=== PATIENT | male | born 1940 | race Caucasian/White ===

== ENCOUNTER 2017-04-23 02:48 | Inpatient (IN) | payer MEDICARE, OTHER ==
[2017-04-23] MEDS ORDERED: methylPREDNISolone Sod Succ/PF 125 MG/2 ML VIAL ONE (02:59)
[2017-04-23] MEDS ORDERED: Albuterol Sulfate 2.5 mg/3 ml Neb ONE (03:08)
[2017-04-23] MEDS ORDERED: Midazolam HCl 2 mg/2 ml Vial ONE (03:11)
[2017-04-23 03:25] LABS: pH, Arterial 7.37 (7.35-7.45)
[2017-04-23 03:25] LABS: Hemoglobin 9.9 g/dL (14.0-18.0); MDiff Complete? YES; Mean Corpuscular HGB CONC 29.8 g/dL (32.0-36.0); Mean Corpuscular Hemoglobin 27.7 pg (27.0-31.0); Mean Corpuscular Volume 92.8 fl (80.0-94.0); Mean Platelet Volume 6.3 fL (7.4-10.4); Platelet Count 365 thou/uL (130-400); RBC Distribution Width 18.4 % (11.5-14.5); Red Blood Cell (RBC) Count 3.57 mill/uL (4.70-6.10)
[2017-04-23 03:26] LABS: Eosinophils 1 % (0-10); Lymphocytes 10 % (21-51); Monocytes 2 % (0-10); Neutrophil 87 % (42-75); PLT Morphology Comment Appears Adequate
[2017-04-23 03:26] LABS: Base Excess (BEa) 5.8 mEq/L (0 (+/-) 2.5); CO2 Tension 56.8 mmHg (35.0-45.0); Hematocrit-ABG 28.9 % (42.0-52.0); Hemoglobin (Hb) 8.4 g/dL (14.0-18.0); O2 Tension (PaO2) 87.9 mmHg (80.0-100.0)
[2017-04-23 03:27] LABS: Analyzer IN Cardio ER; Calcium, Ionized 1.2 mmol/L (1.12-1.30); Puncture Site LRA
[2017-04-23 03:31] LABS: ALT (SGPT) 45 U/L (8-55); AST (SGOT) 41 U/L (5-34); Albumin 3.1 g/dL (3.4-4.8); Alkaline Phosphatase 51 U/L (40-150); Anion Gap 15 mmol/L (10-20); BUN (Urea Nitrogen) 22 mg/dL (8.4-25.7); Bilirubin, Total 0.5 mg/dL (0.2-1.2); CK (CPK) 21 U/L (30-200); Calc. Creatinine Clearance 0 mL/min (70-130); Carbon Dioxide 31 mmol/L (23-31); Chloride 94 mmol/L (98-107); Estimated GFR-MDRD 80; Globulin 2.3 g/dL (2.4-3.5); Glucose 229 mg/dL (83-110); Potassium 5.3 mmol/L (3.5-5.1); Protein, Total 5.4 g/dL (5.8-8.1); Sodium 135 mmol/L (136-145)
[2017-04-23 03:35] LABS: CKMB 2.1 ng/mL (0-6.6); Troponin I 0.094 ng/mL (< 0.028)
[2017-04-23] MEDS ORDERED: Propofol 1,000 MG/100 ML VIAL IV ONE (03:35)
[2017-04-23] MEDS ORDERED: Azithromycin 500 MG in Sodium Chloride 0.9% 250 ML 250 ML IVPB SCH (03:45)
--- NOTE | 2017-04-23 08:20 | RAD ---
SINGLE VIEW OF THE CHEST: COMPARISON: 03/24/11. HISTORY: Respiratory distress. FINDINGS: A single view of the chest shows an enlarged but stable cardiomediastinal silhouette. An endotrachea l tube is seen with its tip between the clavicles. An NG tube has its tip in the stomach and its stephan eport near the esophagogastric junction. A left-sided pacemaker has been placed in the interval. It s leads are in the right atrium and ventricle. There appears to be elevation of the right hemidiaphr agm, but this could represent a moderate right pleural effusion. There are multifocal increased inte rstitial lung markings. There appear to be superimposed multifocal infiltrates. There are remote he aled right rib fractures. IMPRESSION: 1. Moderate right pleural effusion. 2. Multifocal pneumonia. POS: [facility]
[2017-04-23] MEDS ORDERED: Enoxaparin Sodium 40 MG/0.4 ML SYRINGE SC SCH (09:00)
[2017-04-23] MEDS: Cefepime 2 GM in Syringe 12.5 ML SLOW IVP SCH ×2 (09:19→21:10)
[2017-04-23] MEDS: Pantoprazole 40 MG VIAL IVP SCH (09:20)
[2017-04-23 09:33] LABS: Lactic Acid 2.4 mmol/L (0.5-2.2)
[2017-04-23] MEDS ORDERED: fentaNYL Citrate/PF 2,000 MCG in Sodium Chloride 0.9% 60 ML IV SCH (09:48)
[2017-04-23] MEDS: Vancomycin HCl 1 GM in Premix Bag 1 BAG IVPB SCH ×2 (09:56→21:54)
[2017-04-23] MEDS ORDERED: Dextrose 5 % And 0.9 % NaCl 1,000 ML IV SCH (10:00)
[2017-04-23] MEDS ORDERED: Sodium Chloride 0.9% 1,000 ML IV SCH (12:15)
--- NOTE | 2017-04-23 13:04 | CON ---
DATE OF CONSULTATION: 04/23/2017 HISTORY OF PRESENT ILLNESS: Mr. Kasper is a 77-year-old male. He is not someone who has been in [facility] frequently here. He presented via EMS after being in the field, intubated. EMS was called for shortness of breath. Apparently they started him on CPAP, he became unresponsive, so he was intubated. He received 200 ketamine, 100 mg of rocuronium and 10 mg of Versed prior to arrival reportedly. PAST MEDICAL HISTORY: According to the ER records are remarkable for coronary disease, cardiomyopath y, atrial fibrillation, diabetes, hypertension, COPD, asthma, pneumonia and a pacemaker. SOCIAL HISTORY: It is unknown whether he smokes or drinks. ALLERGIES: There are no reported drug allergies prior to admission. MEDICATIONS: It is unclear what medicines he was on. REVIEW OF SYSTEMS: Cannot be obtained. PHYSICAL EXAMINATION: VITAL SIGNS: Blood pressure 124/37, heart rate 71, he is afebrile, respiratory rate is 20, oximetry is 99. HEENT: Pupils are equal. Sclerae are anicteric. LUNGS: Clear. GENERAL: He appears chronically ill. HEART: Regular rhythm. S1 and S2 are normal. ABDOMEN: Soft and nontender. EXTREMITIES: Without clubbing, cyanosis, or edema. LABORATORY DATA: White count 27, hemoglobin 9.9, platelets 365. Sodium 135, potassium 5.3, chloride 94, bicarbonate 31, BUN 22, creatinine 0.9, glucose 229, AST 41, ALT 45. CPK was 21, troponin 0.094 . BNP 1471, albumin 3.1. Chest radiographs, reviewed by me, shows diffuse infiltrates, worse on the right. IMPRESSION: Respiratory failure. In my opinion, his acute onset and chest radiographs are more cons istent with congestive heart failure than pneumonia. I do agree with treating with pneumonia at [facility] initially. Echocardiogram has been ordered. His professor of english should be consulted. It is unclear to me who he sees at this time. When family becomes available, I will be happy to meet with them. I found a stress test report from 2010, but this was ordered by one of the hospitalists. Getting into the old computer system, he has been seen by Dr. Infante in 2010. He was intubated in [facility] emergency department at that admission; he was extubated on the . I cannot find any evidence that he has been seen by a professor of english here. He did have a severe FEV1 r eduction on PFTs done when he was seen in [address] Infante. We will continue to support him. We will await echocardiogram, and I will review that. We will probably consult Cardiology. We will con tinue with IV antibiotics for now. Steroids will be added and nebulizer treatments will be added as well. Critical care time 35 minutes.
--- NOTE | 2017-04-23 14:30 | CON ---
DATE OF CONSULTATION: 04/23/2017 REASON FOR CONSULTATION: Respiratory failure. HISTORY OF PRESENT ILLNESS: Ms. Kasper is a 77-year-old man. The patient was brought to the hospital with respiratory failure and is intubated on the ventilator, very little history is available at the present time. The patient was found to be in respiratory failure in the field, EMS intubated and brought him to her e. PAST MEDICAL HISTORY: 1. The patient has a history of coronary artery disease, but no other information is available. 2. History of cardiomyopathy. 3. History of atrial fibrillation. 4. Diabetes. 5. COPD. 6. Asthma. 7. Pneumonia. 8. Previous pacemaker. SOCIAL HISTORY: Unknown if he smokes or drinks. ALLERGIES: No reported drug allergies. MEDICATIONS: Unknown at the present time. REVIEW OF SYSTEMS: Not obtainable, intubated on the ventilator. PHYSICAL EXAMINATION: GENERAL: This is a critically ill-appearing elderly gentleman who looks older than his stated age at 77. VITAL SIGNS: His blood pressure is 124/40, pulse is 70. HEENT: Eyes nonicteric. NECK: Neck veins are normal. Carotid normal upstrokes. LUNGS: There is diffuse expiratory wheezing, some rhonchi. CARDIAC: Normal S1, normal S2. Somewhat distant. I do not hear a murmur, rub or gallop. ABDOMEN: Soft, nontender, no hepatosplenomegaly. EXTREMITIES: No clubbing or cyanosis. There is moderate edema. Warm and dry. Peripheral pulses: He has femoral pulses bilaterally. I do not feel pedal pulses on either foot, I do not feel poplitea l pulses. He is intubated and sedated. LABORATORY AND X-RAY FINDINGS: EKG reveals what looks like atrial fibrillation with some ST and T-wa ve changes, consider ischemia. Chest x-ray shows congestive heart failure, pulmonary vascular congestion, large right pleural effusi on, probable pneumonia. The pacemaker is in place as well. Other laboratory data: BNP is elevated at 1471.8. Troponin 0.094 initially and 0.9 followup. ASSESSMENT: 1. Congestive heart failure. Echocardiogram showed normal left ventricular function; therefore, it appears to be acute diastolic heart failure, probably on chronic, most likely acute on chronic diasto lic heart failure. 2. Non-ST elevation infarction, probably demand ischemia secondary likely to respiratory insufficien cy. 3. Underlying coronary artery disease. 4. Atrial fibrillation, unknown chronicity. PLAN: 1. Hopefully, some old records could be obtained. 2. We will give him some intravenous Lasix. 3. Aspirin. Prognosis is guarded in this gentleman. Hopefully, as mentioned other information could be obtained and it appears he also has pneumonia.
[2017-04-23] MEDS: Sodium Chloride 0.9% 1,000 ML IV SCH (14:40)
[2017-04-23] MEDS: Furosemide 20 MG/2 ML VIAL SLOW IVP SCH (15:59)
--- NOTE | 2017-04-23 16:30 | HP ---
CHIEF COMPLAINT: Short of breath, intubated. HISTORY OF PRESENT ILLNESS: This is a 77-year-old man with a history of chronic obstructive pulmonar y disease, on home oxygen. He was noted to have respiratory distress at home. EMS was activated. Desiree yun was given nebulizer and CPAP was placed, and he became more altered and breathing was stopped, so desiree e was intubated by the EMS with a 7.0 tube and given Versed and they brought him to the ER. PAST MEDICAL HISTORY: History of atrial fibrillation, COPD, pacemaker, MD. MEDICATIONS: He is taking levofloxacin 750 daily, [place] 10/325 daily, methylprednisone 4 mg daily, a torvastatin 80 mg daily, Symbicort aerosol twice daily, clopidogrel 75 daily, diltiazem 240 mg daily, Multaq 400 mg daily, ferrous sulfate 325 every day, furosemide 40 mg every day, gabapentin 300 mg da andrew, hydroxyzine 20 mg daily, DuoNeb, Combivent, Lopressor 50 daily, potassium daily, Xarelto 20 mg d aily, Spiriva 2 puffs daily. REVIEW OF SYSTEMS: Not possible, because intubated and sedated. PHYSICAL EXAMINATION: GENERAL: He is a 77-year-old man, lying in the bed, intubated, and sedated on FiO2 50%, tidal volume 350 and PEEP 5. HEENT: Head is normocephalic. Pupils are round and reactive. Ears, nose, throat normal. NECK: Good pple, no JVD. Trachea midline. CHEST EXAMINATION: Intubated and he has bilateral decreased breath sounds with diffuse expiratory wh eezing or rhonchi. CARDIOVASCULAR: S1, S2 audible. No S3 or S4. ABDOMEN: Soft. Bowel sounds audible. No distention, no mass, no organomegaly. EXTREMITIES: He has bilateral pedal edema present that is +2. NEUROLOGIC: He is a GCS 3, intubated and sedated. SKIN: Normal in color. LABORATORY DATA: Shows EKG, atrial fibrillation with controlled rate, no ST changes. A chest x-ray shows right upper lobe infiltrate. Lab shows WBC of 27.0, hematocrit 33.1, hemoglobin 9.0, platelets 365. Sodium 135, potassium 5.3, ch loride 94, carbon dioxide 31, BUN 20, creatinine 0.9, GFR 80. Lactic acid 3.7, calcium 9.0, total bi lirubin 0.5, AST 41, ALT 45. Troponin 0.094. BNP 1471.8. Serum protein 5.4, albumin 3.1, and globu lesia 2.3, albumin ratio 1.3. Blood gas shows a pH of 7.37, pCO2 of 56, pO2 of 87, bicarbonate 32. Ch est x-ray shows the above infiltrate. ASSESSMENT AND PLAN: 1. Acute respiratory failure with hypoxia and hypercapnia. 2. Chronic obstructive pulmonary disease. 3. Intubated and sedated. Continue ventilator protocol, IV propofol for sedation. Litigation Docket Manager, Dr. Peoples, consulted. 4. Sepsis secondary to pneumonia. Blood culture x2 was done. Continue IV Rocephin and Zithromax. Follow CBC. 5. History of chronic obstructive pulmonary disease. Continue nebulizer. 6. Deep venous thrombosis prophylaxis will be Lovenox and stress ulcer prophylaxis PPI. PROGNOSIS: Guarded.
[2017-04-23] MEDS: Lorazepam 2 MG/ML VIAL SLOW IVP PRN ×2 (17:26→21:10)
[2017-04-23 17:41] LABS: Bilirubin Negative (Negative); Blood, Urine Large (Negative); Clarity CLEAR (Clear); Glucose, Urine (Dipstick) Negative (Negative); Leukocyte Small (Negative); Nitrite Negative (Negative); Protein, Urine (Dipstick) Negative (Neg-Trace); Specific Gravity, Urine 1.015 (1.002-1.036); Urobilinogen 0.2 mg/dL (0.2-1.0); pH, Urine 6.5 (5.0-9.0)
[2017-04-23 17:44] LABS: Bacteria/HPF None Seen HPF (None Seen); Hyaline Casts/LPF 4-6 HYALINE CAST LPF (0-3 Hyaline); Pathc Cast-AUWi Flag 1.35 (0-2.49); RBC/HPF 21-50 HPF (0-3)
[2017-04-23 18:13] LABS: Renal Epithelial 0-3 HPF (0-3)
[2017-04-23 19:10] LABS: Troponin I 1.056 ng/mL (< 0.028)
[2017-04-23] MEDS: Enoxaparin Sodium 60 MG/0.6 ML SYRINGE SC SCH (20:11)
[2017-04-23] MEDS: Propofol 1,000 MG/100 ML VIAL IV PRN (20:11)
[2017-04-24] MEDS: Lorazepam 2 MG/ML VIAL SLOW IVP PRN ×3 (03:19→12:32)
[2017-04-24] MEDS: Propofol 1,000 MG/100 ML VIAL IV PRN ×4 (05:08→23:31)
[2017-04-24] MEDS: Furosemide 20 MG/2 ML VIAL SLOW IVP SCH ×2 (05:08→15:02)
[2017-04-24 05:15] LABS: #Lymphocytes 0.7 thou/uL (1.20-3.40); #Monocytes 0.2 thou/uL (0.11-0.59); #Neutrophils 10.8 thou/uL (1.40-6.50); %Basophils 0.1 % (0.0-1.0); %Eosinophils 0.2 % (0.0-10.0); %Lymphocytes 6.3 % (21.0-51.0); %Monocytes 1.7 % (0.0-10.0); %Neutrophils 91.8 % (42.0-75.0); Hemoglobin 8.3 g/dL (14.0-18.0); Mean Corpuscular Hemoglobin 28.7 pg (27.0-31.0); Mean Corpuscular Volume 89.7 fl (80.0-94.0); Mean Platelet Volume 6.8 fL (7.4-10.4); Platelet Count 206 thou/uL (130-400); RBC Distribution Width 18.5 % (11.5-14.5); Red Blood Cell (RBC) Count 2.89 mill/uL (4.70-6.10); White Blood Cell (WBC) Count 11.8 thou/uL (4.8-10.8)
[2017-04-24 05:19] LABS: ALT (SGPT) 30 U/L (8-55); AST (SGOT) 22 U/L (5-34); Albumin 2.9 g/dL (3.4-4.8); Alkaline Phosphatase 43 U/L (40-150); Anion Gap 12 mmol/L (10-20); BUN (Urea Nitrogen) 22 mg/dL (8.4-25.7); Bilirubin, Total 0.5 mg/dL (0.2-1.2); Calc. Creatinine Clearance 81 mL/min (70-130); Calcium 8.8 mg/dL (7.8-10.44); Carbon Dioxide 32 mmol/L (23-31); Chloride 99 mmol/L (98-107); Estimated GFR-MDRD Greater than 90; Globulin 2.1 g/dL (2.4-3.5); Glucose 112 mg/dL (83-110); Potassium 4.5 mmol/L (3.5-5.1); Sodium 138 mmol/L (136-145)
[2017-04-24 05:39] LABS: Anisocytosis SLIGHT = 6-15 cells (100X) (0-5/hpf); Band 3 % (5-11); Bite Cells SLIGHT = 2-5 cells (100X) (0-1/hpf); Hemoglobin 8.3 g/dL (14.0-18.0); Lymphocytes 8 % (21-51); MDiff Complete? YES; Mean Corpuscular HGB CONC 32.3 g/dL (32.0-36.0); Mean Corpuscular Volume 89.7 fl (80.0-94.0); Mean Platelet Volume 6.9 fL (7.4-10.4); Neutrophil 89 % (42-75); PLT Morphology Comment Appears Adequate; Platelet Count 206 thou/uL (130-400); RBC Distribution Width 18.5 % (11.5-14.5); Red Blood Cell (RBC) Count 2.88 mill/uL (4.70-6.10); Schistocytes SLIGHT = 2-5 cells (100X) (0-1/hpf); White Blood Cell (WBC) Count 11.8 thou/uL (4.8-10.8)
--- NOTE | 2017-04-24 09:03 | RAD ---
CHEST ONE VIEW: History: Dyspnea, follow up. Comparison: 04-23-17 FINDINGS: Cardiac silhouette is magnified by projection and partially obscured by pleural fluid and patchy biba silar infiltrates, right greater than left. Pulmonary vasculature remains engorged with wide-spread r eticular nodular interstitial prominence. Patient rotated leftward. Lines and tubes appear unchanged in position. IMPRESSION: 1. Pulmonary edema with pleural fluid and other findings is stable compared to the previous exam. POS: [facility]
[2017-04-24] MEDS: Cefepime 2 GM in Syringe 12.5 ML SLOW IVP SCH ×2 (09:18→20:12)
[2017-04-24] MEDS: Enoxaparin Sodium 60 MG/0.6 ML SYRINGE SC SCH (09:19)
[2017-04-24] MEDS: Pantoprazole 40 MG VIAL IVP SCH (09:19)
[2017-04-24] MEDS: Vancomycin HCl 1 GM in Premix Bag 1 BAG IVPB SCH ×2 (09:19→22:19)
[2017-04-24] MEDS: Sodium Chloride 0.9% 1,000 ML IV SCH (09:40)
[2017-04-24 10:19] LABS: pH, Arterial 7.58 (7.35-7.45)
[2017-04-24 10:20] LABS: Base Excess (BEa) 8.6 mEq/L (0 (+/-) 2.5); CO2 Tension 33.6 mmHg (35.0-45.0); Calcium, Ionized 1.1 mmol/L (1.12-1.30); Hemoglobin (Hb) 8.2 g/dL (14.0-18.0); O2 Tension (PaO2) 117.8 mmHg (80.0-100.0); Puncture Site LRA
--- NOTE | 2017-04-24 13:16 | PRG ---
DATE OF SERVICE: 04/24/2017 SUBJECTIVE: Mr. Kasper is intubated and on the ventilator, sedated. OBJECTIVE: VITAL SIGNS: Blood pressure 119/43, pulse 80. LUNGS: Clear. CARDIAC: Heart sounds are easier to hear today. There is a 2-3/6 crescendo-decrescendo murmur along the left sternal border and systolic. ABDOMEN: Soft, nontender. EXTREMITIES: Only mild edema. IMAGING: Echocardiogram, normal ejection fraction, mild to moderate aortic stenosis. ASSESSMENT: 1. Respiratory failure. 2. Coronary artery disease, no details available. 3. Mild to moderate aortic stenosis. 4. History of atrial fibrillation. 5. Previous pacemaker insertion. 6. Pacemaker is a [employer] device, normal device check, A-pacing 93%, currently in sinus rhythm, 25 episodes of atrial fibrillation since January, battery is okay. PLAN: 1. Continue current medical regimen. 2. Continue intravenous furosemide. 3. Reduce Lovenox back to 40 q.12 hours as he is maintaining sinus rhythm.
--- NOTE | 2017-04-24 13:18 | PRG ---
DATE OF SERVICE: 04/24/2017 SUBJECTIVE: Mr. Kasper is hemodynamically stable overnight. PHYSICAL EXAMINATION: VITAL SIGNS: His temperature maximum was 99.4. Respiratory rate is in 20s when he is sedated. Heart rate is 94, blood pressure 124/59. Intake and output is -438. GENERAL: He will awaken. He is pretty much all over the bed if he awakens. LUNGS: Remarkable for crackles bilaterally. HEART: Regular rhythm. ABDOMEN: Soft. LABORATORY DATA AND IMAGING DATA: White count 13.8, hemoglobin 8.3, platelets 206,000. Sodium 138, potassium 4.5, chloride 99, bicarbonate 32, BUN 22, creatinine 0.78. Chest radiograph reviewed by me shows what appears to be a large right effusion. Echocardiogram showed noncritical aortic stenosis and a normal ejection fraction. IMPRESSION: 1. Pneumonia. 2. Respiratory failure. 3. ? underlying pulmonary fibrosis. I do not have any old imaging for comparison. PLAN: Continue ventilatory support. CT scanning of his chest today without contrast. Continue gentle diuresis. CRITICAL CARE TIME : Reviewing radiographs records and coordinating care 30 minutes. [facility]
--- NOTE | 2017-04-24 14:06 | CT ---
EXAM: CT chest without contrast DATE: 04/24/17 COMPARISON: 04/24/17 FINDINGS: The patient is intubated, endotracheal tube tip below the clavicles. An enteric tube tip is in the g astric body. There are large bilateral layering pleural effusions. Heart size is enlarged. No pericardial effusi on. Numerous mediastinal lymph nodes are present, the majority of these contain normal fatty hilum. Healing right lateral 3rd, right lateral 4th, right anterior 4th, right lateral 5th, right lateral 6t h, 8th, 9th, 10th rib fractures. There are also healing left anterior 4th, 5th, and 6th rib fracture s, and lateral 7th, 8th, 9th, and 10th rib fractures. There are spine compression fractures at T4 and T5 and T11. The gallbladder is mildly distended. Th e spleen measures 14.5 cm. IMPRESSION: 1. Large bilateral layering pleural effusions. 2. Airspace consolidation in the right middle lobe and right upper lobe concerning for pneumonia. 3. Cardiomegaly. 4. Numerous bilateral rib fractures. POS: [facility]
--- NOTE | 2017-04-24 16:39 | PDOC.PN ---
- Subjective Encounter Start Date: 04/24/17 Encounter Start Time: 16:38 Patient seen and examined. No new complaints. No overnight events - Objective MAR Reviewed: Yes Vital Signs & Weight: Vital Signs (12 hours) Temp Pulse Resp BP Pulse Ox 04/24/17 16:00 99.3 F 22 H 04/24/17 14:36 82 109/44 L 04/24/17 14:34 85 20 97 04/24/17 14:00 21 H 04/24/17 12:00 99.4 F 20 04/24/17 11:19 77 119/43 L 04/24/17 11:18 81 23 H 97 04/24/17 10:00 20 04/24/17 08:00 20 04/24/17 07:44 99.3 F 74 20 98 04/24/17 07:10 74 130/43 L 04/24/17 07:08 71 20 99 04/24/17 07:00 99.3 F 04/24/17 06:00 20 Weight Admit Weight 158 lb Weight 158 lb 8.198 oz Most Recent Monitor Data Heart Rate from ECG 82 NIBP 109/44 NIBP BP-Mean 84 Respiration from ECG 21 SpO2 99 I&O: 04/23/17 04/24/17 04/25/17 06:59 06:59 06:59 Intake Total 1877 200 Output Total 2315 635 Balance -438 -435 Result Diagrams: 04/24/17 04:37 04/24/17 04:37 Phys Exam - Physical Examination intubated HEENT: moist MMs Neck: no JVD decreased bs at bases Cardiovascular: no significant murmur Musculoskeletal: pulses present Dx/Plan (1) Acute respiratory failure Code(s): J96.00 - ACUTE RESPIRATORY FAILURE, UNSP W HYPOXIA OR HYPERCAPNIA Status: Acute (2) PNA (pneumonia) Code(s): J18.9 - PNEUMONIA, UNSPECIFIED ORGANISM Status: Acute (3) Sepsis Code(s): A41.9 - SEPSIS, UNSPECIFIED ORGANISM Status: Acute (4) Pleural effusion Code(s): J90 - PLEURAL EFFUSION, NOT ELSEWHERE CLASSIFIED Status: Acute - Plan * cont vent support * abx * gentle diuresis * f/u pulm and card plan
[2017-04-24] MEDS: Enoxaparin Sodium 40 MG/0.4 ML SYRINGE SC SCH (20:11)
[2017-04-24 21:26] LABS: Vancomycin, Trough 16.6 ug/mL
[2017-04-25] MEDS: Lorazepam 2 MG/ML VIAL SLOW IVP PRN (00:23)
[2017-04-25] MEDS: Propofol 1,000 MG/100 ML VIAL IV PRN ×3 (04:59→17:52)
[2017-04-25] MEDS: Furosemide 20 MG/2 ML VIAL SLOW IVP SCH ×2 (05:00→13:25)
[2017-04-25 05:41] LABS: #Lymphocytes 0.7 thou/uL (1.20-3.40); #Monocytes 0.2 thou/uL (0.11-0.59); #Neutrophils 7.7 thou/uL (1.40-6.50); %Basophils 0.1 % (0.0-1.0); %Eosinophils 0.1 % (0.0-10.0); %Lymphocytes 8.5 % (21.0-51.0); %Monocytes 2.5 % (0.0-10.0); %Neutrophils 88.8 % (42.0-75.0); Hemoglobin 9.5 g/dL (14.0-18.0); Mean Corpuscular HGB CONC 32.4 g/dL (32.0-36.0); Mean Corpuscular Hemoglobin 29.1 pg (27.0-31.0); Mean Corpuscular Volume 89.8 fl (80.0-94.0); Mean Platelet Volume 6.9 fL (7.4-10.4); Platelet Count 204 thou/uL (130-400); RBC Distribution Width 18.5 % (11.5-14.5); Red Blood Cell (RBC) Count 3.28 mill/uL (4.70-6.10); White Blood Cell (WBC) Count 8.7 thou/uL (4.8-10.8)
[2017-04-25 06:02] LABS: Band 3 % (5-11); Hemoglobin 9.5 g/dL (14.0-18.0); Lymphocytes 6 % (21-51); MDiff Complete? YES; Mean Corpuscular HGB CONC 32.9 g/dL (32.0-36.0); Mean Corpuscular Hemoglobin 29.5 pg (27.0-31.0); Mean Corpuscular Volume 89.5 fl (80.0-94.0); Mean Platelet Volume 6.8 fL (7.4-10.4); Monocytes 3 % (0-10); Neutrophil 88 % (42-75); PLT Morphology Comment Appears Adequate; Platelet Count 202 thou/uL (130-400); RBC Distribution Width 18.5 % (11.5-14.5); Red Blood Cell (RBC) Count 3.23 mill/uL (4.70-6.10); White Blood Cell (WBC) Count 8.7 thou/uL (4.8-10.8)
[2017-04-25 06:10] LABS: Lactic Acid 1.1 mmol/L (0.5-2.2)
[2017-04-25] MEDS: Sodium Chloride 0.9% 1,000 ML IV SCH ×2 (06:16→12:00)
[2017-04-25 06:36] LABS: ALT (SGPT) 25 U/L (8-55); AST (SGOT) 20 U/L (5-34); Albumin 2.8 g/dL (3.4-4.8); Alkaline Phosphatase 44 U/L (40-150); Anion Gap 15 mmol/L (10-20); BUN (Urea Nitrogen) 23 mg/dL (8.4-25.7); Bilirubin, Total 0.6 mg/dL (0.2-1.2); Calc. Creatinine Clearance 85 mL/min (70-130); Calcium 9.1 mg/dL (7.8-10.44); Carbon Dioxide 26 mmol/L (23-31); Chloride 101 mmol/L (98-107); Estimated GFR-MDRD Greater than 90; Globulin 2.5 g/dL (2.4-3.5); Glucose 117 mg/dL (83-110); Protein, Total 5.3 g/dL (5.8-8.1); Sodium 138 mmol/L (136-145)
[2017-04-25 08:01] LABS: Actual Bicarbonate (HCO3a) 33.1 mEq/L (22-26); Base Excess (BEa) 7.8 mEq/L (0 (+/-) 2.5); CO2 Tension 50.8 mmHg (35.0-45.0); Hemoglobin (Hb) 8.2 g/dL (14.0-18.0); O2 Tension (PaO2) 80.3 mmHg (80.0-100.0); pH, Arterial 7.43 (7.35-7.45)
[2017-04-25 08:02] LABS: Puncture Site LRA
[2017-04-25] MEDS: Cefepime 2 GM in Syringe 12.5 ML SLOW IVP SCH ×2 (08:07→20:25)
[2017-04-25] MEDS: Enoxaparin Sodium 40 MG/0.4 ML SYRINGE SC SCH ×2 (08:08→20:25)
[2017-04-25] MEDS: Pantoprazole 40 MG VIAL IVP SCH (08:08)
--- NOTE | 2017-04-25 10:22 | RAD ---
SINGLE VIEW OF THE CHEST: Comparison: 04-24-17 History: Ventilated patient with respiratory failure. FINDINGS: Single view of the chest shows an enlarged but stable cardiomediastinal silhouette. The lines and tub es are unchanged in position. The pacemaker is unchanged in position. There is a moderate right pleur al effusion. There appear to be multifocal infiltrates, unchanged, right greater than left. IMPRESSION: Stable exam. POS: [facility]
[2017-04-25] MEDS: Vancomycin HCl 1 GM in Premix Bag 1 BAG IVPB SCH ×2 (10:25→21:28)
--- NOTE | 2017-04-25 11:20 | PRG ---
DATE OF SERVICE: 04/25/2017 SUBJECTIVE: Mr. Kasper remains intubated on the ventilator. REVIEW OF SYSTEMS: Not obtainable. OBJECTIVE: VITAL SIGNS: Blood pressure 123/52, pulse is in the 80s-90s, it is irregular, atrial fibrillation. LUNGS: Clear. CARDIAC: Irregularly irregular. ABDOMEN: Soft and nontender. ASSESSMENT: 1. Respiratory failure. 2. Coronary artery disease, unknown status. 3. Paroxysmal atrial fibrillation, known atrial fibrillation. 4. Previous pacemaker implant. PLAN: Continue current medical regimen. Plans are being made to try to wean him from the ventilator . Records have been requested from [facility]. Apparently, he was just discharged from there r ecently.
--- NOTE | 2017-04-25 13:47 | PRG ---
DATE OF SERVICE: 04/25/2017 SUBJECTIVE: Mr. Kasper remains mechanically ventilated. He is in no distress. He is sedated. OBJECTIVE: VITAL SIGNS: He is afebrile, heart rate 84, blood pressure 113/51, respiratory rate in the high 20s. LUNGS: Remarkable for crackles on the right with decreased sounds in both lung bases. HEART: Regular rhythm. ABDOMEN: Soft. EXTREMITIES: Without asymmetry. LABORATORY DATA: White count 8.7, hemoglobin 9.5, platelets 202, 88 segs, 3% bands. Sodium 138, potassium 4, chloride 101, bicarbonate 26, BUN 23, creatinine 0.7, glucose 117, pH 7.43, CO2 50, pO2 80. Intake and output is negative, 448. Chest radiograph still shows alveolar infiltrates on the right with a pleural effusion. IMPRESSION: 1. Pneumonia. 2. Bilateral effusions. 3. Intermittent atrial fibrillation. 4. Aortic stenosis, mild to moderate. 5. History of coronary disease. 6. History of pacemaker. PLAN: We will probably need to place a small chest tube on the right. Culture of the fluid was sent it for analysis and lighting drain into pleurovac. It does not appear to be loculated by CT scanning, it is unclear how much is old versus new. We will try to obtain medical records from [facility]. X-ray reports would be at least a little helpful. He is currently not weanable. Critical care time was 30 minutes. [facility]
--- NOTE | 2017-04-25 14:36 | PDOC.PN ---
- Subjective Encounter Start Date: 04/25/17 Encounter Start Time: 08:40 -: old records requested/rev Pt seen and exmained, chart reviewed in its entirety, this si my first visit with this patient Admitted 2 days ago with PNA, Acute hypoxemic respiratory failure. Pt sedation turned off, he bcame very anxious and tachypneic and restarted. Pulm following. NO other acute events overnight. no F/C, no N/V/D/C, no arrhythmias ROS not obtainable due to intubated and sedated status - Objective MAR Reviewed: Yes Vital Signs & Weight: Vital Signs (12 hours) Temp Pulse Resp BP Pulse Ox 04/25/17 14:32 97 130/49 L 04/25/17 14:29 85 19 99 04/25/17 14:00 20 04/25/17 12:00 22 H 04/25/17 11:00 98.6 F 04/25/17 10:50 84 113/51 L 04/25/17 10:49 84 32 H 98 04/25/17 10:00 25 H 04/25/17 08:00 98.8 F 83 22 H 99 04/25/17 07:01 85 118/50 L 04/25/17 07:00 98.8 F 77 23 H 99 04/25/17 06:00 21 H 04/25/17 04:08 85 119/49 L 04/25/17 04:00 21 H 04/25/17 03:01 80 20 98 04/25/17 03:00 98.4 F Weight Admit Weight 158 lb Weight 157 lb 13.616 oz Most Recent Monitor Data Heart Rate from ECG 88 NIBP 130/49 NIBP BP-Mean 94 Respiration from ECG 14 SpO2 98 I&O: 04/24/17 04/25/17 04/26/17 06:59 06:59 06:59 Intake Total 1877 2157 Output Total 8929 8654 828 Balance -852 -731 -809 Result Diagrams: 04/25/17 05:23 04/25/17 05:23 Radiology Reviewed by me: Yes EKG Reviewed by me: Yes Phys Exam - Physical Examination Constitutional: NAD HEENT: PERRLA, moist MMs, sclera anicteric, oral pharynx no lesions orally intubated Neck: no nodes, no JVD, supple, full ROM Respiratory: no wheezing, no rales, no rhonchi, clear to auscultation bilateral Cardiovascular: RRR, no significant murmur, no rub Gastrointestinal: soft, non-tender, no distention, positive bowel sounds Musculoskeletal: pulses present, edema present Neurological: moves all 4 limbs Lymphatic: no nodes Deviation from normal: sedated and intubated Skin: no rash, normal turgor, cap refill <2 seconds Dx/Plan (1) Acute hypoxemic respiratory failure Code(s): J96.01 - ACUTE RESPIRATORY FAILURE WITH HYPOXIA Status: Acute Comment: intubated on vent, weaning per pulm,. appreciate Dr Anderson's assistance (2) PNA (pneumonia) Code(s): J18.9 - PNEUMONIA, UNSPECIFIED ORGANISM Status: Acute Qualifiers: Pneumonia type: due to unspecified organism Laterality: bilateral Lung location: unspecified part of lung Qualified Code(s): J18.9 - Pneumonia, unspecified organism (3) Sepsis Code(s): A41.9 - SEPSIS, UNSPECIFIED ORGANISM Status: Acute Qualifiers: Sepsis type: sepsis due to unspecified organism Qualified Code(s): A41.9 - Sepsis, unspecified organism (4) COPD (chronic obstructive pulmonary disease) Status: Chronic Qualifiers: COPD type: unspecified COPD Qualified Code(s): J44.9 - Chronic obstructive pulmonary disease, unspecified - Plan cont current plan of care, continue antibiotics, PT/OT, respiratory therapy, DVT proph w/lovenox * .
[2017-04-26] MEDS: Propofol 1,000 MG/100 ML VIAL IV PRN ×4 (00:25→17:41)
[2017-04-26] MEDS: Furosemide 20 MG/2 ML VIAL SLOW IVP SCH ×2 (05:05→14:30)
[2017-04-26 05:07] LABS: #Lymphocytes 0.7 thou/uL (1.20-3.40); #Monocytes 0.3 thou/uL (0.11-0.59); %Eosinophils 0.1 % (0.0-10.0); %Lymphocytes 7.4 % (21.0-51.0); %Monocytes 3.8 % (0.0-10.0); %Neutrophils 88.8 % (42.0-75.0); Mean Corpuscular HGB CONC 30.8 g/dL (32.0-36.0); Mean Corpuscular Hemoglobin 27.3 pg (27.0-31.0); Mean Corpuscular Volume 88.6 fl (80.0-94.0); Mean Platelet Volume 7.3 fL (7.4-10.4); Platelet Count 209 thou/uL (130-400); RBC Distribution Width 18.4 % (11.5-14.5); Red Blood Cell (RBC) Count 3.31 mill/uL (4.70-6.10); White Blood Cell (WBC) Count 9.1 thou/uL (4.8-10.8)
[2017-04-26 05:19] LABS: Anion Gap 13 mmol/L (10-20); BUN (Urea Nitrogen) 30 mg/dL (8.4-25.7); Calc. Creatinine Clearance 83 mL/min (70-130); Calcium 8.8 mg/dL (7.8-10.44); Carbon Dioxide 30 mmol/L (23-31); Chloride 101 mmol/L (98-107); Estimated GFR-MDRD Greater than 90; Glucose 133 mg/dL (83-110); Potassium 3.7 mmol/L (3.5-5.1); Sodium 140 mmol/L (136-145)
[2017-04-26 05:32] LABS: Band 6 % (5-11); Hemoglobin 9.1 g/dL (14.0-18.0); Lymphocytes 7 % (21-51); MDiff Complete? YES; Mean Corpuscular HGB CONC 30.7 g/dL (32.0-36.0); Mean Corpuscular Hemoglobin 27.3 pg (27.0-31.0); Mean Corpuscular Volume 88.7 fl (80.0-94.0); Mean Platelet Volume 7.3 fL (7.4-10.4); Monocytes 6 % (0-10); Neutrophil 81 % (42-75); Platelet Count 211 thou/uL (130-400); RBC Distribution Width 18.3 % (11.5-14.5); Red Blood Cell (RBC) Count 3.35 mill/uL (4.70-6.10); White Blood Cell (WBC) Count 9.2 thou/uL (4.8-10.8)
[2017-04-26 07:17] LABS: Actual Bicarbonate (HCO3a) 32.3 mEq/L (22-26); Base Excess (BEa) 8.3 mEq/L (0 (+/-) 2.5); CO2 Tension 42.6 mmHg (35.0-45.0); O2 Tension (PaO2) 75.7 mmHg (80.0-100.0)
[2017-04-26 07:18] LABS: Calcium, Ionized 1.2 mmol/L (1.12-1.30); Puncture Site LRA
--- NOTE | 2017-04-26 08:36 | RAD ---
CHEST 1 VIEW: HISTORY: Dyspnea. Followup. COMPARISON: 04/25/17. FINDINGS: Cardiac silhouette is magnified and partially obscured by bilateral pleural fluid, right greater than left. Pulmonary vasculature remains engorged. Patchy airspace each lung is similar in appearance t o the prior study. Lines and tubes appear unchanged in position. IMPRESSION: Pulmonary edema and other findings appear stable. POS: [facility]
[2017-04-26] MEDS: Pantoprazole 40 MG VIAL IVP SCH (08:41)
[2017-04-26] MEDS: Cefepime 2 GM in Syringe 12.5 ML SLOW IVP SCH ×2 (08:41→21:34)
--- NOTE | 2017-04-26 09:22 | PRG ---
DATE OF SERVICE: 04/26/2017 SUBJECTIVE: Mr. Kasper remains intubated on the ventilator. He is sedated, but he has to be restra ined. PHYSICAL EXAMINATION: VITAL SIGNS: Blood pressure is 140/50, pulse is in the 80-90 range, it is atrial fibrillation. LUNGS: Clear. CARDIAC: Irregular, irregular. ASSESSMENT: 1. Atrial fibrillation, paroxysmal, now it is persistent. 2. Anemia. 3. Respiratory failure. 4. Coronary disease. PLAN: 1. I am still trying to obtain records from [facility]. 2. Continue supportive care. No changes.
[2017-04-26] MEDS: Enoxaparin Sodium 40 MG/0.4 ML SYRINGE SC SCH ×2 (09:39→21:35)
[2017-04-26] MEDS: Vancomycin HCl 1 GM in Premix Bag 1 BAG IVPB SCH (09:39)
[2017-04-26 09:55] LABS: Vancomycin, Trough 22.1 ug/mL
--- NOTE | 2017-04-26 11:04 | PRG ---
DATE OF SERVICE: 04/26/2017 We still have not received records from [facility]. PHYSICAL EXAMINATION: VITAL SIGNS: Blood pressure 136/43, heart rate 85, respiratory rate 23. GENERAL: He is awake and alert, moves all extremities Nods appropriately. LUNGS: Remarkable for coarse equal breath sounds. His chest exam is improved dramatically compared to when he presented. CARDIOVASCULAR: Regular rhythm. ABDOMEN: Soft. LABORATORY: White count 9.2, hemoglobin 9.1, platelets 211. Sodium 140, potassium 3.7, chloride 101 , bicarb 30, BUN 30, creatinine 0.72. Intake and output is positive 527. IMPRESSION: 1. Respiratory failure. 2. Pneumonia. 3. Bilateral pleural effusions. 4. Valvular heart disease. 5. Intermittent atrial fibrillation in the past per pacemaker download, now in atrial fibrillation. 6. History of coronary disease. PLAN: Continue to await for records. We will decrease ventilatory support dramatically and see how he does today. May consider sitting hi m up, doing a thoracentesis on the right and then extubate him tomorrow if he has a good day. Critical care time was 30 minutes.
--- NOTE | 2017-04-26 12:48 | PDOC.PN ---
- Subjective Encounter Start Date: 04/26/17 Encounter Start Time: 10:00 -: non-verbal no acute events overnight, on PSV. Plan to PSV today, tomorrow sit up and drain pleural fluid and extubate. Pt still very anxios when sedation stopped. No F/c, no Diarrhea, no vomiting, no acute event snoted case discussed with Dr Anderson - Objective MAR Reviewed: Yes Vital Signs & Weight: Vital Signs (12 hours) Temp Pulse Resp BP Pulse Ox 04/26/17 12:00 98.7 F 20 04/26/17 10:43 83 136/43 L 04/26/17 10:41 83 22 H 99 04/26/17 10:00 22 H 04/26/17 08:00 99.6 F 91 22 H 99 04/26/17 06:57 87 130/57 L 04/26/17 06:52 82 29 H 99 04/26/17 06:00 22 H 04/26/17 04:00 26 H 04/26/17 03:00 98.7 F 04/26/17 02:51 88 119/43 L 04/26/17 02:49 80 24 H 99 04/26/17 02:00 19 Weight Admit Weight 158 lb Weight 151 lb 0.266 oz Most Recent Monitor Data Heart Rate from ECG 90 NIBP 138/50 NIBP BP-Mean 106 Respiration from ECG 21 SpO2 98 I&O: 04/25/17 04/26/17 04/27/17 06:59 06:59 06:59 Intake Total 2157 2747 200 Output Total 2605 2220 675 Balance -448 527 -475 Result Diagrams: 04/26/17 04:29 04/26/17 04:29 Radiology Reviewed by me: Yes EKG Reviewed by me: Yes Phys Exam - Physical Examination Constitutional: NAD HEENT: PERRLA, moist MMs, sclera anicteric, oral pharynx no lesions Neck: no nodes, no JVD, supple, full ROM Respiratory: no wheezing, no rhonchi, clear to auscultation bilateral L>R posterior rales Cardiovascular: RRR, no significant murmur, no rub Gastrointestinal: soft, non-tender, no distention, positive bowel sounds Musculoskeletal: pulses present, edema present Neurological: moves all 4 limbs Lymphatic: no nodes Skin: no rash, normal turgor, cap refill <2 seconds Dx/Plan (1) Acute hypoxemic respiratory failure Code(s): J96.01 - ACUTE RESPIRATORY FAILURE WITH HYPOXIA Status: Acute Comment: intubated on vent, weaning per pulm,. appreciate Dr Anderson's assistance (2) PNA (pneumonia) Code(s): J18.9 - PNEUMONIA, UNSPECIFIED ORGANISM Status: Acute Qualifiers: Pneumonia type: due to unspecified organism Laterality: bilateral Lung location: unspecified part of lung Qualified Code(s): J18.9 - Pneumonia, unspecified organism (3) Sepsis Code(s): A41.9 - SEPSIS, UNSPECIFIED ORGANISM Status: Acute Qualifiers: Sepsis type: sepsis due to unspecified organism Qualified Code(s): A41.9 - Sepsis, unspecified organism (4) COPD (chronic obstructive pulmonary disease) Status: Chronic Qualifiers: COPD type: unspecified COPD Qualified Code(s): J44.9 - Chronic obstructive pulmonary disease, unspecified - Plan * .
[2017-04-26] MEDS: Vancomycin HCl 750 MG in Sodium Chloride 0.9% 250 ML 250 ML IVPB SCH (21:35)
[2017-04-27] MEDS: Propofol 1,000 MG/100 ML VIAL IV PRN ×5 (00:07→20:22)
[2017-04-27 04:27] LABS: Anion Gap 13 mmol/L (10-20); BUN (Urea Nitrogen) 36 mg/dL (8.4-25.7); Calc. Creatinine Clearance 89 mL/min (70-130); Calcium 8.7 mg/dL (7.8-10.44); Carbon Dioxide 29 mmol/L (23-31); Chloride 102 mmol/L (98-107); Estimated GFR-MDRD Greater than 90; Glucose 110 mg/dL (83-110); Potassium 3.8 mmol/L (3.5-5.1); Sodium 140 mmol/L (136-145)
[2017-04-27 04:50] LABS: Band 1 % (5-11); Hemoglobin 9.6 g/dL (14.0-18.0); Lymphocytes 6 % (21-51); MDiff Complete? YES; Mean Corpuscular HGB CONC 30.9 g/dL (32.0-36.0); Mean Corpuscular Hemoglobin 27.6 pg (27.0-31.0); Mean Corpuscular Volume 89.4 fl (80.0-94.0); Mean Platelet Volume 8.3 fL (7.4-10.4); Monocytes 4 % (0-10); Neutrophil 89 % (42-75); Platelet Count 184 thou/uL (130-400); RBC Distribution Width 18.6 % (11.5-14.5); Red Blood Cell (RBC) Count 3.48 mill/uL (4.70-6.10); White Blood Cell (WBC) Count 12.3 thou/uL (4.8-10.8)
[2017-04-27] MEDS: Furosemide 20 MG/2 ML VIAL SLOW IVP SCH ×2 (06:04→13:54)
--- NOTE | 2017-04-27 08:04 | RAD ---
SINGLE VIEW CHEST: Date: 04/27/17 COMPARISON: 04/26/17. HISTORY: Ventilated patient with respiratory failure. FINDINGS: Single view of the chest shows an enlarged cardiomediastinal silhouette with atherosclerotic calcific ations in the aorta. The pacemaker is unchanged in position. The endotracheal tube and NG tube are un changed in position. Opacity seen in the right lung base which likely represents an infiltrate and ad jacent pleural effusion. A small left pleural effusion may also be present. IMPRESSION: Stable exam. POS: [facility]
[2017-04-27] MEDS: Cefepime 2 GM in Syringe 12.5 ML SLOW IVP SCH ×2 (08:30→20:09)
[2017-04-27] MEDS: Pantoprazole 40 MG VIAL IVP SCH (08:31)
[2017-04-27] MEDS: Enoxaparin Sodium 40 MG/0.4 ML SYRINGE SC SCH (08:31)
--- NOTE | 2017-04-27 09:09 | RAD ---
SINGLE VIEW CHEST: Date: 04/27/17 COMPARISON: 04/27/17. HISTORY: Ventilated patient, status post right thoracocentesis. FINDINGS: Single view of the chest shows a normal sized cardiomediastinal silhouette. The pacemaker is unchange d in position. The endotracheal tube and NG tube re unchanged in position. The right-sided pleural ef fusion has significantly decreased in size and there is only a trace amount of fluid in the right cos tophrenic angle. No pneumothorax is seen. There likely is also a small left pleural effusion. IMPRESSION: Decreased size of right pleural effusion status post thoracocentesis without evidence of pneumothorax . POS: [facility]
[2017-04-27] MEDS: Scopolamine 1.5 mg/72 hour Patch TD SCH (09:11)
[2017-04-27] MEDS: Vancomycin HCl 750 MG in Sodium Chloride 0.9% 250 ML 250 ML IVPB SCH ×2 (09:12→21:19)
[2017-04-27 09:21] LABS: BF Color Yellow; BF RBC Count - Manual 87 /cumm; BF WBC/Nonhematics Ct. - Manua 35 /cumm; Body Fluid Source PLEURAL FLUID; Clarity Clear (Clear); Tube # EDTA
[2017-04-27 09:22] LABS: Pleural Fluid, Protein 1.4 g/dL
[2017-04-27 10:03] LABS: BF Segmented Neutrophils 5 %; Cell Count Non Hematic 78 %; Lymphocytes 17 %
--- NOTE | 2017-04-27 13:01 | PDOC.PN ---
- Subjective Encounter Start Date: 04/27/17 Encounter Start Time: 09:45 -: non-verbal Pt lightly sedated on 40 of propofol. opens eyes to verbal stimuli. PT still anxious. plan is to tap pleural fluid, wean. Nursing doenst think he's quite ready No F/c, no N/V/D/C, no acute overnight events. 10 point ROS not obtainable - Objective Resuscitation Status: FULL MAR Reviewed: Yes Vital Signs & Weight: Vital Signs (12 hours) Temp Pulse Resp BP Pulse Ox 04/27/17 12:19 87 155/58 H 04/27/17 12:00 98.7 F 26 H 04/27/17 10:00 31 H 04/27/17 09:00 99.8 F H 04/27/17 08:00 26 H 04/27/17 07:45 99.8 F H 82 25 H 94 L 04/27/17 07:34 82 118/43 L 04/27/17 06:00 26 H 04/27/17 04:00 99 F 28 H 04/27/17 02:53 87 113/40 L 04/27/17 02:51 79 23 H 95 04/27/17 02:00 24 H Weight Admit Weight 158 lb Weight 150 lb 2.157 oz Most Recent Monitor Data Heart Rate from ECG 85 NIBP 155/58 NIBP BP-Mean 100 Respiration from ECG 27 SpO2 98 I&O: 04/26/17 04/27/17 04/28/17 06:59 06:59 06:59 Intake Total 2747 2768 Output Total 2220 2125 730 Balance 527 643 -730 Result Diagrams: 04/27/17 03:55 04/27/17 03:55 Radiology Reviewed by me: Yes EKG Reviewed by me: Yes Phys Exam - Physical Examination Constitutional: NAD HEENT: PERRLA, moist MMs, sclera anicteric, oral pharynx no lesions oral ETT, OGT Neck: no nodes, no JVD, supple, full ROM Respiratory: no wheezing, no rales, no rhonchi Cardiovascular: RRR, no significant murmur, no rub Gastrointestinal: soft, non-tender, no distention, positive bowel sounds Musculoskeletal: edema present edema improved Neurological: non-focal, normal sensation, moves all 4 limbs Lymphatic: no nodes Deviation from normal: lightly seate on propofol, arouses and opens eyes to verbal stim Skin: no rash, normal turgor, cap refill <2 seconds Dx/Plan (1) Acute hypoxemic respiratory failure Code(s): J96.01 - ACUTE RESPIRATORY FAILURE WITH HYPOXIA Status: Acute Comment: intubated on vent, weaning per pulm,. appreciate Dr Anderson's assistance (2) PNA (pneumonia) Code(s): J18.9 - PNEUMONIA, UNSPECIFIED ORGANISM Status: Acute Qualifiers: Pneumonia type: due to unspecified organism Laterality: bilateral Lung location: unspecified part of lung Qualified Code(s): J18.9 - Pneumonia, unspecified organism (3) Sepsis Code(s): A41.9 - SEPSIS, UNSPECIFIED ORGANISM Status: Acute Qualifiers: Sepsis type: sepsis due to unspecified organism Qualified Code(s): A41.9 - Sepsis, unspecified organism (4) COPD (chronic obstructive pulmonary disease) Status: Chronic Qualifiers: COPD type: unspecified COPD Qualified Code(s): J44.9 - Chronic obstructive pulmonary disease, unspecified - Plan cont current plan of care, continue antibiotics, PT/OT, respiratory therapy * .
[2017-04-27] MEDS: guaiFENesin 200 MG TAB PO SCH ×3 (13:54→20:10)
--- NOTE | 2017-04-27 13:58 | PRG ---
DATE OF SERVICE: 04/27/2017 SUBJECTIVE: Mr. Kasper has evaluated this morning. He is awake and alert. We set him up at the side of the bed. He had copious thick secretions in his mouth and in his endotracheal tube. PHYSICAL EXAMINATION: VITAL SIGNS: Heart rate 87, blood pressure 155/58, respiratory rate is in 20s. Intake and output is positive 643. LUNGS: Remarkable for coarse equal breath sounds. Decreased breath sounds at his right base. HEART: Regular rhythm. ABDOMEN: Soft and nontender. EXTREMITIES: Without clubbing, cyanosis, or edema. LABORATORY DATA: White count 12.3, hemoglobin 9.6, and platelets 184. LABORATORY: Sodium 140, potassium 3.8, chloride 102, bicarbonate 29, BUN 36, creatinine 0.67. There is no blood gas today. IMPRESSION: Respiratory failure associated with pneumonia and pleural effusion. PLAN: Thoracentesis. Given the tenacity of his secretions, we will start his scopolamine patch and decrease ventilatory support. I do not think he will do well and we extubated him. At this point, I do not think he will be able to clear his secretions. Discussed all the above with the and also received phone consent for thoracentesis. Explained that risks of bleeding, infection, and lung collapse were present, but unlikely. He agreed to proceed. Critical care time was 30 minutes excluding procedure. TOLU
--- NOTE | 2017-04-27 15:16 | OP ---
PROCEDURE PERFORMED: Thoracentesis. CONVERSION WORKER: Efren Anderson M.D. INDICATION: The patient was placed on just pressure support of 3. No PEEP and no volume ventilation , sitting on the side of the bed. DESCRIPTION OF THE PROCEDURE: His right posterior hemithorax was cleansed twice with chlorhexidine. A 10 mL of 1% lidocaine was used to anesthetize the skin and localized pleural fluid using a 19-gaug e needle. Once fluid was localized, an 8-Persian safety catheter was inserted into the pleural space without difficulty. One liter of clear yellow pleural fluid was evacuated. This was sent for approp riate studies. Postprocedure chest radiograph showed no pneumothorax. No air was aspirated during t he procedure. White count on the pleural fluid was 35, red count was 87, 70% lymphocytes, 5% segmented cells, pH wa s 7.5, protein was 1.4, LDH was 68 and glucose 135. IMPRESSION: 1. Right greater than left pleural effusion secondary to diastolic heart failure. He did not have s ignificant proteinuria that would lead to a pleural effusion and has no history of liver disease that makes valvular heart disease or diastolic heart failure the most likely cause. 2. Right lung infiltrate consistent with a pneumonia. 3. Respiratory failure. 4. Obesity and deconditioning. Last scopolamine patch increased mucolytics and hopefully be able to extubate him in the morning.
--- NOTE | 2017-04-27 18:58 | PRG ---
DATE OF SERVICE: 04/27/2017 SUBJECTIVE: Mr. Kasper remains intubated on the ventilator. Some medical records did fortunately c ome. He has had extensive hospitalization at [facility] recently. Reviewing the records it was found the followin. He has had severe peripheral vascular disease with multiple interventions of the lower extremitie s. 2. History of stent implantation of his coronaries. He had a stent 3.5 x 24 placed in his LAD, 3.0 x 15 in the right coronary in 2014. The patient haschronic diastolic heart failure, paroxysmal atria l fibrillation, and previous pacemaker insertion. Multiple procedures have been done as outlined in the chart by Dr. Fuentes. OBJECTIVE: VITAL SIGNS: Blood pressure is 140/40, pulse is variable. Earlier, he was in sinus atrial fibrillat ion in the 70s. LUNGS: Clear of any wheezing. There is rhonchi. CARDIAC: Irregular. ABDOMEN: Soft and nontender. ASSESSMENT: 1. Coronary disease, stable. 2. Chronic congestive heart failure, diastolic. 3. Peripheral vascular disease. PLAN: 1. Continue furosemide. 2. Continue enoxaparin. We will need increase doses what look like he is in atrial fibrillation celia te a bit. 3. Dr. Coleman available if needed this weekend.
[2017-04-27] MEDS: Enoxaparin Sodium 60 MG/0.6 ML SYRINGE SC SCH (20:09)
[2017-04-28] MEDS: guaiFENesin 200 MG TAB PO SCH ×6 (00:44→21:12)
[2017-04-28] MEDS: Propofol 1,000 MG/100 ML VIAL IV PRN ×5 (02:00→20:21)
[2017-04-28 04:59] LABS: Anion Gap 10 mmol/L (10-20); BUN (Urea Nitrogen) 43 mg/dL (8.4-25.7); Calc. Creatinine Clearance 88 mL/min (70-130); Calcium 8.7 mg/dL (7.8-10.44); Carbon Dioxide 33 mmol/L (23-31); Chloride 102 mmol/L (98-107); Estimated GFR-MDRD Greater than 90; Glucose 87 mg/dL (83-110); Potassium 3.2 mmol/L (3.5-5.1); Sodium 142 mmol/L (136-145)
[2017-04-28] MEDS: Furosemide 20 MG/2 ML VIAL SLOW IVP SCH ×2 (05:01→13:07)
[2017-04-28 05:04] LABS: Hemoglobin 9.3 g/dL (14.0-18.0); MDiff Complete? YES; Mean Corpuscular HGB CONC 30.2 g/dL (32.0-36.0); Mean Corpuscular Hemoglobin 26.9 pg (27.0-31.0); Mean Corpuscular Volume 89.2 fl (80.0-94.0); Mean Platelet Volume 8.1 fL (7.4-10.4); Platelet Count 175 thou/uL (130-400); Red Blood Cell (RBC) Count 3.46 mill/uL (4.70-6.10); White Blood Cell (WBC) Count 13.2 thou/uL (4.8-10.8)
[2017-04-28 05:05] LABS: Band 5 % (5-11); Lymphocytes 17 % (21-51); Monocytes 2 % (0-10); Neutrophil 76 % (42-75)
[2017-04-28] MEDS: Cefepime 2 GM in Syringe 12.5 ML SLOW IVP SCH ×2 (08:04→21:12)
[2017-04-28] MEDS: Enoxaparin Sodium 60 MG/0.6 ML SYRINGE SC SCH ×2 (08:05→21:12)
[2017-04-28] MEDS: Pantoprazole 40 MG VIAL IVP SCH (08:05)
[2017-04-28] MEDS: Morphine 2 MG/ML SYRINGE SLOW IVP PRN ×3 (08:06→23:10)
--- NOTE | 2017-04-28 09:08 | RAD ---
SINGLE VIEW OF THE CHEST: COMPARISON: 04/27/17. HISTORY: Ventilated patient with respiratory failure. FINDINGS: A single view of the chest shows a normal-size cardiomediastinal silhouette. The lines and tubes are unchanged in position. The pacemaker is unchanged in position. There are small bilateral pleural e ffusions with adjacent atelectasis. No change has occurred compared to the prior exam. IMPRESSION: Stable exam. POS: [facility]
[2017-04-28 09:44] LABS: Vancomycin, Trough 23.7 ug/mL
[2017-04-28] MEDS: Potassium Chloride 20 MEQ TAB PO SCH ×2 (10:29→13:06)
[2017-04-28] MEDS: Sodium Chloride 0.9% 1,000 ML IV SCH (10:34)
[2017-04-28] MEDS: Vancomycin HCl 500 MG in Sodium Chloride 0.9% 100 ML IVPB SCH ×2 (10:34→21:24)
--- NOTE | 2017-04-28 11:34 | PDOC.PN ---
- Subjective Encounter Start Date: 04/28/17 Encounter Start Time: 09:10 -: non-verbal Pt seen and exmained, case discussed with Dr Anderson face to face. Sitting up in a chair position, still intubated. Pn PS, but Vt very small. high risk of re- intubation if extubated. Pleural effusion drained by Dr Anderson yesterday, it is trnasudative no F/c, no diarrhea, no N/V, no BM in days. ROS not obtainable - Objective MAR Reviewed: Yes Vital Signs & Weight: Vital Signs (12 hours) Temp Pulse Resp BP Pulse Ox 04/28/17 11:05 97 135/40 L 04/28/17 11:02 88 24 H 92 L 04/28/17 08:00 99.6 F 105 H 31 H 91 L 04/28/17 06:49 97 131/43 L 04/28/17 06:48 89 28 H 04/28/17 06:00 30 H 04/28/17 04:00 29 H 04/28/17 03:51 73 04/28/17 03:00 98.6 F 04/28/17 02:00 30 H 04/28/17 00:00 27 H Weight Admit Weight 158 lb Weight 150 lb 2.157 oz Most Recent Monitor Data Heart Rate from ECG 96 NIBP 135/40 NIBP BP-Mean 98 Respiration from ECG 28 SpO2 91 I&O: 04/27/17 04/28/17 04/29/17 06:59 06:59 06:59 Intake Total 2768 1617 Output Total 2125 2325 115 Balance 643 -708 -115 Result Diagrams: 04/28/17 04:20 04/28/17 04:20 Radiology Reviewed by me: Yes EKG Reviewed by me: Yes Phys Exam - Physical Examination Constitutional: NAD HEENT: PERRLA, moist MMs, sclera anicteric, oral pharynx no lesions ETT and OGT in place Neck: no nodes, no JVD, supple, full ROM Respiratory: no wheezing, no rales, no rhonchi, clear to auscultation bilateral Cardiovascular: RRR, no significant murmur, no rub Gastrointestinal: soft, non-tender, no distention, positive bowel sounds Musculoskeletal: pulses present, edema present Neurological: non-focal, normal sensation, moves all 4 limbs Lymphatic: no nodes Skin: no rash, normal turgor, cap refill <2 seconds Dx/Plan (1) Acute hypoxemic respiratory failure Code(s): J96.01 - ACUTE RESPIRATORY FAILURE WITH HYPOXIA Status: Acute Comment: intubated on vent, weaning per pulm,. appreciate Dr Anderson's assistance (2) PNA (pneumonia) Code(s): J18.9 - PNEUMONIA, UNSPECIFIED ORGANISM Status: Acute Qualifiers: Pneumonia type: due to unspecified organism Laterality: bilateral Lung location: unspecified part of lung Qualified Code(s): J18.9 - Pneumonia, unspecified organism (3) Sepsis Code(s): A41.9 - SEPSIS, UNSPECIFIED ORGANISM Status: Acute Qualifiers: Sepsis type: sepsis due to unspecified organism Qualified Code(s): A41.9 - Sepsis, unspecified organism (4) COPD (chronic obstructive pulmonary disease) Status: Chronic Qualifiers: COPD type: unspecified COPD Qualified Code(s): J44.9 - Chronic obstructive pulmonary disease, unspecified - Plan cont current plan of care, continue antibiotics, PT/OT, respiratory therapy * .
--- NOTE | 2017-04-28 20:32 | PRG ---
DATE OF SERVICE: 04/28/2017 SUBJECTIVE: Mr. Saji Kasper remains ventilated. His negative inspiratory force is between -29 and -30, minute volume is between 8 and 9 liters a minute. His vital signs have been stable, although wi th his ventilator turned down, his tidal volumes tend to get quite small with pressure support breath s. OBJECTIVE: VITAL SIGNS: He is afebrile, respiratory rate is in the 20s, blood pressure 156/48, oximetries in th e 90s. LUNGS: Remarkable for decreased breath sounds in his right base. HEART: Regular rhythm. ABDOMEN: Soft. LABORATORY DATA: White count 13.2, hemoglobin 9.3, platelets 175. Sodium 142, potassium 3.2, chlori de 102, bicarb 33, BUN 43, creatinine 0.68. IMPRESSION: 1. Respiratory failure associated with pneumonia. 2. Diastolic heart failure with transudative pleural effusion that was tapped on the right yesterday , total of a liter. 3. Recent intubation at [facility]. 4. ? underlying obstructive lung disease. I have reviewed his cultures. He has one out of two blood culture is positive for micrococcus. I berger spect this is a contaminant. His pleural fluid cultures are negative. Chest radiograph was reviewed by me. He still has bilateral effusions, but his right chest is improv ed on radiograph. Blood gas shows little bit of metabolic alkalosis from his diuresis. His pH was 7.5 two days ago. T here was no blood gas done today for some reason. IMPRESSION: Respiratory failure. DISCUSSION: We will decrease ventilatory support today to just barely eliminate tube resistance and then re-evaluate him tomorrow. I am concerned that there were thick secretions were noted yesterday, even though they have improved, it will be difficult to clear. We will reassess him in the morning. Critical care time, 30 minutes.
[2017-04-29] MEDS: Propofol 1,000 MG/100 ML VIAL IV PRN ×3 (01:02→17:17)
[2017-04-29] MEDS: guaiFENesin 200 MG TAB PO SCH ×6 (01:03→19:51)
[2017-04-29 04:34] LABS: Band 2 % (5-11); Eosinophils 3 % (0-10); Hemoglobin 9.2 g/dL (14.0-18.0); Lymphocytes 20 % (21-51); MDiff Complete? YES; Mean Corpuscular HGB CONC 29.8 g/dL (32.0-36.0); Mean Corpuscular Hemoglobin 26.7 pg (27.0-31.0); Mean Corpuscular Volume 89.7 fl (80.0-94.0); Mean Platelet Volume 9.4 fL (7.4-10.4); Monocytes 4 % (0-10); Neutrophil 71 % (42-75); Platelet Count 133 thou/uL (130-400); RBC Distribution Width 18.4 % (11.5-14.5); Red Blood Cell (RBC) Count 3.42 mill/uL (4.70-6.10)
[2017-04-29 05:01] LABS: Anion Gap 9 mmol/L (10-20); BUN (Urea Nitrogen) 45 mg/dL (8.4-25.7); Calc. Creatinine Clearance 103 mL/min (70-130); Calcium 8.3 mg/dL (7.8-10.44); Carbon Dioxide 31 mmol/L (23-31); Chloride 106 mmol/L (98-107); Estimated GFR-MDRD Greater than 90; Glucose 106 mg/dL (83-110); Potassium 3.6 mmol/L (3.5-5.1); Sodium 142 mmol/L (136-145)
[2017-04-29] MEDS: Furosemide 20 MG/2 ML VIAL SLOW IVP SCH ×2 (05:15→13:51)
[2017-04-29] MEDS: Sodium Chloride 0.9% 1,000 ML IV SCH (06:19)
[2017-04-29] MEDS ORDERED: Bisacodyl 10 MG SUPP PR PRN (08:10)
--- NOTE | 2017-04-29 08:26 | RAD ---
SINGLE VIEW OF THE CHEST: COMPARISON: 04/28/17. HISTORY: Ventilated patient with respiratory failure. FINDINGS: A single view of the chest shows an enlarged but stable cardiomediastinal silhouette. The pacemaker is unchanged in position. The lines and tubes are unchanged in position. There is a veil-like opaci ty in the left thorax which likely represents a small layering pleural effusion. IMPRESSION: Small left pleural effusion. POS: [facility]
[2017-04-29] MEDS ORDERED: Polyethylene Glycol 3350 17 GM Packet PO SCH (09:00)
[2017-04-29] MEDS: Enoxaparin Sodium 60 MG/0.6 ML SYRINGE SC SCH ×2 (10:01→19:50)
[2017-04-29] MEDS: Cefepime 2 GM in Syringe 12.5 ML SLOW IVP SCH ×2 (10:01→19:50)
[2017-04-29] MEDS: Vancomycin HCl 500 MG in Sodium Chloride 0.9% 100 ML IVPB SCH ×2 (10:02→21:38)
[2017-04-29] MEDS: Polyethylene Glycol 3350 17 GM Packet PO SCH (10:02)
[2017-04-29] MEDS: Pantoprazole 40 MG VIAL IVP SCH (10:02)
--- NOTE | 2017-04-29 11:27 | PRG ---
DATE OF SERVICE: 04/29/2017 SUBJECTIVE: He is on 3 of PEEP and 2 of pressure support with a rate of 2. His pressure support emmanuel tilation breaths revealed exhaled tidal volumes of 250 to 270 mL. He has a very weak bedside exam. I am turning up to a rate of 6, pressure support of 10, PEEP of 5. OBJECTIVE: LUNGS: Clear. HEART: Regular rhythm. ABDOMEN: Soft. VITAL SIGNS: Heart rate 87, blood pressure 151/42, respiratory rate in the 30s. LABORATORY DATA: Sodium 142, potassium 3.6, chloride 106, bicarbonate 31, BUN 45, creatinine 0.64. White count 12, hemoglobin 9.2, platelets 133,000. Chest radiograph reviewed by me shows significant improvement in his right lung with small left effus ion. IMPRESSION: 1. Diastolic dysfunction with bilateral pleural effusions. 2. Pneumonia. 3. Weakness and deconditioning. I am going to get a blood gas on the current ventilator settings. PLAN: We will continue slow weaning attempts, but I do not feel he is a candidate for extubation. I believe he will fail within 8 to 12 if he is extubated at this time just because of his muscle weakn ess. Critical care time was 30 minutes.
--- NOTE | 2017-04-29 12:40 | PDOC.PN ---
- Subjective Encounter Start Date: 04/29/17 Encounter Start Time: 08:45 -: non-verbal pt unchanged. awakens on 40 of propofol. on PSV. Small rapid tidal volumes. Case discussed with Dr Anderson and nursing. no F/C, no N/V/d/C, no acute events. - Objective MAR Reviewed: Yes Vital Signs & Weight: Vital Signs (12 hours) Temp Pulse Resp BP Pulse Ox 04/29/17 12:00 26 H 04/29/17 10:52 87 151/42 H 04/29/17 10:51 99 31 H 90 L 04/29/17 10:00 32 H 04/29/17 09:00 99.8 F H 04/29/17 08:00 99.8 F H 102 H 34 H 89 L 04/29/17 06:53 88 151/52 H 04/29/17 06:51 93 26 H 92 L 04/29/17 05:50 24 H 04/29/17 05:00 98.6 F 04/29/17 04:00 25 H 04/29/17 02:40 88 04/29/17 02:00 26 H Weight Admit Weight 158 lb Weight 155 lb 10.342 oz Most Recent Monitor Data Heart Rate from ECG 82 NIBP 155/45 NIBP BP-Mean 93 Respiration from ECG 28 SpO2 90 I&O: 04/28/17 04/29/17 04/30/17 06:59 06:59 06:59 Intake Total 1617 3232 180 Output Total 2325 2100 425 Balance -708 1132 -245 Result Diagrams: 04/29/17 04:00 04/29/17 04:33 Radiology Reviewed by me: Yes EKG Reviewed by me: Yes Phys Exam - Physical Examination Constitutional: NAD HEENT: PERRLA, moist MMs, sclera anicteric, oral pharynx no lesions oral ETT and OGT in place Neck: no nodes, no JVD, supple, full ROM Respiratory: no wheezing, no rales, no rhonchi, clear to auscultation bilateral Cardiovascular: RRR, no significant murmur, no rub Gastrointestinal: soft, non-tender, no distention, positive bowel sounds Musculoskeletal: pulses present, edema present Neurological: non-focal, moves all 4 limbs Lymphatic: no nodes Skin: no rash, normal turgor, cap refill <2 seconds Dx/Plan (1) Acute hypoxemic respiratory failure Code(s): J96.01 - ACUTE RESPIRATORY FAILURE WITH HYPOXIA Status: Acute Comment: intubated on vent, weaning per pulm,. appreciate Dr Anderson's assistance. WOnder if he may need to be trached and weaned chronically (2) PNA (pneumonia) Code(s): J18.9 - PNEUMONIA, UNSPECIFIED ORGANISM Status: Acute Qualifiers: Pneumonia type: due to unspecified organism Laterality: bilateral Lung location: unspecified part of lung Qualified Code(s): J18.9 - Pneumonia, unspecified organism (3) Sepsis Code(s): A41.9 - SEPSIS, UNSPECIFIED ORGANISM Status: Acute Qualifiers: Sepsis type: sepsis due to unspecified organism Qualified Code(s): A41.9 - Sepsis, unspecified organism (4) COPD (chronic obstructive pulmonary disease) Status: Chronic Qualifiers: COPD type: unspecified COPD Qualified Code(s): J44.9 - Chronic obstructive pulmonary disease, unspecified - Plan * .
[2017-04-29] MEDS: Lorazepam 2 MG/ML VIAL SLOW IVP PRN (22:15)
[2017-04-30] MEDS: guaiFENesin 200 MG TAB PO SCH ×6 (01:07→21:24)
[2017-04-30] MEDS: Acetaminophen 500 MG TAB PO PRN (02:44)
[2017-04-30] MEDS: Furosemide 20 MG/2 ML VIAL SLOW IVP SCH ×2 (05:08→14:07)
[2017-04-30 05:30] LABS: Anion Gap 12 mmol/L (10-20); BUN (Urea Nitrogen) 36 mg/dL (8.4-25.7); Calc. Creatinine Clearance 104 mL/min (70-130); Calcium 8.7 mg/dL (7.8-10.44); Carbon Dioxide 29 mmol/L (23-31); Chloride 107 mmol/L (98-107); Estimated GFR-MDRD Greater than 90; Glucose 86 mg/dL (83-110); Potassium 3.2 mmol/L (3.5-5.1); Sodium 145 mmol/L (136-145)
[2017-04-30] MEDS: Sodium Chloride 0.9% 1,000 ML IV SCH ×2 (05:31→21:56)
[2017-04-30 06:28] LABS: Hemoglobin 8.9 g/dL (14.0-18.0); Mean Corpuscular HGB CONC 30.6 g/dL (32.0-36.0); Mean Corpuscular Hemoglobin 27.7 pg (27.0-31.0); Mean Corpuscular Volume 90.7 fl (80.0-94.0); Platelet Count 133 thou/uL (130-400); RBC Distribution Width 18.2 % (11.5-14.5); White Blood Cell (WBC) Count 9.7 thou/uL (4.8-10.8)
[2017-04-30 06:48] LABS: Band 7 % (5-11); Eosinophils 4 % (0-10); Lymphocytes 14 % (21-51); MDiff Complete? YES; Monocytes 3 % (0-10); Neutrophil 72 % (42-75)
[2017-04-30 07:16] LABS: Actual Bicarbonate (HCO3a) 31.6 mEq/L (22-26); Base Excess (BEa) 6.5 mEq/L (0 (+/-) 2.5); CO2 Tension 48.7 mmHg (35.0-45.0); Hematocrit-ABG 27.8 % (42.0-52.0); Hemoglobin (Hb) 8.7 g/dL (14.0-18.0); O2 Tension (PaO2) 63.7 mmHg (80.0-100.0); pH, Arterial 7.43 (7.35-7.45)
[2017-04-30 07:17] LABS: ALV-art Gradient 123.225 (0-20); Analyzer IN Cardio ER; Calcium, Ionized 1.2 mmol/L (1.12-1.30); Puncture Site RR
[2017-04-30] MEDS: Polyethylene Glycol 3350 17 GM Packet PO SCH (08:01)
[2017-04-30] MEDS: Scopolamine 1.5 mg/72 hour Patch TD SCH (08:13)
[2017-04-30] MEDS: Pantoprazole 40 MG VIAL IVP SCH (08:16)
[2017-04-30] MEDS: Enoxaparin Sodium 60 MG/0.6 ML SYRINGE SC SCH ×2 (08:16→21:29)
[2017-04-30] MEDS: Cefepime 2 GM in Syringe 12.5 ML SLOW IVP SCH ×2 (08:58→21:29)
[2017-04-30] MEDS: Vancomycin HCl 500 MG in Sodium Chloride 0.9% 100 ML IVPB SCH ×2 (09:53→21:56)
--- NOTE | 2017-04-30 10:17 | RAD ---
AP VIEW OF CHEST: Date: 04/30/17 INDICATION: History of intubation. COMPARISON: Prior exam dated 04/29/17. FINDINGS: The patient remains intubated with associated gastric catheter. Cardiomegaly and pulmonary vascular c ongestion persists. The extent of the central edema pattern seen from the comparison exam has improve d. There is persistent small bilateral pleural effusion. No pneumothorax is evident. Chronic osseous changes are similar. Dual lead pacemaker is unchanged. IMPRESSION: Some improvement in the central perihilar edema. Persistent cardiomegaly, pulmonary vascular congesti on, and small bilateral pleural effusions. Continued follow-up is recommended. POS: [facility]
[2017-04-30] MEDS ORDERED: Potassium Chloride 40 MEQ in Sodium Chloride 0.9% 250 ML 250 ML IVPB SCH (12:45)
--- NOTE | 2017-04-30 13:37 | PRG ---
DATE OF SERVICE: 04/30/2017 Saji Kasper was sitting in a chair. His negative inspiratory force was excellent this morning. PHYSICAL EXAMINATION: VITAL SIGNS: His vital signs have been stable, his temperature is 99, heart rate 96, blood pressure 153/42. LUNGS: His lungs are clear. HEART: Regular rhythm. ABDOMEN: Abdomen is soft. His minute volume was less than 10 liters a minute. He passed a leak test. It was felt he was a candidate for extubation. This has been done successful ly, he is in no distress. He will be kept in the Critical Care Unit. LABORATORY: Lab has been reviewed: White count 5.7, hemoglobin 8.9, sodium 133. Sodium 145, potassium 3.2. He has been given 40 mEq of potassium, chloride 107, bicarbonate 29, BUN 36, creatinine 0.6, pH 7.43, CO2 48, pO2 63. IMPRESSION: 1. Pneumonia. 2. Diastolic dysfunction. 3. Respiratory failure with 2 intubations in the last month. PLAN: We will keep in the ICU. Critical care time was 30 minutes.
--- NOTE | 2017-04-30 14:01 | PDOC.PN ---
- Subjective Encounter Start Date: 04/30/17 Encounter Start Time: 14:00 Subjective: Patient successfully extubated this AM, confused, denies complaints - Objective MAR Reviewed: Yes Vital Signs & Weight: Vital Signs (12 hours) Temp Pulse Resp BP Pulse Ox 04/30/17 11:00 99.2 F 04/30/17 10:52 96 21 H 100 04/30/17 08:00 99.4 F 96 21 H 97 04/30/17 07:48 92 180/61 H 04/30/17 07:00 99.4 F 04/30/17 06:48 87 29 H 97 04/30/17 06:00 28 H 04/30/17 04:00 32 H 04/30/17 03:00 100.0 F H 04/30/17 02:50 77 04/30/17 02:00 30 H Weight Admit Weight 158 lb Weight 157 lb 3.033 oz Most Recent Monitor Data Heart Rate from ECG 100 NIBP 167/51 NIBP BP-Mean 109 Respiration from ECG 28 SpO2 97 I&O: 04/29/17 04/30/17 05/01/17 06:59 06:59 06:59 Intake Total 3232 3721.7 385 Output Total 2100 2320 715 Balance 1132 1401.7 -330 Result Diagrams: 04/30/17 04:36 04/30/17 04:36 Phys Exam - Physical Examination Constitutional: NAD HEENT: moist MMs Respiratory: no wheezing, no rales, no rhonchi, clear to auscultation bilateral Cardiovascular: RRR Gastrointestinal: soft, positive bowel sounds Neurological: non-focal, moves all 4 limbs Psychiatric: normal affect Deviation from normal: oriented to person, otherwise confused Dx/Plan (1) Acute hypoxemic respiratory failure Code(s): J96.01 - ACUTE RESPIRATORY FAILURE WITH HYPOXIA Status: Acute Comment: successfully extubated (2) PNA (pneumonia) Code(s): J18.9 - PNEUMONIA, UNSPECIFIED ORGANISM Status: Acute Qualifiers: Pneumonia type: due to unspecified organism Laterality: bilateral Lung location: unspecified part of lung Qualified Code(s): J18.9 - Pneumonia, unspecified organism (3) COPD (chronic obstructive pulmonary disease) Status: Chronic Qualifiers: COPD type: unspecified COPD Qualified Code(s): J44.9 - Chronic obstructive pulmonary disease, unspecified (4) Aortic stenosis, moderate Code(s): I35.0 - NONRHEUMATIC AORTIC (VALVE) STENOSIS Status: Chronic (5) Acute on chronic diastolic (congestive) heart failure Code(s): I50.33 - ACUTE ON CHRONIC DIASTOLIC (CONGESTIVE) HEART FAILURE Status : Acute (6) Coronary artery disease Code(s): I25.10 - ATHSCL HEART DISEASE OF [place] CORONARY ARTERY W/O ANG PCTRS Status: Chronic Comment: with NSTEMI due to demand ischemia - Plan cont current plan of care, continue antibiotics, DVT proph w/lovenox * . - Discharge Day Encounter end time: 14:20
[2017-04-30 21:39] LABS: Vancomycin, Trough 18.8 ug/mL
[2017-05-01 04:37] LABS: Band 6 % (5-11); Eosinophils 2 % (0-10); Hemoglobin 9.3 g/dL (14.0-18.0); Lymphocytes 11 % (21-51); MDiff Complete? YES; Mean Corpuscular HGB CONC 30.7 g/dL (32.0-36.0); Mean Corpuscular Hemoglobin 27.7 pg (27.0-31.0); Mean Corpuscular Volume 90.2 fl (80.0-94.0); Monocytes 2 % (0-10); Neutrophil 79 % (42-75); Platelet Count 163 thou/uL (130-400); RBC Distribution Width 18.1 % (11.5-14.5); Red Blood Cell (RBC) Count 3.35 mill/uL (4.70-6.10); White Blood Cell (WBC) Count 12.3 thou/uL (4.8-10.8)
[2017-05-01 04:43] LABS: Anion Gap 12 mmol/L (10-20); BUN (Urea Nitrogen) 28 mg/dL (8.4-25.7); Calc. Creatinine Clearance 109 mL/min (70-130); Calcium 9.1 mg/dL (7.8-10.44); Carbon Dioxide 29 mmol/L (23-31); Chloride 109 mmol/L (98-107); Estimated GFR-MDRD Greater than 90; Glucose 73 mg/dL (83-110); Potassium 3.2 mmol/L (3.5-5.1); Sodium 147 mmol/L (136-145)
[2017-05-01] MEDS: guaiFENesin 200 MG TAB PO SCH ×5 (04:56→21:08)
[2017-05-01] MEDS ORDERED: Midazolam HCl 2 mg/2 ml Vial ONE (05:36)
--- NOTE | 2017-05-01 06:04 | PDOC.EVN ---
Event Note - Event Note Event Note: Code blue note. Code announced around 0530. On arrival a few minutes later, pt had Defibrillator pad on chest. Was in Vfib and shocked back into sinus tachycardia. Pt with agonal breathing, and i reintubated him, please see separate note. CXR obtained, pulm edema, wet breath sounds. CBC, CMP, Mag, and cardiac profile ordered, IV fluids stopped. Pt placed back on sedation protocol and electrolyte replacement for slightly low potassium 35 minutes spent at the bedside performing critical care
--- NOTE | 2017-05-01 06:09 | PDOC.OP ---
Operative Note - Operative Note Operative Note: Procedure: endotracheal intubation Indication: agonal breathing, code sun, s/p Vfib arrest and cardioversion Consent: implied due to emergency Call Centre Supervisor: Domingo tuttle M.D. Date: 05/01/2017 Time: 0535 Description: tavia Cox pt founf in agonal respiration post cardioversion. 7.5 ETT with stylet and Mac 3 blade prepared by RT. 20mg Etomidate and 5 Versed drawn up by nursing. Pt bagged until SpO2 100%. Meds pushed by nursing. When effective, Mac 3 blade inserted, thick mucous seen at back of throat. Under direct visualization, ETT placed, but capnograph neg and stomach began to inflate. Balloon emptied and tube removed. Rebagged form 93 to 97% SpO2. Second attmept made. Vocal cords cirectly visualized and tube inserted to 24cm at the lips. Capnograph instantly turned gold. CXR verified good palcement, secured and connected to ventilator. Pt pablo procedure well EBL: none Complications: none apparentl
[2017-05-01] MEDS ORDERED: Magnesium 2 GM/NS 0.9% 100 ML 2 GM in Premix Bag 1 BAG IVPB PRN (06:36)
[2017-05-01] MEDS ORDERED: Potassium Chloride 20 MEQ TAB PO PRN (06:36)
[2017-05-01] MEDS ORDERED: Magnesium Oxide 400 MG TAB PO PRN ×2 (06:36)
[2017-05-01] MEDS ORDERED: Potassium Phosphate 12 MMOL in Sodium Chloride 0.9% 250 ML 250 ML IV PRN (06:36)
[2017-05-01] MEDS ORDERED: Potassium Phosphate 15 MMOL in Sodium Chloride 0.9% 250 ML 250 ML IV PRN (06:36)
[2017-05-01] MEDS ORDERED: Potassium Phosphate 9 MMOL in Sodium Chloride 0.9% 100 ML IVPB PRN (06:36)
[2017-05-01] MEDS ORDERED: Potassium Chloride 40 MEQ in Premix Bag 1 BAG IVPB PRN (06:36)
[2017-05-01 06:51] LABS: #Eosinphils 0.3 thou/uL (0.0-0.7); #Lymphocytes 2.3 thou/uL (1.20-3.40); #Monocytes 1.1 thou/uL (0.11-0.59); #Neutrophils 15.9 thou/uL (1.40-6.50); %Basophils 0.2 % (0.0-1.0); %Eosinophils 1.3 % (0.0-10.0); %Lymphocytes 11.5 % (21.0-51.0); %Monocytes 5.6 % (0.0-10.0); %Neutrophils 81.3 % (42.0-75.0); Hemoglobin 9.6 g/dL (14.0-18.0); Mean Corpuscular HGB CONC 30.3 g/dL (32.0-36.0); Mean Corpuscular Hemoglobin 27.5 pg (27.0-31.0); Mean Corpuscular Volume 90.7 fl (80.0-94.0); Mean Platelet Volume 8.8 fL (7.4-10.4); Platelet Count 183 thou/uL (130-400); RBC Distribution Width 18.3 % (11.5-14.5); Red Blood Cell (RBC) Count 3.48 mill/uL (4.70-6.10); White Blood Cell (WBC) Count 19.6 thou/uL (4.8-10.8)
[2017-05-01] MEDS: Furosemide 20 MG/2 ML VIAL SLOW IVP SCH ×2 (06:51→14:32)
[2017-05-01 06:57] LABS: Actual Bicarbonate (HCO3a) 29.1 mEq/L (22-26); Base Excess (BEa) 3.7 mEq/L (0 (+/-) 2.5); CO2 Tension 48.9 mmHg (35.0-45.0); Hematocrit-ABG 25.5 % (42.0-52.0); Hemoglobin (Hb) 8.3 g/dL (14.0-18.0); O2 Tension (PaO2) 251.8 mmHg (80.0-100.0); pH, Arterial 7.39 (7.35-7.45)
[2017-05-01 06:59] LABS: ALV-art Gradient 395.075 (0-20); Calcium, Ionized 1.3 mmol/L (1.12-1.30); Puncture Site RR
[2017-05-01 07:05] LABS: ALT (SGPT) 46 U/L (8-55); AST (SGOT) 66 U/L (5-34); Albumin 2.9 g/dL (3.4-4.8); Alkaline Phosphatase 49 U/L (40-150); Anion Gap 17 mmol/L (10-20); BUN (Urea Nitrogen) 27 mg/dL (8.4-25.7); Bilirubin, Total 0.7 mg/dL (0.2-1.2); Calc. Creatinine Clearance 102 mL/min (70-130); Calcium 8.5 mg/dL (7.8-10.44); Carbon Dioxide 24 mmol/L (23-31); Chloride 111 mmol/L (98-107); Estimated GFR-MDRD Greater than 90; Glucose 96 mg/dL (83-110); Potassium 3.6 mmol/L (3.5-5.1); Protein, Total 4.9 g/dL (5.8-8.1); Sodium 148 mmol/L (136-145)
[2017-05-01 07:11] LABS: CKMB 4.3 ng/mL (0-6.6); Troponin I 0.164 ng/mL (< 0.028)
--- NOTE | 2017-05-01 09:37 | RAD ---
AP CHEST: History: Intubation. Date: 05-01-17 Comparison: 04-30-17 FINDINGS: Endotracheal tube is good position. There are defibrillating pads over the left mid and left lung bas e. Intracardiac pacing leads in place. Calcification of the aorta is seen. There is a veiling density in the right lung base compatible with a right sided pleural effusion. Pulmonary vascular congestion is seen. There is extensive perihilar lung parenchymal lung space opacities concerning for pulmonary edema or ARDS. IMPRESSION: 1. Intubated patient with diffuse bilateral airspace opacities. 2. Exam is limited due to external radiopaque foreign bodies. POS: [facility]
[2017-05-01] MEDS: Vancomycin HCl 500 MG in Sodium Chloride 0.9% 100 ML IVPB SCH ×2 (09:41→21:45)
[2017-05-01] MEDS: Enoxaparin Sodium 60 MG/0.6 ML SYRINGE SC SCH ×2 (09:41→20:10)
[2017-05-01] MEDS: Cefepime 2 GM in Syringe 12.5 ML SLOW IVP SCH ×2 (09:41→21:08)
[2017-05-01] MEDS: Polyethylene Glycol 3350 17 GM Packet PO SCH (09:42)
--- NOTE | 2017-05-01 10:38 | PRG ---
DATE OF SERVICE: 05/01/2017 SUBJECTIVE: Mr. Kasper is intubated on the ventilator. REVIEW OF SYSTEMS: Not obtainable. PHYSICAL EXAMINATION: VITAL SIGNS: Blood pressure 113/38, pulse is 70-80 with atrial fibrillation. LUNGS: Clear. CARDIAC: Irregular. ABDOMEN: Soft and nontender. ASSESSMENT: 1. Respiratory failure. 2. Coronary artery disease. 3. Diastolic heart failure. 4. Atrial fibrillation. PLAN: 1. Continue intravenous furosemide. 2. Continue antibiotics. 3. Continue enoxaparin. 4. Prognosis is guarded. 5. Continue supportive care.
[2017-05-01] MEDS: Propofol 1,000 MG/100 ML VIAL IV PRN ×2 (10:56→20:10)
--- NOTE | 2017-05-01 11:59 | PDOC.PN ---
- Subjective Encounter Start Date: 05/01/17 Encounter Start Time: 13:30 -: non-verbal Subjective: Intubated, sedated - Objective MAR Reviewed: Yes Vital Signs & Weight: Vital Signs (12 hours) Temp Pulse Resp BP Pulse Ox 05/01/17 11:17 77 105/29 L 05/01/17 10:00 16 05/01/17 08:00 99.4 F 05/01/17 07:23 76 136/48 L 05/01/17 07:00 99.4 F 05/01/17 04:00 98.9 F 05/01/17 03:04 96 05/01/17 00:00 98.5 F Weight Admit Weight 158 lb Weight 161 lb 9.581 oz Most Recent Monitor Data Heart Rate from ECG 81 NIBP 134/33 NIBP BP-Mean 76 Respiration from ECG 21 SpO2 98 I&O: 04/30/17 05/01/17 05/02/17 06:59 06:59 06:59 Intake Total 3721.7 1117 Output Total 2320 3335 855 Balance 1401.7 -948 -855 Result Diagrams: 05/01/17 06:51 05/01/17 06:44 Phys Exam - Physical Examination intubated, sedated HEENT: moist MMs Respiratory: no wheezing, no rales, no rhonchi Cardiovascular: irregular Gastrointestinal: soft, positive bowel sounds Musculoskeletal: no edema Psychiatric: normal affect, A&O x 3 Dx/Plan (1) Acute hypoxemic respiratory failure Code(s): J96.01 - ACUTE RESPIRATORY FAILURE WITH HYPOXIA Status: Acute Comment: Reintubated after code last night (2) PNA (pneumonia) Code(s): J18.9 - PNEUMONIA, UNSPECIFIED ORGANISM Status: Acute Qualifiers: Pneumonia type: due to unspecified organism Laterality: bilateral Lung location: unspecified part of lung Qualified Code(s): J18.9 - Pneumonia, unspecified organism (3) COPD (chronic obstructive pulmonary disease) Status: Chronic Qualifiers: COPD type: unspecified COPD Qualified Code(s): J44.9 - Chronic obstructive pulmonary disease, unspecified (4) Aortic stenosis, moderate Code(s): I35.0 - NONRHEUMATIC AORTIC (VALVE) STENOSIS Status: Chronic (5) Acute on chronic diastolic (congestive) heart failure Code(s): I50.33 - ACUTE ON CHRONIC DIASTOLIC (CONGESTIVE) HEART FAILURE Status : Acute (6) Coronary artery disease Code(s): I25.10 - ATHSCL HEART DISEASE OF [place] CORONARY ARTERY W/O ANG PCTRS Status: Chronic Comment: with NSTEMI due to demand ischemia (7) Cardiac arrest Code(s): I46.9 - CARDIAC ARREST, CAUSE UNSPECIFIED Status: Acute Comment: V- fib overnight, converted with defibrilation - Plan cont current plan of care, respiratory therapy * . - Discharge Day Encounter end time: 13:45
[2017-05-01 12:43] LABS: Troponin I 0.347 ng/mL (< 0.028)
--- NOTE | 2017-05-01 23:49 | PRG ---
DATE OF SERVICE: 05/01/2017 SUBJECTIVE: Mr. Saji Kasper apparently had V-fib last night. He was not in a lot of distress prior to the V-fib. He was cardioverted and intubated. He is mechanically ventilated. I met with his and answered all of her questions. OBJECTIVE: VITAL SIGNS: Have been stable today. He has had no more ventricular arrhythmias. Heart rate 79, respiratory rate 16, oximetry is 99% and blood pressure 151/55. LUNGS: Clear. HEART: Regular rhythm. ABDOMEN: Soft. LABORATORY DATA: White count 19.6, hemoglobin 9.6 and platelets 183,000. Sodium 148, potassium 3.6, chloride 111, bicarb 24, BUN 27 and creatinine 0.63. IMPRESSION: 1. Diastolic dysfunction. 2. Pulmonary edema, post-code. 3. Pleural effusion that was transudative. 4. Pneumonia on presentation leading to mechanical ventilation. 5. Recent intubation at [facility]. PLAN: Continue supportive care. I met with the and answered all of her questions. There is no acid-base disorder. PH 7.39, CO2 of 48, pO2 of 251 this morning. CRITICAL CARE TIME: 30 minutes. TOLU
[2017-05-02] MEDS: guaiFENesin 200 MG TAB PO SCH ×6 (01:58→20:17)
[2017-05-02] MEDS: Propofol 1,000 MG/100 ML VIAL IV PRN ×4 (01:59→22:38)
[2017-05-02 04:24] LABS: Anion Gap 13 mmol/L (10-20); BUN (Urea Nitrogen) 29 mg/dL (8.4-25.7); Calc. Creatinine Clearance 90 mL/min (70-130); Calcium 8.7 mg/dL (7.8-10.44); Carbon Dioxide 29 mmol/L (23-31); Chloride 110 mmol/L (98-107); Estimated GFR-MDRD Greater than 90; Glucose 67 mg/dL (83-110); Sodium 149 mmol/L (136-145)
[2017-05-02 04:27] LABS: Potassium 2.6 mmol/L (3.5-5.1)
[2017-05-02 05:02] LABS: Band 13 % (5-11); Eosinophils 1 % (0-10); Hemoglobin 8.3 g/dL (14.0-18.0); Lymphocytes 22 % (21-51); MDiff Complete? YES; Mean Corpuscular HGB CONC 30.9 g/dL (32.0-36.0); Mean Corpuscular Hemoglobin 27.5 pg (27.0-31.0); Mean Platelet Volume 8.9 fL (7.4-10.4); Monocytes 1 % (0-10); Neutrophil 63 % (42-75); Platelet Count 143 thou/uL (130-400); RBC Distribution Width 18.4 % (11.5-14.5); Red Blood Cell (RBC) Count 3.02 mill/uL (4.70-6.10); White Blood Cell (WBC) Count 8.8 thou/uL (4.8-10.8)
[2017-05-02] MEDS: Potassium Chloride 40 MEQ in Sodium Chloride 0.9% 250 ML 250 ML IVPB PRN ×2 (05:02→12:08)
[2017-05-02] MEDS: Furosemide 20 MG/2 ML VIAL SLOW IVP SCH ×2 (06:15→15:03)
[2017-05-02 07:19] LABS: Actual Bicarbonate (HCO3a) 27.3 mEq/L (22-26); Base Excess (BEa) 4.3 mEq/L (0 (+/-) 2.5); CO2 Tension 34.1 mmHg (35.0-45.0); Hematocrit-ABG 23.8 % (42.0-52.0); Hemoglobin (Hb) 8.2 g/dL (14.0-18.0); pH, Arterial 7.52 (7.35-7.45)
[2017-05-02 07:20] LABS: ALV-art Gradient 106.775 (0-20); Calcium, Ionized 1.2 mmol/L (1.12-1.30); Puncture Site RR
[2017-05-02 10:08] LABS: Potassium 2.9 mmol/L (3.5-5.1)
--- NOTE | 2017-05-02 10:16 | PRG ---
DATE OF SERVICE: 05/02/2017 Mr. Kasper is intubated on the ventilator. The patient did suffer a cardiac arrest yesterday after he had an episode of ventricular fibrillation and was successfully defibrillated. The patient had agonal breathing. PHYSICAL EXAMINATION: GENERAL: Currently on exam he is intubated and is awake. VITAL SIGNS: Blood pressure 132/45, pulse is 85-98, atrial fibrillation. LUNGS: Clear. CARDIAC: Irregular, irregular. ASSESSMENT: 1. Episode of sustained ventricular tachycardia this morning. 2. Episode of ventricular fibrillation yesterday. 3. Anemia. 4. Respiratory failure. 5. Coronary artery disease. 6. Hypokalemia, potassium 2.6. PLAN: 1. Replete potassium. 2. Prognosis is very guarded to poor in this gentleman. Continue supportive care for now. 3. He also has mild to moderate aortic stenosis.
[2017-05-02] MEDS: Enoxaparin Sodium 60 MG/0.6 ML SYRINGE SC SCH ×2 (11:11→20:26)
[2017-05-02] MEDS: Polyethylene Glycol 3350 17 GM Packet PO SCH (11:11)
[2017-05-02] MEDS: Cefepime 2 GM in Syringe 12.5 ML SLOW IVP SCH ×2 (11:12→20:17)
[2017-05-02] MEDS: Vancomycin HCl 500 MG in Sodium Chloride 0.9% 100 ML IVPB SCH ×2 (11:12→22:33)
--- NOTE | 2017-05-02 12:02 | PDOC.PN ---
- Subjective Encounter Start Date: 05/02/17 Encounter Start Time: 09:40 -: old records requested/rev pt is intubated , awake on vent Patient seen and examined. No overnight events - Objective MAR Reviewed: Yes Vital Signs & Weight: Vital Signs (12 hours) Temp Pulse Resp BP Pulse Ox 05/02/17 11:07 73 114/37 L 05/02/17 10:00 16 05/02/17 08:00 16 05/02/17 07:55 85 132/45 L 05/02/17 07:00 99.7 F H 05/02/17 06:00 20 05/02/17 04:00 98.8 F 16 05/02/17 03:01 80 16 100 05/02/17 02:00 20 Weight Admit Weight 158 lb Weight 152 lb 5.431 oz Most Recent Monitor Data Heart Rate from ECG 73 NIBP 114/37 NIBP BP-Mean 73 Respiration from ECG 16 SpO2 95 I&O: 05/01/17 05/02/17 05/03/17 06:59 06:59 06:59 Intake Total 1117 647 Output Total 7783 0390 750 Balance -948 -1893 -750 Result Diagrams: 05/02/17 03:55 05/02/17 09:25 Additional Labs: Accuchecks 05/02/17 07:25 POC Glucose 73 Radiology Reviewed by me: Yes (chest xray) EKG Reviewed by me: Yes (nsr) Phys Exam - Physical Examination Constitutional: NAD intubated HEENT: PERRLA, sclera anicteric Neck: no JVD, supple Respiratory: no wheezing, no rales, no rhonchi Cardiovascular: RRR, no rub SM+ Gastrointestinal: soft, no distention, positive bowel sounds Musculoskeletal: no edema, pulses present scd+, diaz+ Skin: no rash, normal turgor Dx/Plan (1) Acute hypoxemic respiratory failure Code(s): J96.01 - ACUTE RESPIRATORY FAILURE WITH HYPOXIA Status: Acute Comment: intubated (2) Acute on chronic diastolic (congestive) heart failure Code(s): I50.33 - ACUTE ON CHRONIC DIASTOLIC (CONGESTIVE) HEART FAILURE Status : Acute (3) Cardiac arrest Code(s): I46.9 - CARDIAC ARREST, CAUSE UNSPECIFIED Status: Acute Comment: V- fib , converted with defibrilation (4) Demand ischemia of myocardium Code(s): I24.8 - OTHER FORMS OF ACUTE ISCHEMIC HEART DISEASE Status: Acute (5) Hypokalemia Code(s): E87.6 - HYPOKALEMIA Status: Acute (6) PNA (pneumonia) Code(s): J18.9 - PNEUMONIA, UNSPECIFIED ORGANISM Status: Acute Qualifiers: Pneumonia type: due to unspecified organism Laterality: bilateral Lung location: unspecified part of lung Qualified Code(s): J18.9 - Pneumonia, unspecified organism (7) Pleural effusion Code(s): J90 - PLEURAL EFFUSION, NOT ELSEWHERE CLASSIFIED Status: Acute (8) Sepsis with acute organ dysfunction Code(s): A41.9 - SEPSIS, UNSPECIFIED ORGANISM; R65.20 - SEVERE SEPSIS WITHOUT SEPTIC SHOCK Status: Acute (9) Anemia, normocytic normochromic Code(s): D64.9 - ANEMIA, UNSPECIFIED Status: Chronic (10) Aortic stenosis, moderate Code(s): I35.0 - NONRHEUMATIC AORTIC (VALVE) STENOSIS Status: Chronic (11) COPD (chronic obstructive pulmonary disease) Status: Chronic Qualifiers: COPD type: unspecified COPD Qualified Code(s): J44.9 - Chronic obstructive pulmonary disease, unspecified (12) Coronary artery disease Code(s): I25.10 - ATHSCL HEART DISEASE OF [place] CORONARY ARTERY W/O ANG PCTRS Status: Chronic Comment: with NSTEMI due to demand ischemia - Plan cont current plan of care, continue antibiotics, respiratory therapy * vent as per pulmonary * medication reviewed as below * symptomatic treatment. * continue cefepime and vancomycin * monitor in CCU Review of Systems - Review of Systems Other: unable to review due to intubated status - Medications/Allergies Allergies/Adverse Reactions: Allergies Allergy/AdvReac Type Severity Reaction Status Date / Time No Known Drug Allergies Allergy Unverified 04/23/17 03:39 Medications: Current Medications Acetaminophen (Tylenol) 500 mg PO Q6H PRN PRN Reason: Headache/Fever or Pain Last Admin: 04/30/17 02:44 Dose: 500 mg Albuterol/Ipratropium (Duoneb) 3 ml NEB [id number] LIZ Last Admin: 05/02/17 11:07 Dose: 3 ml Bisacodyl (Dulcolax) 10 mg SD DAILYPRN PRN PRN Reason: Constipation Enoxaparin Sodium (Lovenox) 60 mg SC 0900,2100 [facility] Last Admin: 05/02/17 11:11 Dose: 60 mg Furosemide (Lasix) 20 mg SLOW IVP 0600,1400 [facility] Last Admin: 05/02/17 06:15 Dose: 20 mg Guaifenesin (Organ-I Nr) 400 mg PO Q4H [facility] Last Admin: 05/02/17 11:12 Dose: 400 mg Cefepime HCl 2 gm/ Syringe 12.5 mls @ 150 mls/hr SLOW IVP Q12HR [facility] Last Admin: 05/02/17 11:12 Dose: 12.5 mls Fentanyl Citrate 2,000 mcg/ (Sodium Chloride) 100 mls @ 0 mls/hr IV INF [facility]; Per Protocol PRN Reason: Protocol Stop: 05/23/17 09:48 Fentanyl Citrate (Fentanyl Bolus) 250 mls @ 0 mls/hr IVPB PRN PRN; As Directed PRN Reason: Breakthrough pain Stop: 05/23/17 09:48 Vancomycin HCl 500 mg/ Sodium (Chloride) 100 mls @ 100 mls/hr IVPB 1000,2200 [facility] Last Admin: 05/02/17 11:12 Dose: 100 mls Potassium Chloride 40 meq/ (Sodium Chloride) 270 mls @ 135 mls/hr IVPB ASDIR PRN PRN Reason: FOR SERUM K+ 2.5 - 3.5 Last Admin: 05/02/17 05:02 Dose: 270 mls Potassium Chloride 40 meq/ (Device) 100 mls @ 50 mls/hr IVPB ASDIR PRN PRN Reason: FOR SERUM K+ 2.5 - 3.5 Magnesium Sulfate 1 gm/ Sodium (Chloride) 102 mls @ 102 mls/hr IV PRN PRN PRN Reason: MAG LEVEL 1.4 - 2.0 Magnesium Sulfate 2 gm/ Device 100 mls @ 100 mls/hr IVPB ASDIR PRN PRN Reason: MAGNESIUM < 1.4 Potassium Phosphate 9 mmol/ (Sodium Chloride) 103 mls @ 25.75 mls/hr IVPB ASDIR PRN PRN Reason: Phosphate 1.0-1.8 Potassium Phosphate 12 mmol/ (Sodium Chloride) 254 mls @ 63.5 mls/hr IV ASDIR PRN PRN Reason: Serum phosphate 0.5-0.9 Potassium Phosphate 15 mmol/ (Sodium Chloride) 255 mls @ 63.75 mls/hr IV ASDIR PRN PRN Reason: Serum Phos < 0.5 Lorazepam (Ativan) 2 mg SLOW IVP Q2H PRN PRN Reason: Anxiety to achieve Mckeon 2-3 Stop: 05/23/17 09:48 Last Admin: 04/29/17 22:15 Dose: 2 mg Magnesium Oxide (Magnesium Oxide) 400 mg PO BIDPRN PRN PRN Reason: FOR SERUM MAG 1.4 - 2.0 Magnesium Oxide (Magnesium Oxide) 800 mg PO PRN PRN PRN Reason: FOR SERUM MAG < 1.4 Methylprednisolone Sodium Succinate (Solu-Medrol) 40 mg IVP DAILY [facility] Last Admin: 05/02/17 11:11 Dose: 40 mg Miscellaneous Medication (Phos-Nak) 1 pkt PO TIDPRN PRN PRN Reason: FOR PHOS LEVEL 1.0 - 1.8 Miscellaneous Medication (Phos-Nak) 2 pkt PO TIDPRN PRN PRN Reason: FOR PHOS LEVEL 0.5 - 1.0 Morphine Sulfate (Morphine) 2 mg SLOW IVP Q2H PRN PRN Reason: Breakthrough pain Stop: 05/23/17 09:48 Last Admin: 04/28/17 23:10 Dose: 2 mg Pantoprazole Sodium (Protonix) 40 mg PO DAILY [facility] Polyethylene Glycol (Miralax) 17 gm PO DAILY [facility] Last Admin: 05/02/17 11:11 Dose: 17 gm Potassium Chloride (K-Dur) 40 meq PO ASDIR PRN PRN Reason: FOR SERUM K+ 2.5 - 3.5 Potassium Chloride (Klor-Con) 40 meq PER TUBE ASDIR PRN PRN Reason: FOR SERUM K+ 2.5-3.5 Propofol (Diprivan) 1,000 mg IV INF PRN; Protocol PRN Reason: TO ACHIEVE MCKEON SCORE 2-3 Stop: 05/23/17 09:48 Last Admin: 05/02/17 09:00 Dose: 1,000 mg Scopolamine (Transderm Scop) 1.5 mg TD Q3D [facility] Last Admin: 04/30/17 08:13 Dose: 1.5 mg Sodium Chloride (Flush - Normal Saline) 10 ml IVF Q12HR [facility] Last Admin: 05/02/17 11:12 Dose: 10 ml Sodium Chloride (Flush - Normal Saline) 10 ml IVF PRN PRN PRN Reason: Saline Flush
[2017-05-02] MEDS ORDERED: HumaLOG 300 UNITS/3 ML VIAL SC PRN (12:45)
[2017-05-02] MEDS ORDERED: Dextrose 50% Abboject 50 ML SYRINGE SLOW IVP PRN (12:45)
[2017-05-02] MEDS ORDERED: Dextrose 5% in Water 1,000 ML IV PRN (12:45)
[2017-05-02 20:57] LABS: Potassium 3.5 mmol/L (3.5-5.1)
[2017-05-02 21:09] LABS: Vancomycin, Trough 21.5 ug/mL
--- NOTE | 2017-05-02 21:24 | PRG ---
DATE OF SERVICE: 05/02/2017 SUBJECTIVE: Saji Kasper remains mechanically ventilated. He would awaken this morning, moved all h is extremities to command. OBJECTIVE: VITAL SIGNS: He is afebrile, heart rate is 71, blood pressure 125/44. LUNGS: Clear. HEART: Regular rhythm. ABDOMEN: Soft. LABORATORY DATA: White count 8.8, hemoglobin 8.3, platelets 143. Sodium 149, potassium 2.6, chloride 110, bicarbonate 29, BUN 29, creatinine 0.67, pH 7.52, CO2 of 34, PO2 of 63. I have turned her IMV down to 10. PLAN: We will check chest x-ray in the morning. Awaiting cardiac disposition with given that he had atrial fibrillation that was not triggered by respiratory muscle fatigue or failure from what I can tell. Unfortunately, he has no signs of anoxic injury. Critical care time was 30 minutes.
[2017-05-03] MEDS: guaiFENesin 200 MG TAB PO SCH ×6 (00:50→20:01)
[2017-05-03] MEDS: Propofol 1,000 MG/100 ML VIAL IV PRN ×4 (03:58→19:52)
[2017-05-03] MEDS: Furosemide 20 MG/2 ML VIAL SLOW IVP SCH (05:02)
[2017-05-03 05:16] LABS: Anion Gap 14 mmol/L (10-20); BUN (Urea Nitrogen) 30 mg/dL (8.4-25.7); Calc. Creatinine Clearance 86 mL/min (70-130); Calcium 8.8 mg/dL (7.8-10.44); Carbon Dioxide 29 mmol/L (23-31); Chloride 112 mmol/L (98-107); Estimated GFR-MDRD Greater than 90; Glucose 100 mg/dL (83-110); Potassium 3.1 mmol/L (3.5-5.1); Sodium 152 mmol/L (136-145)
[2017-05-03 05:29] LABS: Anisocytosis SLIGHT = 6-15 cells (100X) (0-5/hpf); Band 1 % (5-11); Hemoglobin 7.9 g/dL (14.0-18.0); Lymphocytes 17 % (21-51); MDiff Complete? YES; Mean Corpuscular HGB CONC 31.7 g/dL (32.0-36.0); Mean Corpuscular Hemoglobin 28.5 pg (27.0-31.0); Mean Platelet Volume 8.8 fL (7.4-10.4); Monocytes 3 % (0-10); Neutrophil 79 % (42-75); Nucleated RBC 1 % (0); Ovalocytes SLIGHT = 2-5 cells (100X) (0-1/hpf); PLT Morphology Comment Appears Adequate; Platelet Count 136 thou/uL (130-400); RBC Distribution Width 18.8 % (11.5-14.5); Red Blood Cell (RBC) Count 2.78 mill/uL (4.70-6.10); White Blood Cell (WBC) Count 6.8 thou/uL (4.8-10.8)
[2017-05-03] MEDS: Cefepime 2 GM in Syringe 12.5 ML SLOW IVP SCH ×2 (09:19→20:01)
[2017-05-03] MEDS: Enoxaparin Sodium 60 MG/0.6 ML SYRINGE SC SCH ×2 (09:19→20:02)
[2017-05-03] MEDS: Scopolamine 1.5 mg/72 hour Patch TD SCH (09:20)
[2017-05-03] MEDS: Polyethylene Glycol 3350 17 GM Packet PO SCH (09:20)
[2017-05-03] MEDS: Pantoprazole 40 MG GRANULES PACKET PO SCH (09:20)
--- NOTE | 2017-05-03 09:24 | RAD ---
AP VIEW OF CHEST: Date: 05/03/17 INDICATION: Intubation. COMPARISON: Prior exam dated 05/01/17. FINDINGS: There is worsening cardiomegaly, pulmonary vascular congestion, and central edema pattern. The small bilateral pleural effusions appear slightly more pronounced. Dual lead pacemaker is unchanged. Gastri c catheter and ET tube are similar. Pacer pad overlying the central chest wall has been removed. No p neumothorax is evident. IMPRESSION: Findings suggesting worsening CHF. Continued follow-up recommended. POS: [facility]
--- NOTE | 2017-05-03 13:23 | PRG ---
DATE OF SERVICE: 05/03/2017 SUBJECTIVE: Mr. Kasper remains intubated on the ventilator. The patient awakens to verbal stimuli. PHYSICAL EXAMINATION: VITAL SIGNS: Blood pressure 127/48, pulse 80, it is atrial fibrillation. LUNGS: Clear anteriorly and laterally. CARDIAC: Irregular. ABDOMEN: Soft, nontender. EXTREMITIES: Mild edema. PERTINENT LABORATORY DATA: Sodium is 152, up from 149 yesterday. His hemoglobin is 7.9, potassium i s 3.1. Chest x-ray shows worsening of his congestive heart failure. ASSESSMENT: 1. Coronary artery disease. 2. Respiratory failure. 3. Chronic obstructive pulmonary disease. 4. Hypernatremia. 5. Previous stent implantation in the left anterior descending and right coronary artery. 6. Previous right carotid endarterectomy. 7. Diastolic heart failure, worsening. 8. Anemia. 9. Pulmonary hypertension. 10. Peripheral vascular disease, status post procedures. 11. Status post ventricular fibrillation. 12. Atrial fibrillation. PLAN: 1. Increase free water. 2. Increase diuretics. 3. Prognosis looking increasingly worse in this gentleman, we will discuss with the other lean consultant s.
[2017-05-03] MEDS: Furosemide 40 MG/4 ML VIAL SLOW IVP SCH (13:30)
--- NOTE | 2017-05-03 14:25 | PDOC.PN ---
- Subjective Encounter Start Date: 05/03/17 Encounter Start Time: 14:36 Subjective: No complaints. responding with head movement. - Objective MAR Reviewed: Yes Vital Signs & Weight: Vital Signs (12 hours) Temp Pulse Resp Pulse Ox 05/03/17 14:00 16 05/03/17 12:00 16 05/03/17 11:00 97.8 F 05/03/17 09:57 16 05/03/17 07:48 16 05/03/17 07:30 98.0 F 79 16 98 05/03/17 07:00 98.0 F 79 16 98 05/03/17 06:00 16 05/03/17 04:00 99.1 F 05/03/17 03:50 16 05/03/17 02:23 78 19 98 Weight Admit Weight 158 lb Weight 151 lb 14.4 oz Most Recent Monitor Data Heart Rate from ECG 76 NIBP 110/35 NIBP BP-Mean 64 Respiration from ECG 21 SpO2 100 I&O: 05/02/17 05/03/17 05/04/17 06:59 06:59 06:59 Intake Total 647 1206 532.5 Output Total 2540 1960 419 Balance -1893 -754 113.5 Result Diagrams: 05/03/17 04:50 05/03/17 04:50 Additional Labs: Accuchecks 05/03/17 05/03/17 05/02/17 12:15 00:36 17:50 POC Glucose 112 H 97 119 H Radiology Reviewed by me: Yes Phys Exam - Physical Examination Constitutional: NAD HEENT: PERRLA, moist MMs, sclera anicteric Neck: supple Respiratory: no wheezing, no rales, no rhonchi, clear to auscultation bilateral Cardiovascular: no significant murmur, no rub, irregular Gastrointestinal: soft, non-tender, no distention, positive bowel sounds Musculoskeletal: no edema Neurological: non-focal, moves all 4 limbs (Awake and following commands. ) Skin: no rash Dx/Plan (1) Acute hypoxemic respiratory failure Code(s): J96.01 - ACUTE RESPIRATORY FAILURE WITH HYPOXIA Status: Acute Plan: Continue mx Comment: Previously extubated; Remains reintubated s/p cardiac arrest 05/01. On minimal vent settings. Daily trails at weaning Continue Vancomycin and Cefepime Resp therapy Daily CXR ABG Pulm on board, recs appreciated. (2) Acute on chronic diastolic (congestive) heart failure Code(s): I50.33 - ACUTE ON CHRONIC DIASTOLIC (CONGESTIVE) HEART FAILURE Status : Acute Plan: On IV lasix. Monitor I/O, daily weights. Obtain repeat BNP/ Comment: CXR 05/03 shows worsening CHF. On IV Lasix Cardiology on board. Recs appreciated. (3) Cardiac arrest Code(s): I46.9 - CARDIAC ARREST, CAUSE UNSPECIFIED Status: Acute Plan: See problem #1. Comment: V-fib , converted with defibrilation (4) Demand ischemia of myocardium Code(s): I24.8 - OTHER FORMS OF ACUTE ISCHEMIC HEART DISEASE Status: Acute Comment: Symptom Free. 2/2 Cardiac arrest. Monitor. (5) Hypokalemia Code(s): E87.6 - HYPOKALEMIA Status: Acute Plan: Being repleted. Monitor magnesium too. Repeat BMP today. Comment: Repleted. Likely 2/2 diuretics. (6) PNA (pneumonia) Code(s): J18.9 - PNEUMONIA, UNSPECIFIED ORGANISM Status: Acute Qualifiers: Pneumonia type: due to unspecified organism Laterality: bilateral Lung location: unspecified part of lung Qualified Code(s): J18.9 - Pneumonia, unspecified organism Comment: On vancomycin and Cefepime/ Cx negative. (7) Sepsis with acute organ dysfunction Code(s): A41.9 - SEPSIS, UNSPECIFIED ORGANISM; R65.20 - SEVERE SEPSIS WITHOUT SEPTIC SHOCK Status: Resolved Comment: On Vancomycin and Cefepime (8) Anemia, normocytic normochromic Code(s): D64.9 - ANEMIA, UNSPECIFIED Status: Chronic Comment: Trending down. Will obtain iron panel. (9) COPD (chronic obstructive pulmonary disease) Status: Chronic Qualifiers: COPD type: unspecified COPD Qualified Code(s): J44.9 - Chronic obstructive pulmonary disease, unspecified (10) Coronary artery disease Code(s): I25.10 - ATHSCL HEART DISEASE OF [place] CORONARY ARTERY W/O ANG PCTRS Status: Chronic Plan: Continue on vent. Nebs PRN.. Comment: with NSTEMI due to demand ischemia (11) Hyponatremia Code(s): E87.1 - HYPO-OSMOLALITY AND HYPONATREMIA Status: Acute Plan: Monitor. Comment: On free water flushes through feeding tube. - Plan cont current plan of care, continue antibiotics, PT/OT, respiratory therapy * .
[2017-05-03] MEDS: HumaLOG 300 UNITS/3 ML VIAL SC PRN (16:16)
--- NOTE | 2017-05-03 18:48 | PRG ---
DATE OF SERVICE: 05/03/2017 SUBJECTIVE: Mr. Kasper did well overnight, he will awaken, he will nod. OBJECTIVE: VITAL SIGNS: His respiratory rate is in the teens. Heart rate is in the 70s. Blood pressure 102/41. LUNGS: Remarkable for crackles bilaterally that are faint. HEART: Regular rhythm. ABDOMEN: Soft. LABORATORY DATA: White count 6.8, hemoglobin 7.9, platelets 136. Sodium 152, potassium 3.1, chloride 112, bicarb 29, BUN 30, creatinine 0.7. Intake and output was negative 754. IMPRESSION: 1. Probable pneumonia on admission. 2. V-tach and ventricular fibrillation, ?ischemia induced. 3. Status post reintubation after doing extremely well all night until he had defibrillator. 4. History of coronary artery disease? progressive disease with a culprit lesion triggering these acute decompensations. PLAN: Gentle diuresis and hope for cardiac catheterization in few days if he remains stable. Critical care time 30 min MTDD
[2017-05-03 19:29] LABS: Potassium 3.8 mmol/L (3.5-5.1)
[2017-05-03] MEDS: Vancomycin HCl 1 GM in Premix Bag 1 BAG IVPB SCH (22:22)
[2017-05-04] MEDS: Propofol 1,000 MG/100 ML VIAL IV PRN ×4 (01:10→18:04)
[2017-05-04] MEDS: guaiFENesin 200 MG TAB PO SCH ×6 (01:10→21:22)
[2017-05-04] MEDS: Furosemide 40 MG/4 ML VIAL SLOW IVP SCH ×2 (04:59→16:15)
[2017-05-04 05:02] LABS: Hemoglobin 7.7 g/dL (14.0-18.0); Mean Corpuscular HGB CONC 31.3 g/dL (32.0-36.0); Mean Corpuscular Hemoglobin 28.3 pg (27.0-31.0); Mean Corpuscular Volume 90.6 fl (80.0-94.0); Mean Platelet Volume 9.2 fL (7.4-10.4); Platelet Count 128 thou/uL (130-400); Red Blood Cell (RBC) Count 2.72 mill/uL (4.70-6.10); White Blood Cell (WBC) Count 7.2 thou/uL (4.8-10.8)
[2017-05-04 05:03] LABS: Band 10 % (5-11); Eosinophils 1 % (0-10); Lymphocytes 22 % (21-51); MDiff Complete? YES; Monocytes 4 % (0-10); Neutrophil 63 % (42-75); Nucleated RBC 1 % (0); PLT Morphology Comment Appears Adequate
[2017-05-04 05:11] LABS: ALT (SGPT) 41 U/L (8-55); AST (SGOT) 26 U/L (5-34); Albumin 2.7 g/dL (3.4-4.8); Alkaline Phosphatase 46 U/L (40-150); Anion Gap 10 mmol/L (10-20); BUN (Urea Nitrogen) 33 mg/dL (8.4-25.7); Bilirubin, Total 0.4 mg/dL (0.2-1.2); Calc. Creatinine Clearance 83 mL/min (70-130); Calcium 8.5 mg/dL (7.8-10.44); Carbon Dioxide 32 mmol/L (23-31); Chloride 107 mmol/L (98-107); Estimated GFR-MDRD Greater than 90; Globulin 1.9 g/dL (2.4-3.5); Glucose 106 mg/dL (83-110); Iron 24 ug/dL (65-175); Iron Binding Capacity, Total 224 mcg/dL (261-462); Magnesium 2.2 mg/dL (1.6-2.6); Potassium 3.7 mmol/L (3.5-5.1); Protein, Total 4.6 g/dL (5.8-8.1); Sodium 145 mmol/L (136-145)
[2017-05-04 05:39] LABS: Folate (Folic Acid) 13.3 ng/mL (7.0-31.4)
[2017-05-04 07:33] LABS: pH, Arterial 7.47 (7.35-7.45)
[2017-05-04 07:34] LABS: Actual Bicarbonate (HCO3a) 29.4 mEq/L (22-26); Base Excess (BEa) 5.3 mEq/L (0 (+/-) 2.5); CO2 Tension 41.2 mmHg (35.0-45.0); Calcium, Ionized 1.2 mmol/L (1.12-1.30); Hematocrit-ABG 23.3 % (42.0-52.0); Hemoglobin (Hb) 7.3 g/dL (14.0-18.0); O2 Tension (PaO2) 72.8 mmHg (80.0-100.0)
[2017-05-04 07:35] LABS: Puncture Site LBA
[2017-05-04] MEDS: Enoxaparin Sodium 60 MG/0.6 ML SYRINGE SC SCH ×2 (08:26→21:21)
[2017-05-04] MEDS: Potassium Chloride 20 MEQ TAB PER TUBE SCH (08:26)
[2017-05-04] MEDS: Cefepime 2 GM in Syringe 12.5 ML SLOW IVP SCH ×2 (08:26→21:21)
[2017-05-04] MEDS: Pantoprazole 40 MG GRANULES PACKET PO SCH (08:29)
[2017-05-04] MEDS: Polyethylene Glycol 3350 17 GM Packet PO SCH (08:29)
--- NOTE | 2017-05-04 09:01 | RAD ---
SEMIUPRIGHT PORTABLE CHEST 1 VIEW: Date: 05/04/17 HISTORY: 77-year-old male with respiratory insufficiency. FINDINGS: NG tube and endotracheal tubes are in satisfactory location. Left ICD. Extensive bilateral interstiti al and alveolar edema and large pleural effusions with overall improvement from 05/03/17. Healed righ t rib fractures. IMPRESSION: Improving pulmonary edema, pleural effusions, cardiomegaly, and signs of congestive heart failure. Co ntinue short-term follow-up. POS: [facility]
--- NOTE | 2017-05-04 11:49 | PRG ---
DATE OF SERVICE: 05/04/2017 SUBJECTIVE: Mr. Kasper continues to be mechanically ventilated. He is wide awake. He moves all hi s extremities. He is in no distress. He has had no ventricular tachycardia reported to me over 90s. OBJECTIVE: VITAL SIGNS: Heart rate is 87, respiratory rate is 14. His oximetry is in the 90s on mechanical emmanuel tilation (97). LUNGS: Remarkable for coarse equal breath sounds. HEART: Regular rhythm. S1 and S2 are normal. ABDOMEN: Soft and nontender. IMAGING DATA: Chest radiograph reviewed by me shows improved edema. LABORATORY DATA: Lab work reviewed, shows white count is 7.2, hemoglobin 7.7, it was 7.9 yesterday, platelets of 128. Sodium 145, potassium 3.7, chloride 107, bicarbonate 32, BUN 32, and creatinine 0. 73. Given that we suspect he may have unstable coronary disease. I will transfuse a unit red cells today . We will continue with diuresis, mechanical ventilation. He is tentatively for cardiac catheterizatio n on Sunday if he remains stable from my discussion with Dr. Powers.
--- NOTE | 2017-05-04 11:49 | PDOC.PN ---
- Subjective Encounter Start Date: 05/04/17 Encounter Start Time: 11:56 Subjective: Intubated but awake. Has no complaints. - Objective Resuscitation Status: Resuscitation Status FULL:Full Resuscitation MAR Reviewed: Yes Vital Signs & Weight: Vital Signs (12 hours) Temp Pulse Pulse Pulse Resp BP BP 05/04/17 11:04 86 145/58 H 05/04/17 11:02 85 25 H 05/04/17 10:54 98.7 F 05/04/17 10:30 84 79 158/55 H 05/04/17 10:00 29 H 05/04/17 08:00 18 05/04/17 07:48 98.5 F 75 21 H 05/04/17 06:48 75 102/33 L 05/04/17 06:47 77 17 05/04/17 06:00 16 05/04/17 04:00 98.3 F 16 05/04/17 02:52 72 16 05/04/17 02:00 16 05/04/17 00:00 98.2 F 16 BP Pulse Ox 05/04/17 11:04 05/04/17 11:02 97 05/04/17 10:54 05/04/17 10:30 152/57 H 05/04/17 10:00 05/04/17 08:00 05/04/17 07:48 99 05/04/17 06:48 05/04/17 06:47 99 05/04/17 06:00 05/04/17 04:00 05/04/17 02:52 100 05/04/17 02:00 05/04/17 00:00 Weight Admit Weight 158 lb Weight 156 lb 4.924 oz Most Recent Monitor Data Heart Rate from ECG 84 NIBP 145/58 NIBP BP-Mean 83 Respiration from ECG 24 SpO2 96 I&O: 05/03/17 05/04/17 05/05/17 06:59 06:59 06:59 Intake Total 1206 4770.5 532.5 Output Total 1960 1689 690 Balance -754 3081.5 -157.5 Result Diagrams: 05/04/17 04:23 05/04/17 04:23 Additional Labs: Accuchecks 05/04/17 05/04/17 05/03/17 09:38 04:52 22:22 POC Glucose 103 95 123 H 05/03/17 05/03/17 15:48 12:15 POC Glucose 179 H 112 H Radiology Reviewed by me: Yes Phys Exam - Physical Examination Constitutional: NAD HEENT: PERRLA, moist MMs, sclera anicteric Neck: no JVD, supple, full ROM Respiratory: no wheezing, no rales, no rhonchi, clear to auscultation bilateral Cardiovascular: RRR, no significant murmur, no rub Gastrointestinal: soft, non-tender, no distention, positive bowel sounds Musculoskeletal: no edema, pulses present Neurological: non-focal (Intubated but awake and comfortable. Responding with head gestures), moves all 4 limbs Skin: no rash, normal turgor Dx/Plan (1) Acute hypoxemic respiratory failure Code(s): J96.01 - ACUTE RESPIRATORY FAILURE WITH HYPOXIA Status: Acute Plan: Continue current care. Comment: Previously extubated; reintubated s/p cardiac arrest 05/01. On minimal vent settings. Daily SBT Continue Vancomycin and Cefepime Continue IV steroids. Resp therapy Daily CXR Daily ABG Pulm on board, recs appreciated. (2) Acute on chronic diastolic (congestive) heart failure Code(s): I50.33 - ACUTE ON CHRONIC DIASTOLIC (CONGESTIVE) HEART FAILURE Status : Acute Plan: Improving CXR findings. Continue diuresis. Comment: CXR 05/04 shows improving CHF. On IV Lasix Cardiology on board. Recs appreciated. PLan to take patient for cath. (3) Cardiac arrest Code(s): I46.9 - CARDIAC ARREST, CAUSE UNSPECIFIED Status: Acute Plan: Continue current treatment. Cardiology on board. Cath planned sometime in the next few days when clinical picture improves. Comment: V-fib , converted with defibrilation (4) Demand ischemia of myocardium Code(s): I24.8 - OTHER FORMS OF ACUTE ISCHEMIC HEART DISEASE Status: Acute Plan: As above. Comment: Symptom Free. 2/2 Cardiac arrest. Monitor. (5) Hypokalemia Code(s): E87.6 - HYPOKALEMIA Status: Acute Plan: Improving. Comment: Repleted. Likely 2/2 diuretics. (6) PNA (pneumonia) Code(s): J18.9 - PNEUMONIA, UNSPECIFIED ORGANISM Status: Acute Qualifiers: Pneumonia type: due to unspecified organism Laterality: bilateral Lung location: unspecified part of lung Qualified Code(s): J18.9 - Pneumonia, unspecified organism Plan: Stable O2 requirements. Comment: On vancomycin and Cefepime/ Cx negative. (7) Sepsis with acute organ dysfunction Code(s): A41.9 - SEPSIS, UNSPECIFIED ORGANISM; R65.20 - SEVERE SEPSIS WITHOUT SEPTIC SHOCK Status: Resolved Comment: On Vancomycin and Cefepime (8) Anemia, normocytic normochromic Code(s): D64.9 - ANEMIA, UNSPECIFIED Status: Chronic Comment: 2/2 Iron deficiency. Starged on supplementation. Transfuse for Hb < 7 (9) COPD (chronic obstructive pulmonary disease) Status: Chronic Qualifiers: COPD type: unspecified COPD Qualified Code(s): J44.9 - Chronic obstructive pulmonary disease, unspecified Comment: Stable O2 requirements. Not in exacerbartion. Continue RT (10) Coronary artery disease Code(s): I25.10 - ATHSCL HEART DISEASE OF [place] CORONARY ARTERY W/O ANG PCTRS Status: Chronic Comment: with NSTEMI due to demand ischemia. Planned for CATH (11) Hypernatremia Code(s): E87.0 - HYPEROSMOLALITY AND HYPERNATREMIA Status: Acute Comment: Improving with free water flushes through feeding tube. Will decrease frequency. (12) Thrombocytopenia Code(s): D69.6 - THROMBOCYTOPENIA, UNSPECIFIED Status: Acute Comment: Mild, asymptomatic. No signs of bleeding. SCDs. Monitor - Plan cont current plan of care, continue antibiotics, PT/OT, respiratory therapy * .
[2017-05-04] MEDS: Vancomycin HCl 1 GM in Premix Bag 1 BAG IVPB SCH (22:00)
--- NOTE | 2017-05-04 22:48 | PRG ---
DATE OF SERVICE: 05/04/2017 SUBJECTIVE: Mr. Kasper remains intubated on the ventilator. REVIEW OF SYSTEMS: Not available. PHYSICAL EXAMINATION: VITAL SIGNS: Blood pressure 150/50, pulse is 70-80; it is irregular. LUNGS: Clear. CARDIAC: Irregularly irregular. ABDOMEN: Soft, nontender. LABORATORIES: The iron levels are low at 24, ferritin 72, iron deficient. IMAGING: Chest x-ray continues to show heart failure. ASSESSMENT: 1. Congestive heart failure, diastolic, somewhat refractory. 2. Iron-deficiency anemia. 3. Coronary artery disease. 4. Atrial fibrillation. PLAN: 1. We will give intravenous iron tomorrow. 2. Consideration for heart catheterization can be given. We would like to discuss this first with h is . The prognosis is guarded to poor in this patient. Options appear limited. We would like t o discuss with her prior to going to the blood bank laboratory technician. The patient continues to not do well.
[2017-05-05] MEDS: guaiFENesin 200 MG TAB PO SCH ×6 (01:06→19:47)
[2017-05-05] MEDS: Propofol 1,000 MG/100 ML VIAL IV PRN ×3 (01:09→20:05)
[2017-05-05] MEDS: Furosemide 40 MG/4 ML VIAL SLOW IVP SCH ×2 (06:00→13:30)
[2017-05-05 06:19] LABS: ALT (SGPT) 42 U/L (8-55); AST (SGOT) 23 U/L (5-34); Albumin 2.8 g/dL (3.4-4.8); Alkaline Phosphatase 50 U/L (40-150); Anion Gap 10 mmol/L (10-20); BUN (Urea Nitrogen) 32 mg/dL (8.4-25.7); Bilirubin, Total 0.6 mg/dL (0.2-1.2); Calc. Creatinine Clearance 86 mL/min (70-130); Calcium 8.4 mg/dL (7.8-10.44); Carbon Dioxide 32 mmol/L (23-31); Chloride 104 mmol/L (98-107); Estimated GFR-MDRD Greater than 90; Glucose 81 mg/dL (83-110); Magnesium 2.1 mg/dL (1.6-2.6); Potassium 3.5 mmol/L (3.5-5.1); Protein, Total 4.8 g/dL (5.8-8.1); Sodium 142 mmol/L (136-145)
[2017-05-05 06:47] LABS: Band 7 % (5-11); Eosinophils 1 % (0-10); Hemoglobin 10.2 g/dL (14.0-18.0); Hypochromia SLIGHT = 6-15 cells (100X) (0-5/hpf); Lymphocytes 24 % (21-51); MDiff Complete? YES; Mean Corpuscular HGB CONC 31.2 g/dL (32.0-36.0); Mean Corpuscular Hemoglobin 28.2 pg (27.0-31.0); Mean Corpuscular Volume 90.5 fl (80.0-94.0); Monocytes 2 % (0-10); Neutrophil 66 % (42-75); PLT Morphology Comment Appears Decreased; Platelet Count 124 thou/uL (130-400); White Blood Cell (WBC) Count 7.4 thou/uL (4.8-10.8)
[2017-05-05 07:19] LABS: Actual Bicarbonate (HCO3a) 29.5 mEq/L (22-26); Base Excess (BEa) 4.9 mEq/L (0 (+/-) 2.5); CO2 Tension 43.8 mmHg (35.0-45.0); Calcium, Ionized 1.2 mmol/L (1.12-1.30); Hematocrit-ABG 29.7 % (42.0-52.0); Hemoglobin (Hb) 9.2 g/dL (14.0-18.0); O2 Tension (PaO2) 65.6 mmHg (80.0-100.0); pH, Arterial 7.45 (7.35-7.45)
[2017-05-05 07:20] LABS: Puncture Site RBA
[2017-05-05] MEDS ORDERED: Iron Dextran 500 MG in Sodium Chloride 0.9% 250 ML IVPB SCH (08:00)
--- NOTE | 2017-05-05 08:25 | RAD ---
CHEST 1 VIEW: Date: 05/05/17 HISTORY: Ventilated patient. COMPARISON: Chest 1 view dated 05/04/17. FINDINGS: Endotracheal tube tip is craniad to the trever, approximately 2.0 cm. Enteric tube tip below diaphrag m, though out of field of view. There are layering effusions bilaterally, worse on the right. Thicken ing of the right minor fissure. Heart size mildly enlarged. No pneumothorax. There is extrapleural density in right hemithorax, may be sequelae of layering effusion. Bibasilar opacities are present. IMPRESSION: No significant change in radiographic appearance of chest. POS: [facility]
--- NOTE | 2017-05-05 08:48 | PRG ---
DATE OF SERVICE: 05/05/2017 Thirty-five minutes critical care time. The patient remains intubated on mechanical ventilation. There have been no acute changes overnight. PHYSICAL EXAMINATION: VITAL SIGNS: Temperature 98.3 with T-max of 99.9, pulse 84, blood pressure 137/49. Total intake for 24 hours 1719, output 2025, weight 156 pounds. HEENT: Unremarkable. NECK: Without JVD or carotid bruits. LUNGS: Inspiratory crackles, primarily on the right. CARDIOVASCULAR: S1 and S2 regular, without murmur. ABDOMEN: Slightly distended with hypoactive bowel sounds. EXTREMITIES: No clubbing, cyanosis, but he has generalized edema throughout. LABORATORY DATA: White blood cell count 7.4, hemoglobin 10, hematocrit 32.6, platelet count 124, pH 7.45, pCO2 43, pO2 of 65 on SIMV rate 8, tidal volume 450, PEEP 5, pressure support 10, FiO2 30%. So dium 142, potassium 3.5, chloride 104, CO2 32, BUN 30, creatinine 0.7, glucose 81. Chest x-ray shows cardiomegaly with bilateral layering effusions. ASSESSMENT: 1. Acute respiratory failure requiring mechanical ventilation. 2. Diastolic congestive heart failure which has been refractory. 3. Atrial fibrillation. 4. Coronary disease. 5. Iron deficiency anemia. PLAN: The patient is being kept intubated in preparation for potential cardiac catheterization on . I have reviewed his orders. He is continuing antibiotic therapy for possible pneumonia. He h ad been receiving iron infusion for his anemia. He continues on diuretics. He is continuing on ente ral tube feeds. His prognosis is very guarded at this time.
[2017-05-05] MEDS: Pantoprazole 40 MG GRANULES PACKET PO SCH (08:54)
[2017-05-05] MEDS: Potassium Chloride 20 MEQ TAB PER TUBE SCH (08:55)
[2017-05-05] MEDS: Polyethylene Glycol 3350 17 GM Packet PO SCH (08:56)
[2017-05-05] MEDS: Cefepime 2 GM in Syringe 12.5 ML SLOW IVP SCH ×2 (08:56→19:45)
[2017-05-05] MEDS: Enoxaparin Sodium 60 MG/0.6 ML SYRINGE SC SCH ×2 (08:56→19:49)
--- NOTE | 2017-05-05 13:36 | PDOC.PN ---
- Subjective Encounter Start Date: 05/05/17 Encounter Start Time: 13:40 Subjective: no new complaints. -: No acute events overnight- got transfused with PRBC. - Objective Resuscitation Status: Resuscitation Status FULL:Full Resuscitation MAR Reviewed: Yes Vital Signs & Weight: Vital Signs (12 hours) Temp Pulse Resp BP Pulse Ox 05/05/17 12:00 98.3 F 17 05/05/17 11:52 81 137/65 05/05/17 11:48 77 21 H 98 05/05/17 11:00 98.0 F 05/05/17 09:51 19 05/05/17 08:00 18 05/05/17 07:25 98.3 F 84 16 98 05/05/17 06:34 79 153/60 H 05/05/17 06:32 76 18 96 05/05/17 06:00 16 05/05/17 03:04 71 22 H 100 05/05/17 03:00 99.9 F H 05/05/17 02:00 14 Weight Admit Weight 158 lb Weight 156 lb 15.506 oz Most Recent Monitor Data Heart Rate from ECG 77 NIBP 150/44 NIBP BP-Mean 69 Respiration from ECG 24 SpO2 100 I&O: 05/04/17 05/05/17 05/06/17 06:59 06:59 06:59 Intake Total 4770.5 1719.5 1592.5 Output Total 1689 2025 460 Balance 3081.5 -305.5 1132.5 Result Diagrams: 05/05/17 05:48 05/05/17 05:48 Additional Labs: Accuchecks 05/05/17 05/04/17 05/04/17 10:12 22:41 16:07 POC Glucose 108 89 140 H Phys Exam - Physical Examination Constitutional: NAD HEENT: PERRLA, moist MMs, sclera anicteric Neck: no JVD, supple, full ROM Respiratory: no wheezing, no rales, no rhonchi, clear to auscultation bilateral Cardiovascular: RRR, no significant murmur, no rub Gastrointestinal: soft, non-tender, no distention, positive bowel sounds Musculoskeletal: no edema, pulses present Neurological: non-focal, moves all 4 limbs Intubated but able to respond to commands. Psychiatric: A&O x 3 Skin: no rash, normal turgor Dx/Plan (1) Acute hypoxemic respiratory failure Code(s): J96.01 - ACUTE RESPIRATORY FAILURE WITH HYPOXIA Status: Acute Plan: No significant change in CXR Continue current management. Comment: Previously extubated; reintubated s/p cardiac arrest 05/01. On minimal vent settings. Daily SBT Continue Vancomycin and Cefepime Continue IV steroids. Resp therapy Daily CXR Daily ABG Pulm on board, recs appreciated. (2) Acute on chronic diastolic (congestive) heart failure Code(s): I50.33 - ACUTE ON CHRONIC DIASTOLIC (CONGESTIVE) HEART FAILURE Status : Acute Comment: CXR 05/04 shows improving CHF. 05/05 no significant change On IV Lasix Cardiology on board. Recs appreciated. PLan to take patient for cath when stable enough/ (3) Cardiac arrest Code(s): I46.9 - CARDIAC ARREST, CAUSE UNSPECIFIED Status: Acute Plan: Resolved. Comment: V-fib , converted with defibrilation (4) Demand ischemia of myocardium Code(s): I24.8 - OTHER FORMS OF ACUTE ISCHEMIC HEART DISEASE Status: Acute Comment: Symptom Free. 2/2 Cardiac arrest. Monitor. (5) Hypokalemia Code(s): E87.6 - HYPOKALEMIA Status: Acute Comment: Repleted. Likely 2/2 diuretics. (6) PNA (pneumonia) Code(s): J18.9 - PNEUMONIA, UNSPECIFIED ORGANISM Status: Acute Qualifiers: Pneumonia type: due to unspecified organism Laterality: bilateral Lung location: unspecified part of lung Qualified Code(s): J18.9 - Pneumonia, unspecified organism Comment: Septic on admission. On vancomycin and Cefepime/ Cx negative. No significant cx growths. f/uID recs. (7) Anemia, normocytic normochromic Code(s): D64.9 - ANEMIA, UNSPECIFIED Status: Chronic Comment: s/p transfusion with PRBC. 2/2 Iron deficiency. Starged on supplementation. Transfuse for Hb < 8 (8) COPD (chronic obstructive pulmonary disease) Status: Chronic Qualifiers: COPD type: unspecified COPD Qualified Code(s): J44.9 - Chronic obstructive pulmonary disease, unspecified Comment: Stable O2 requirements. Not in exacerbartion. Continue RT (9) Coronary artery disease Code(s): I25.10 - ATHSCL HEART DISEASE OF [place] CORONARY ARTERY W/O ANG PCTRS Status: Chronic Comment: with NSTEMI due to demand ischemia. Planned for CATH (10) Hypernatremia Code(s): E87.0 - HYPEROSMOLALITY AND HYPERNATREMIA Status: Acute Comment: Stable. on free water flushes through feeding tube. (11) Thrombocytopenia Code(s): D69.6 - THROMBOCYTOPENIA, UNSPECIFIED Status: Acute Plan: Stable. Comment: Mild, asymptomatic. No signs of bleeding. SCDs. Monitor - Plan cont current plan of care, continue antibiotics, PT/OT, respiratory therapy * .
[2017-05-05] MEDS: Vancomycin HCl 1 GM in Premix Bag 1 BAG IVPB SCH (21:10)
--- NOTE | 2017-05-05 21:30 | PDOC.CTH ---
Cardiology Progress Note - Objective Vital Signs Temp Pulse Resp BP Pulse Ox 05/05/17 20:00 98.4 F 14 05/05/17 18:58 85 05/05/17 18:57 100 05/05/17 17:58 19 05/05/17 16:00 98.3 F 19 05/05/17 15:41 71 126/51 L 05/05/17 15:39 73 12 100 05/05/17 13:56 18 05/05/17 12:00 98.3 F 17 05/05/17 11:52 81 137/65 05/05/17 11:48 77 21 H 98 05/05/17 11:00 98.0 F 05/05/17 09:51 19 Admit Weight 158 lb Weight 156 lb 15.506 oz 05/04/17 05/05/17 05/06/17 06:59 06:59 06:59 Intake Total 4770.5 1719.5 2521.5 Output Total 1689 2025 1150 Balance 3081.5 -305.5 1371.5 - Labs Result Diagrams: 05/05/17 05:48 05/05/17 05:48 Troponin/CKMB CK-MB (CK-2) 4.3 ng/mL (0-6.6) 05/01/17 06:44 Troponin I 0.347 ng/mL (< 0.028) H* 05/01/17 12:05 - Assessment/Plan 1. S/p V fib Cardiac arrest on 05/01/17 - Converted back with CPR 2. Resp. failure with Mechanical ventilation support - 3. Acute on Chronic diastolic HF - on Laisx IV; 4. CAD with NSTEMI due to demand ischemia. Planned for CATH (1) Acute hypoxemic respiratory failure Code(s): J96.01 - ACUTE RESPIRATORY FAILURE WITH HYPOXIA Status: Acute Plan: No significant change in CXR Continue current management. Comment: Previously extubated; reintubated s/p cardiac arrest 05/01. On minimal vent settings. Daily SBT Continue Vancomycin and Cefepime Continue IV steroids. Resp therapy Daily CXR Daily ABG Pulm on board, recs appreciated. (2) Acute on chronic diastolic (congestive) heart failure Code(s): I50.33 - ACUTE ON CHRONIC DIASTOLIC (CONGESTIVE) HEART FAILURE Status : Acute Comment: CXR 05/04 shows improving CHF. 05/05 no significant change On IV Lasix Cardiology on board. Recs appreciated. PLan to take patient for cath when stable enough/ (3) Cardiac arrest Code(s): I46.9 - CARDIAC ARREST, CAUSE UNSPECIFIED Status: Acute Plan: Resolved. Comment: V-fib , converted with defibrilation (4) Demand ischemia of myocardium Code(s): I24.8 - OTHER FORMS OF ACUTE ISCHEMIC HEART DISEASE Status: Acute Comment: Symptom Free. 2/2 Cardiac arrest. Monitor. (5) Hypokalemia Code(s): E87.6 - HYPOKALEMIA Status: Acute Comment: Repleted. Likely 2/2 diuretics. (6) PNA (pneumonia) Code(s): J18.9 - PNEUMONIA, UNSPECIFIED ORGANISM Status: Acute Qualifiers: Pneumonia type: due to unspecified organism Laterality: bilateral Lung location: unspecified part of lung Qualified Code(s): J18.9 - Pneumonia, unspecified organism Comment: Septic on admission. On vancomycin and Cefepime/ Cx negative. No significant cx growths. f/uID recs. (7) Anemia, normocytic normochromic Code(s): D64.9 - ANEMIA, UNSPECIFIED Status: Chronic Comment: s/p transfusion with PRBC. 2/2 Iron deficiency. Starged on supplementation. Transfuse for Hb < 8 (8) COPD (chronic obstructive pulmonary disease) Status: Chronic Qualifiers: COPD type: unspecified COPD Qualified Code(s): J44.9 - Chronic obstructive pulmonary disease, unspecified Comment: Stable O2 requirements. Not in exacerbartion. Continue RT (9) Coronary artery disease Code(s): I25.10 - ATHSCL HEART DISEASE OF [place] CORONARY ARTERY W/O ANG PCTRS Status: Chronic Comment: with NSTEMI due to demand ischemia. Planned for CATH (10) Hypernatremia Code(s): E87.0 - HYPEROSMOLALITY AND HYPERNATREMIA Status: Acute Comment: Stable. on free water flushes through feeding tube. (11) Thrombocytopenia Code(s): D69.6 - THROMBOCYTOPENIA, UNSPECIFIED Status: Acute Plan: Stable. Comment: Mild, asymptomatic. No signs of bleeding. SCDs. Monitor - Plan cont current plan of care, continue antibiotics, PT/OT, respiratory therapy
[2017-05-06] MEDS: Furosemide 40 MG/4 ML VIAL SLOW IVP SCH ×2 (05:18→14:05)
[2017-05-06] MEDS: guaiFENesin 200 MG TAB PO SCH ×6 (05:18→20:28)
[2017-05-06 07:46] LABS: ALT (SGPT) 57 U/L (8-55); AST (SGOT) 54 U/L (5-34); Albumin 2.9 g/dL (3.4-4.8); Alkaline Phosphatase 58 U/L (40-150); Anion Gap 16 mmol/L (10-20); BUN (Urea Nitrogen) 32 mg/dL (8.4-25.7); Bilirubin, Total 0.5 mg/dL (0.2-1.2); Calc. Creatinine Clearance 88 mL/min (70-130); Calcium 8.8 mg/dL (7.8-10.44); Carbon Dioxide 26 mmol/L (23-31); Chloride 103 mmol/L (98-107); Estimated GFR-MDRD Greater than 90; Globulin 2.5 g/dL (2.4-3.5); Glucose 79 mg/dL (83-110); Magnesium 2.4 mg/dL (1.6-2.6); Protein, Total 5.4 g/dL (5.8-8.1); Sodium 141 mmol/L (136-145)
[2017-05-06 08:10] LABS: CO2 Tension 41.6 mmHg (35.0-45.0); O2 Tension (PaO2) 59.9 mmHg (80.0-100.0); pH, Arterial 7.47 (7.35-7.45)
[2017-05-06 08:11] LABS: Actual Bicarbonate (HCO3a) 29.7 mEq/L (22-26); Base Excess (BEa) 5.5 mEq/L (0 (+/-) 2.5); Calcium, Ionized 1.2 mmol/L (1.12-1.30); Hematocrit-ABG 32.3 % (42.0-52.0); Hemoglobin (Hb) 9.7 g/dL (14.0-18.0)
[2017-05-06 08:12] LABS: Puncture Site RBA
--- NOTE | 2017-05-06 08:38 | RAD ---
CHEST 1 VIEW: Date: 05/06/17 HISTORY: Ventilated patient. COMPARISON: Chest 1 view from prior day. FINDINGS: The patient is intubated with endotracheal tube tip craniad to the trever 2.0 cm. Small effusions. r space opacity is present in both lower lobes. Enteric tube tip below diaphragm, although out of field of view. IMPRESSION: No significant change. POS: [facility]
[2017-05-06] MEDS: Pantoprazole 40 MG GRANULES PACKET PO SCH (08:50)
[2017-05-06] MEDS: Enoxaparin Sodium 60 MG/0.6 ML SYRINGE SC SCH ×2 (08:51→20:28)
[2017-05-06] MEDS: Polyethylene Glycol 3350 17 GM Packet PO SCH (08:51)
[2017-05-06] MEDS: Potassium Chloride 20 MEQ TAB PER TUBE SCH (08:51)
[2017-05-06] MEDS: Scopolamine 1.5 mg/72 hour Patch TD SCH (08:51)
[2017-05-06 08:59] LABS: Hemoglobin 11.1 g/dL (14.0-18.0); Mean Corpuscular HGB CONC 31.3 g/dL (32.0-36.0); Mean Corpuscular Hemoglobin 28.2 pg (27.0-31.0); Mean Corpuscular Volume 90.2 fl (80.0-94.0); Mean Platelet Volume 9.6 fL (7.4-10.4); Platelet Count 120 thou/uL (130-400); RBC Distribution Width 18.1 % (11.5-14.5); Red Blood Cell (RBC) Count 3.92 mill/uL (4.70-6.10); White Blood Cell (WBC) Count 9.9 thou/uL (4.8-10.8)
[2017-05-06] MEDS: Cefepime 2 GM in Syringe 12.5 ML SLOW IVP SCH ×2 (09:00→20:32)
[2017-05-06 09:32] LABS: Anisocytosis MODERATE=16-30 cells (100X) (0-5/hpf); Eosinophils 6 % (0-10); Lymphocytes 18 % (21-51); MDiff Complete? YES; Monocytes 4 % (0-10); Neutrophil 72 % (42-75); PLT Morphology Comment Appears Decreased; Polychromasia SLIGHT = 2-3 cells (100X) (0-2/hpf)
--- NOTE | 2017-05-06 10:06 | PRG ---
DATE OF SERVICE: 05/06/2017 Thirty-five minutes critical care time. SUBJECTIVE: The patient remains intubated on mechanical ventilation. He will wake up and follow com mands. PHYSICAL EXAMINATION: VITAL SIGNS: His temperature is 98.6, pulse 84, blood pressure 120/42, a 24-hour intake 3777, output 1670, and weight 156 pounds. HEENT: Unremarkable. NECK: No JVD. LUNGS: Coarse breath sounds. CARDIAC: S1 and S2 regular. ABDOMEN: Soft. EXTREMITIES: No edema. LABORATORY DATA: White blood cell count 9.9, hematocrit 35.3, platelet count 120. PH 7.47, pCO2 of 41, pO2 of 59 on SIMV rate 8, tidal volume 450, PEEP 5, pressure support 10, FiO2 30%. Sodium 141, p otassium 4, chloride 103, CO2 of 26, BUN 32, creatinine 0.7, glucose 79. Chest x-ray shows no signif icant change. ASSESSMENT: 1. Acute respiratory requiring mechanical ventilation. 2. Diastolic congestive heart failure which has been refractory. 3. Atrial fibrillation. 4. Coronary artery disease. PLAN: Continue mechanical ventilation in preparation for cardiac catheterization tomorrow. I do not see any new orders that need to be written at this time.
--- NOTE | 2017-05-06 14:04 | PDOC.PN ---
- Subjective Encounter Start Date: 05/06/17 Encounter Start Time: 14:02 Subjective: No acute events overnight. -: oxygen requirements unchanged. - Objective Resuscitation Status: Resuscitation Status FULL:Full Resuscitation MAR Reviewed: Yes Vital Signs & Weight: Vital Signs (12 hours) Temp Pulse Resp BP Pulse Ox 05/06/17 12:00 98.5 F 19 05/06/17 11:33 89 173/41 H 05/06/17 11:25 87 24 H 94 L 05/06/17 10:00 20 05/06/17 08:00 98.6 F 21 H 05/06/17 07:46 77 175/62 H 05/06/17 07:45 84 21 H 96 05/06/17 07:09 98.6 F 82 18 96 05/06/17 06:00 21 H 05/06/17 04:00 18 05/06/17 03:37 77 Weight Admit Weight 158 lb Weight 156 lb 15.506 oz Most Recent Monitor Data Heart Rate from ECG 76 NIBP 135/42 NIBP BP-Mean 70 Respiration from ECG 19 SpO2 99 I&O: 05/05/17 05/06/17 05/07/17 06:59 06:59 06:59 Intake Total 1719.5 3777.5 220 Output Total 2025 1670 1046 Balance -305.5 2107.5 -826 Result Diagrams: 05/06/17 06:46 05/06/17 06:46 Additional Labs: Accuchecks 05/06/17 05/06/17 05/05/17 10:26 06:51 22:37 POC Glucose 88 82 119 H 05/05/17 16:15 POC Glucose 140 H Radiology Reviewed by me: Yes Phys Exam - Physical Examination Constitutional: NAD HEENT: PERRLA, moist MMs, sclera anicteric Neck: supple, full ROM Respiratory: no wheezing, no rales, no rhonchi, clear to auscultation bilateral Cardiovascular: RRR, no significant murmur, no rub Gastrointestinal: soft, non-tender, no distention, positive bowel sounds Musculoskeletal: no edema, pulses present Neurological: moves all 4 limbs Intubated but able to follow commands. Skin: no rash, normal turgor Dx/Plan (1) Acute hypoxemic respiratory failure Code(s): J96.01 - ACUTE RESPIRATORY FAILURE WITH HYPOXIA Status: Acute Comment: Stable. Previously extubated; reintubated s/p cardiac arrest 05/01. On minimal vent settings. Daily SBT Continue Vancomycin and Cefepime Continue IV steroids. Resp therapy Daily CXR Daily ABG Pulm on board, recs appreciated. (2) Acute on chronic diastolic (congestive) heart failure Code(s): I50.33 - ACUTE ON CHRONIC DIASTOLIC (CONGESTIVE) HEART FAILURE Status : Acute Comment: Improving with diuresis Cardiology on board. Recs appreciated. Scheduled to undergo cath 05/07 (3) Cardiac arrest Code(s): I46.9 - CARDIAC ARREST, CAUSE UNSPECIFIED Status: Resolved Comment : V-fib , converted with defibrilation (4) Demand ischemia of myocardium Code(s): I24.8 - OTHER FORMS OF ACUTE ISCHEMIC HEART DISEASE Status: Resolved Comment: Symptom Free. 2/2 Cardiac arrest. Monitor. (5) Hypokalemia Code(s): E87.6 - HYPOKALEMIA Status: Resolved Comment: Repleted. Likely 2/2 diuretics. (6) PNA (pneumonia) Code(s): J18.9 - PNEUMONIA, UNSPECIFIED ORGANISM Status: Acute Qualifiers: Pneumonia type: due to unspecified organism Laterality: bilateral Lung location: unspecified part of lung Qualified Code(s): J18.9 - Pneumonia, unspecified organism Comment: Septic on admission. On vancomycin and Cefepime/ Cx negative. No significant cx growths. f/uID recs. (7) Anemia, normocytic normochromic Code(s): D64.9 - ANEMIA, UNSPECIFIED Status: Chronic Plan: Stable Hb. Continue Mx. Comment: s/p transfusion with PRBC. 2/2 Iron deficiency. Starged on supplementation. Transfuse for Hb < 8 (8) COPD (chronic obstructive pulmonary disease) Status: Chronic Qualifiers: COPD type: unspecified COPD Qualified Code(s): J44.9 - Chronic obstructive pulmonary disease, unspecified Comment: Stable O2 requirements. Not in exacerbartion. Continue RT (9) Coronary artery disease Code(s): I25.10 - ATHSCL HEART DISEASE OF [place] CORONARY ARTERY W/O ANG PCTRS Status: Chronic Comment: with NSTEMI due to demand ischemia. Planned for CATH (10) Hypernatremia Code(s): E87.0 - HYPEROSMOLALITY AND HYPERNATREMIA Status: Resolved Comment : Stable. on free water flushes through feeding tube. (11) Thrombocytopenia Code(s): D69.6 - THROMBOCYTOPENIA, UNSPECIFIED Status: Acute Plan: Monitor. Comment: Mild, asymptomatic. No signs of bleeding. SCDs. Monitor - Plan * .
[2017-05-06 21:52] LABS: Vancomycin, Trough 19.2 ug/mL
[2017-05-06] MEDS: Vancomycin HCl 1 GM in Premix Bag 1 BAG IVPB SCH (23:04)
[2017-05-07] MEDS: guaiFENesin 200 MG TAB PO SCH ×6 (00:16→20:05)
[2017-05-07 05:57] LABS: ALT (SGPT) 57 U/L (8-55); AST (SGOT) 45 U/L (5-34); Albumin 2.9 g/dL (3.4-4.8); Alkaline Phosphatase 65 U/L (40-150); Anion Gap 13 mmol/L (10-20); BUN (Urea Nitrogen) 30 mg/dL (8.4-25.7); Bilirubin, Total 0.7 mg/dL (0.2-1.2); Calc. Creatinine Clearance 88 mL/min (70-130); Calcium 8.8 mg/dL (7.8-10.44); Carbon Dioxide 28 mmol/L (23-31); Chloride 100 mmol/L (98-107); Estimated GFR-MDRD Greater than 90; Globulin 2.4 g/dL (2.4-3.5); Glucose 78 mg/dL (83-110); Magnesium 2.3 mg/dL (1.6-2.6); Potassium 4.3 mmol/L (3.5-5.1); Protein, Total 5.3 g/dL (5.8-8.1); Sodium 137 mmol/L (136-145)
[2017-05-07 06:04] LABS: Anisocytosis SLIGHT = 6-15 cells (100X) (0-5/hpf); Band 5 % (5-11); Hemoglobin 11.7 g/dL (14.0-18.0); Lymphocytes 11 % (21-51); MDiff Complete? YES; Mean Corpuscular HGB CONC 30.2 g/dL (32.0-36.0); Mean Corpuscular Hemoglobin 27.4 pg (27.0-31.0); Mean Corpuscular Volume 90.5 fl (80.0-94.0); Mean Platelet Volume 9.4 fL (7.4-10.4); Metamyelocyte 1 % (0-0); Monocytes 2 % (0-10); Neutrophil 81 % (42-75); PLT Morphology Comment Appears Decreased; Platelet Count 111 thou/uL (130-400); RBC Distribution Width 18.4 % (11.5-14.5); Red Blood Cell (RBC) Count 4.26 mill/uL (4.70-6.10); White Blood Cell (WBC) Count 8.7 thou/uL (4.8-10.8)
[2017-05-07] MEDS: Furosemide 40 MG/4 ML VIAL SLOW IVP SCH ×2 (06:26→13:45)
[2017-05-07 07:23] LABS: Actual Bicarbonate (HCO3a) 30.4 mEq/L (22-26); Base Excess (BEa) 6.4 mEq/L (0 (+/-) 2.5); CO2 Tension 41.2 mmHg (35.0-45.0); O2 Tension (PaO2) 55.4 mmHg (80.0-100.0); pH, Arterial 7.49 (7.35-7.45)
[2017-05-07 07:24] LABS: Calcium, Ionized 1.2 mmol/L (1.12-1.30); Hematocrit-ABG 35.4 % (42.0-52.0); Hemoglobin (Hb) 10.4 g/dL (14.0-18.0); Puncture Site RBA
--- NOTE | 2017-05-07 08:43 | RAD ---
PORTABLE CHEST 1 VIEW: DATE: 05/07/17. TIME: 5:13 a.m. HISTORY: Respiratory failure. FINDINGS: Comparison is made of previous day. Endotracheal and nasogastric tubes remain in place. A left-side d pacing device is again seen. The heart size is stable. There is pulmonary vascular congestion wit h bilateral pleural effusions and left lower lobe consolidation/atelectatic changes. POS: [facility]
[2017-05-07] MEDS: Pantoprazole 40 MG GRANULES PACKET PO SCH (08:54)
[2017-05-07] MEDS: Polyethylene Glycol 3350 17 GM Packet PO SCH (08:54)
[2017-05-07] MEDS: Cefepime 2 GM in Syringe 12.5 ML SLOW IVP SCH ×2 (08:56→20:03)
[2017-05-07] MEDS: Potassium Chloride 20 MEQ TAB PER TUBE SCH (09:26)
[2017-05-07] MEDS ORDERED: Enoxaparin Sodium 60 MG/0.6 ML SYRINGE SC SCH ×2 (10:45→21:00)
--- NOTE | 2017-05-07 10:58 | PRG ---
DATE OF SERVICE: 05/07/2017 SUBJECTIVE: Mr. Kasper remains intubated on the ventilator. OBJECTIVE: VITAL SIGNS: Blood pressure is 120 systolic. Pulse is 70-80; it is irregular. LUNGS: Clear. CARDIAC: Irregularly irregular. ABDOMEN: Soft, nontender. PERTINENT LABORATORY: His creatinine is 0.7, hemoglobin is 11.1. ASSESSMENT: 1. Congestive heart failure, persistent, diastolic. 2. Chronic obstructive pulmonary disease. 3. Coronary artery disease. PLAN: I have discussed the possibility of cardiac catheterization with the patient's physicians. I would like to talk to the patient's . The patient is high risk of a poor outcome regardless of t herapy and I need to make sure she understands that. If she is agreeable, could proceed with cardiac catheterization tomorrow, but with the understanding that the risk is increased in view of his persi stent poor clinical response to medical therapy for heart failure.
--- NOTE | 2017-05-07 11:03 | PDOC.PN ---
- Subjective Encounter Start Date: 05/07/17 Encounter Start Time: 11:01 Subjective: No new complaints. -: Status remains unchanged overnight. -: Cardiology on board- plan for cath - Objective Resuscitation Status: Resuscitation Status FULL:Full Resuscitation MAR Reviewed: Yes Vital Signs & Weight: Vital Signs (12 hours) Temp Pulse Resp Pulse Ox 05/07/17 10:17 77 05/07/17 08:00 98.6 F 17 05/07/17 07:10 80 05/07/17 06:00 24 H 05/07/17 04:00 98.9 F 24 H 05/07/17 02:41 82 05/07/17 02:40 74 27 H 100 05/07/17 02:00 24 H 05/07/17 00:00 98.0 F 22 H Weight Admit Weight 158 lb Weight 158 lb 11.725 oz Most Recent Monitor Data Heart Rate from ECG 97 NIBP 119/54 NIBP BP-Mean 77 Respiration from ECG 18 SpO2 97 I&O: 05/06/17 05/07/17 05/08/17 06:59 06:59 06:59 Intake Total 3777.5 2384.7 Output Total 1670 2548 1325 Balance 2107.5 -163.3 -1325 Result Diagrams: 05/07/17 05:25 05/07/17 05:25 Additional Labs: Accuchecks 05/06/17 05/06/17 21:54 16:25 POC Glucose 117 H 128 H Phys Exam - Physical Examination HEENT: PERRLA, moist MMs, sclera anicteric Neck: no JVD, supple Respiratory: no wheezing, no rales, no rhonchi, clear to auscultation bilateral with reduced BS globally. Cardiovascular: RRR, no significant murmur, no rub Gastrointestinal: soft, non-tender, no distention, positive bowel sounds Musculoskeletal: no edema, pulses present Intubated but awake. Able to respond to commands and move extremities Dx/Plan (1) Acute hypoxemic respiratory failure Code(s): J96.01 - ACUTE RESPIRATORY FAILURE WITH HYPOXIA Status: Acute Plan: Continue mx Comment: Stable. Previously extubated; reintubated s/p cardiac arrest 05/01. On minimal vent settings. Daily SBT Continue Vancomycin and Cefepime Continue IV steroids. Resp therapy Daily CXR Daily ABG Pulm on board, recs appreciated. (2) Acute on chronic diastolic (congestive) heart failure Code(s): I50.33 - ACUTE ON CHRONIC DIASTOLIC (CONGESTIVE) HEART FAILURE Status : Acute Plan: Continue mx Comment: Improving with diuresis Cardiology on board. Recs appreciated. Scheduled to undergo cath 05/07 (3) Demand ischemia of myocardium Code(s): I24.8 - OTHER FORMS OF ACUTE ISCHEMIC HEART DISEASE Status: Resolved Plan: Cardiology on board. Would like to discuss with patient's spouse to explain risk of proceeding with catheterization Comment: Symptom Free. 2/2 Cardiac arrest. Cardiology on board. Would like to discuss with patient's spouse to explain risk of proceeding with catheterization (4) PNA (pneumonia) Code(s): J18.9 - PNEUMONIA, UNSPECIFIED ORGANISM Status: Acute Qualifiers: Pneumonia type: due to unspecified organism Laterality: bilateral Lung location: unspecified part of lung Qualified Code(s): J18.9 - Pneumonia, unspecified organism Comment: Septic on admission. On vancomycin and Cefepime/ Cx negative. No significant cx growths. f/uID recs. (5) Anemia, normocytic normochromic Code(s): D64.9 - ANEMIA, UNSPECIFIED Status: Chronic Comment: s/p transfusion with PRBC. 2/2 Iron deficiency. Starged on supplementation. Transfuse for Hb < 8 (6) COPD (chronic obstructive pulmonary disease) Status: Chronic Qualifiers: COPD type: unspecified COPD Qualified Code(s): J44.9 - Chronic obstructive pulmonary disease, unspecified Comment: Stable O2 requirements. Not in exacerbartion. Continue RT (7) Coronary artery disease Code(s): I25.10 - ATHSCL HEART DISEASE OF [place] CORONARY ARTERY W/O ANG PCTRS Status: Chronic Comment: with NSTEMI due to demand ischemia. Planned for CATH. Cardiology on board. Would like to discuss with patient's spouse to explain risk of proceeding with catheterization (8) Hypernatremia Code(s): E87.0 - HYPEROSMOLALITY AND HYPERNATREMIA Status: Resolved Comment : Stable. on free water flushes through feeding tube. (9) Thrombocytopenia Code(s): D69.6 - THROMBOCYTOPENIA, UNSPECIFIED Status: Acute Comment: Mild, asymptomatic. No signs of bleeding. SCDs. Monitor (10) Cardiac arrest Code(s): I46.9 - CARDIAC ARREST, CAUSE UNSPECIFIED Status: Resolved Comment : V-fib , converted with defibrilation (11) Hypokalemia Code(s): E87.6 - HYPOKALEMIA Status: Resolved Comment: Repleted. Likely 2/2 diuretics. - Plan cont current plan of care, continue antibiotics, PT/OT, respiratory therapy, DVT proph w/SCDs * .
[2017-05-07] MEDS ORDERED: Communication Order-Pharmacy FS SCH (11:45)
--- NOTE | 2017-05-07 11:50 | PRG ---
DATE OF SERVICE: 05/07/2017 Mr. Kasper as outlined in my previous notes continues to not do well. I discussed the patient with the patient's over the phone and explained to her the cardiac catheterization could be done due to his continued poor response to medications for heart failure. His prognosis is guarded to poor. She understands the risk of cardiac catheterization is being increased based on his overall clinical status, but the patient does not seem to be doing well with the current regimen. I discussed risks o f stroke, heart attack, iodine allergy, loss of blood supply to the leg or kidney. She understands t here is some chance he will not survive this hospitalization. She understands and wishes to proceed.
[2017-05-07] MEDS: Propofol 1,000 MG/100 ML VIAL IV PRN (15:02)
--- NOTE | 2017-05-07 16:19 | PRG ---
DATE OF SERVICE: 05/07/2017 Ranjith remains mechanically ventilated. He is tentatively on a cardiac catheterization schedule for tomorrow. OBJECTIVE: VITAL SIGNS: His heart rate 84, respiratory rate is per mechanical ventilation. Blood pressure 117/ 41. LUNGS: Coarse equal breath sounds. HEART: Regular rhythm. ABDOMEN: Soft. LABORATORY STUDIES: White count 8.7, hemoglobin 11.7, platelets 111. Sodium 137, potassium 4.3, chloride 100, bicarbonate 28, BUN 30, creatinine 0.71. IMPRESSION: 1. Respiratory failure, presumably secondary initially to pneumonia. 2. ? coronary ischemia leading to ventricular tachycardia, ventricular fibrillation and reintubation . 3. ? component of pulmonary edema, noncardiogenic versus cardiogenic. 4. Recent hospitalization with respiratory failure that resolved quickly again bringing up the quest ion of coronary artery disease and ischemia leading to decompensation. 5. Diastolic heart failure. 6. History of atrial fibrillation. PLAN: Cardiac catheterization and then hopefully weaning and extubation after that. I am not sure shaylee e would be a candidate for surgical intervention and we certainly could not really assess that withou t pulmonary function testing or functional bedside testing. Hopefully, something that can be fixed p ercutaneously will be identified tomorrow.
[2017-05-07] MEDS: Vancomycin HCl 1 GM in Premix Bag 1 BAG IVPB SCH (21:34)
[2017-05-08] MEDS: Propofol 1,000 MG/100 ML VIAL IV PRN ×2 (01:58→11:42)
[2017-05-08] MEDS: guaiFENesin 200 MG TAB PO SCH ×6 (04:15→21:12)
[2017-05-08] MEDS: Furosemide 40 MG/4 ML VIAL SLOW IVP SCH ×2 (05:20→15:19)
[2017-05-08 05:57] LABS: #Basophils 0.1 thou/uL (0.0-0.2); #Eosinphils 0.1 thou/uL (0.0-0.7); #Lymphocytes 1.5 thou/uL (1.20-3.40); #Monocytes 0.3 thou/uL (0.11-0.59); #Neutrophils 5.9 thou/uL (1.40-6.50); %Basophils 0.7 % (0.0-1.0); %Eosinophils 1.5 % (0.0-10.0); %Lymphocytes 19.3 % (21.0-51.0); %Monocytes 3.9 % (0.0-10.0); %Neutrophils 74.7 % (42.0-75.0); Hemoglobin 10.3 g/dL (14.0-18.0); Mean Corpuscular HGB CONC 30.2 g/dL (32.0-36.0); Mean Corpuscular Hemoglobin 27.6 pg (27.0-31.0); Mean Corpuscular Volume 91.4 fl (80.0-94.0); Mean Platelet Volume 9.6 fL (7.4-10.4); Platelet Count 135 thou/uL (130-400); Red Blood Cell (RBC) Count 3.73 mill/uL (4.70-6.10); White Blood Cell (WBC) Count 7.9 thou/uL (4.8-10.8)
[2017-05-08 06:10] LABS: ALT (SGPT) 66 U/L (8-55); AST (SGOT) 48 U/L (5-34); Albumin 2.9 g/dL (3.4-4.8); Alkaline Phosphatase 62 U/L (40-150); Anion Gap 12 mmol/L (10-20); BUN (Urea Nitrogen) 27 mg/dL (8.4-25.7); Bilirubin, Total 0.6 mg/dL (0.2-1.2); Calc. Creatinine Clearance 94 mL/min (70-130); Carbon Dioxide 30 mmol/L (23-31); Chloride 100 mmol/L (98-107); Estimated GFR-MDRD Greater than 90; Globulin 2.1 g/dL (2.4-3.5); Glucose 69 mg/dL (83-110); Magnesium 2.1 mg/dL (1.6-2.6); Potassium 3.4 mmol/L (3.5-5.1); Sodium 139 mmol/L (136-145)
[2017-05-08] MEDS: Potassium Chloride 40 MEQ in Sodium Chloride 0.9% 250 ML 250 ML IVPB PRN (07:13)
--- NOTE | 2017-05-08 08:16 | RAD ---
PORTABLE UPRIGHT FRONTAL CHEST RADIOGRAPH: Date: 05-08-17 Comparison: 05-07-17 History: Ventilated CCU patient. FINDINGS: Stable endotracheal tube and nasogastric tube. Hazy bibasilar pleural and parenchymal opacity again n oted. Pulmonary vascular congestion noted. Stable transvenous pacing device. IMPRESSION: Stable lines and tubes. Stable perihilar and bibasilar densities suggest pulmonary edema. Infectious pneumonitis cannot be excluded. Follow up to resolution advised. POS: [facility]
[2017-05-08] MEDS ORDERED: Sodium Chloride 0.9% 200 ML IV SCH (09:15)
[2017-05-08] MEDS: Pantoprazole 40 MG GRANULES PACKET PO SCH (10:49)
[2017-05-08] MEDS: Cefepime 2 GM in Syringe 12.5 ML SLOW IVP SCH ×2 (10:49→21:11)
[2017-05-08] MEDS: Polyethylene Glycol 3350 17 GM Packet PO SCH (10:50)
[2017-05-08] MEDS ORDERED: Iopamidol 370 76% 100 ML VIAL ONE (11:54)
--- NOTE | 2017-05-08 14:23 | PDOC.PN ---
- Subjective Encounter Start Date: 05/08/17 Encounter Start Time: 14:21 Subjective: No acute overnight events. -: Had LHC, correctional officer lieutenant reports~ 90% calcified blockage L main, unstentable - Objective Resuscitation Status: Resuscitation Status FULL:Full Resuscitation MAR Reviewed: Yes Vital Signs & Weight: Vital Signs (12 hours) Temp Pulse Resp BP Pulse Ox 05/08/17 12:00 12 05/08/17 11:30 74 104/42 L 05/08/17 11:29 73 17 100 05/08/17 11:00 98.1 F 05/08/17 10:00 13 05/08/17 09:15 98.4 F 79 16 100 05/08/17 08:00 16 05/08/17 07:00 98.4 F 05/08/17 05:16 16 05/08/17 04:00 98 F 05/08/17 03:56 14 05/08/17 03:08 78 15 100 Weight Admit Weight 158 lb Weight 158 lb 4.67 oz Most Recent Monitor Data Heart Rate from ECG 72 NIBP 92/41 NIBP BP-Mean 60 Respiration from ECG 17 SpO2 100 I&O: 05/07/17 05/08/17 05/09/17 06:59 06:59 06:59 Intake Total 2384.7 2152.5 250 Output Total 2548 3641 590 Balance -163.3 -1488.5 -340 Result Diagrams: 05/08/17 Unknown 05/08/17 Unknown Additional Labs: Accuchecks 05/08/17 05/08/17 05/08/17 11:15 06:42 06:22 POC Glucose 74 101 58 L* 05/07/17 05/07/17 21:34 16:32 POC Glucose 110 132 H Radiology Reviewed by me: Yes (Stable perihilar and peribasilar densities) Phys Exam - Physical Examination Constitutional: NAD HEENT: PERRLA, moist MMs, sclera anicteric Neck: supple, full ROM Respiratory: no wheezing, no rales reduced Breath sounds b/l Cardiovascular: RRR, no significant murmur, no rub Gastrointestinal: soft, non-tender, no distention, positive bowel sounds Musculoskeletal: no edema, pulses present Neurological: moves all 4 limbs Intubated but able to respond to commands and responds w head gestures. Skin: no rash, normal turgor Dx/Plan (1) Coronary artery disease Code(s): I25.10 - ATHSCL HEART DISEASE OF [place] CORONARY ARTERY W/O ANG PCTRS Status: Chronic Qualifiers: Coronary Disease-Associated Artery/Lesion type: due to calcified coronary lesion Qualified Code(s): I25.10 - Atherosclerotic heart disease of [place] coronary artery without angina pectoris; I25.84 - Coronary atherosclerosis due to calcified coronary lesion; I25.84 - Coronary atherosclerosis due to calcified coronary lesion; I25.84 - Coronary atherosclerosis due to calcified coronary lesion Plan: Continue current management/ Comment: with NSTEMI due to demand ischemia. CATH showed ~90% blockage L main, calcified and unstentable per cardiology Very poor prognosis as patient's clinical condition precluded CABG. Cardiology discussed extensively with family. (2) Acute hypoxemic respiratory failure Code(s): J96.01 - ACUTE RESPIRATORY FAILURE WITH HYPOXIA Status: Acute Plan: Intubated. Continue bronchodilator therapy. SBT Daily CXR Daily ABG Pulm on board, recs appreciated. Continue antibiotics. Comment: Stable. Previously extubated; reintubated s/p cardiac arrest 05/01. On minimal vent settings. Daily SBT Continue Vancomycin and Cefepime Continue IV steroids. Resp therapy Daily CXR Daily ABG Pulm on board, recs appreciated. (3) Acute on chronic diastolic (congestive) heart failure Code(s): I50.33 - ACUTE ON CHRONIC DIASTOLIC (CONGESTIVE) HEART FAILURE Status : Acute Comment: Stable. Cardiology on board. Recs appreciated. Continued on IV furosemide. (4) PNA (pneumonia) Code(s): J18.9 - PNEUMONIA, UNSPECIFIED ORGANISM Status: Acute Qualifiers: Pneumonia type: due to unspecified organism Laterality: bilateral Lung location: unspecified part of lung Qualified Code(s): J18.9 - Pneumonia, unspecified organism Plan: Confer with ID per antibiotics duration of treatment. Comment: Septic on admission. On vancomycin and Cefepime/ Cx negative. No significant cx growths. f/u ID recs. (5) Anemia, normocytic normochromic Code(s): D64.9 - ANEMIA, UNSPECIFIED Status: Chronic Plan: Stable. Monitor. Comment: s/p transfusion with PRBC. 2/2 Iron deficiency. Starged on supplementation. Transfuse for Hb < 8 (6) COPD (chronic obstructive pulmonary disease) Status: Chronic Qualifiers: COPD type: unspecified COPD Qualified Code(s): J44.9 - Chronic obstructive pulmonary disease, unspecified Comment: Stable O2 requirements. Not in exacerbartion. Continue RT (7) Hypernatremia Code(s): E87.0 - HYPEROSMOLALITY AND HYPERNATREMIA Status: Resolved Comment : Stable. on free water flushes through feeding tube. (8) Thrombocytopenia Code(s): D69.6 - THROMBOCYTOPENIA, UNSPECIFIED Status: Acute Plan: Monitor. Platelets trending downwards but no signs of acute bleeding. Pt on Enoxaparin BID for NSTEMI. Would confer with cardiology- ? discontinuing Lovenox. Comment: Mild, asymptomatic. No signs of bleeding. SCDs. Monitor (9) Cardiac arrest Code(s): I46.9 - CARDIAC ARREST, CAUSE UNSPECIFIED Status: Resolved Comment : V-fib , converted with defibrilation to sinus (10) Hypokalemia Code(s): E87.6 - HYPOKALEMIA Status: Resolved Comment: Repleted. Likely 2/2 diuretics. - Plan cont current plan of care, continue antibiotics, PT/OT, respiratory therapy, DVT proph w/lovenox, DVT proph w/SCDs Continue antibiotics -: Family meeting regarding goals of care. * .
[2017-05-08 22:35] LABS: Vancomycin, Trough 23.9 ug/mL
[2017-05-08] MEDS: Vancomycin HCl 1 GM in Premix Bag 1 BAG IVPB SCH (22:52)
--- NOTE | 2017-05-08 22:57 | CON ---
DATE OF CONSULTATION: 05/08/2017. DATE OF ADMISSION: 04/23/2017. REASON FOR CONSULTATION: Evaluate the patient for coronary artery bypass grafting. HISTORY OF PRESENT ILLNESS: Mr. Kasper is a 77-year-old gentleman who has been in the hospital, int [facility], and has had a V-Fib arrest. He underwent catheterization today, which shows 3-vessel disease . I have been asked to see him to consider coronary artery bypass grafting. After discussion with the , the patient is currently oxygen dependent at home. He really only ge ts around very minimally without a wheelchair or scooter. He does little to no walking due to his pu lmonary status. He has chronic COPD. He has known peripheral vascular and carotid disease. Current ly, he is intubated on the ventilator. His heart rhythm is paced. He has a blood pressure of 116/59 and oxygen saturation of 100%. PAST MEDICAL HISTORY: 1. Coronary artery disease. 2. Congestive heart failure. 3. Cardiomyopathy. 4. Chronic atrial fibrillation. 5. Diabetes mellitus. 6. Hypertension. 7. Chronic obstructive pulmonary disease. 8. Asthma. 9. History of left lower lobe pneumonia. 10. History of pacemaker placement. ALLERGIES: None. CURRENT MEDICATIONS: Noted. REVIEW OF SYSTEMS: Not performed as the patient is intubated on the ventilator. PHYSICAL EXAMINATION: VITAL SIGNS: As above. LUNGS: Have distant breath sounds bilaterally. HEART: Rhythm is paced. ABDOMEN: Soft and nontender. EXTREMITIES: No edema. DIAGNOSTIC DATA: I have reviewed his chest x-ray series and he has obvious COPD. He has bilateral s mall effusions. I have reviewed his cath films. ASSESSMENT AND PLAN: This is an unfortunate 77-year-old gentleman whose pulmonary status makes him r eally not amenable to any surgical intervention at all. I have discussed this with his . She un derstands that without surgery, he is likely to and with surgery, he is more than likely if he berger rvives going to end up in a long-term care facility, which he would not want. I will discuss this fu rther with Dr. Powers and Dr. Anderson tomorrow.
[2017-05-09] MEDS: guaiFENesin 200 MG TAB PO SCH ×6 (01:34→20:35)
--- NOTE | 2017-05-09 01:58 | PRG ---
DATE OF SERVICE: 05/08/2017 SUBJECTIVE: Mr. Kasper underwent cardiac catheterization. He has critical left main lesion. He awakens and follows commands, and he moves all extremities. His lungs, heart, and abdomen are unchanged. LABORATORY DATA: White count 7.9, hemoglobin 10.3, platelets 135. Sodium 139, potassium 3.4, chloride 100, bicarbonate 30, BUN 27, creatinine 0.67 , glucose 69. I discussed the findings with his . I have not so far been able to figure out it how functional it was. His has continued to tell me that he was doing great, but more I questioned her today, the more I became aware that he was minimally functional. Last fall, he could go out in the yard and work in the garden a little bit, but he took an oxygen tank with him. After his recent hospitalization at [facility], he went shopping with his , but had to get the scooter cart to get him in from the parking lot. He was unable to walk in from the parking lot. I think his functional status is the biggest risk factor for surviving a surgery. Most importantly, I asked his if she thought he would want to go through a surgery and she informed me she did not. We will continue to do our due diligence and let Cardiothoracic Surgery to assess him and then if we all decide that surgery is not in his best interest from a survivability standpoint , we will proceed with extubation tomorrow and comfort care hopefully. TOLU
[2017-05-09] MEDS: Furosemide 40 MG/4 ML VIAL SLOW IVP SCH ×2 (05:18→13:49)
[2017-05-09 05:33] LABS: ALT (SGPT) 75 U/L (8-55); AST (SGOT) 47 U/L (5-34); Albumin 2.9 g/dL (3.4-4.8); Alkaline Phosphatase 66 U/L (40-150); Anion Gap 11 mmol/L (10-20); BUN (Urea Nitrogen) 32 mg/dL (8.4-25.7); Bilirubin, Total 0.9 mg/dL (0.2-1.2); Calc. Creatinine Clearance 85 mL/min (70-130); Calcium 8.8 mg/dL (7.8-10.44); Carbon Dioxide 29 mmol/L (23-31); Chloride 102 mmol/L (98-107); Estimated GFR-MDRD Greater than 90; Glucose 90 mg/dL (83-110); Magnesium 2.2 mg/dL (1.6-2.6); Potassium 3.4 mmol/L (3.5-5.1); Protein, Total 4.9 g/dL (5.8-8.1); Sodium 139 mmol/L (136-145)
[2017-05-09 05:58] LABS: Band 13 % (5-11); Eosinophils 1 % (0-10); Hemoglobin 10.1 g/dL (14.0-18.0); Lymphocytes 9 % (21-51); MDiff Complete? YES; Mean Corpuscular HGB CONC 31.7 g/dL (32.0-36.0); Mean Corpuscular Hemoglobin 28.7 pg (27.0-31.0); Mean Corpuscular Volume 90.5 fl (80.0-94.0); Mean Platelet Volume 9.1 fL (7.4-10.4); Monocytes 1 % (0-10); Neutrophil 76 % (42-75); PLT Morphology Comment Appears Decreased; Platelet Count 127 thou/uL (130-400); RBC Distribution Width 19.3 % (11.5-14.5); Red Blood Cell (RBC) Count 3.51 mill/uL (4.70-6.10); White Blood Cell (WBC) Count 8.1 thou/uL (4.8-10.8)
[2017-05-09 07:49] LABS: Actual Bicarbonate (HCO3a) 29.3 mEq/L (22-26); Analyzer IN Cardio ER; Base Excess (BEa) 6.9 mEq/L (0 (+/-) 2.5); CO2 Tension 33.5 mmHg (35.0-45.0); Calcium, Ionized 1.2 mmol/L (1.12-1.30); Hematocrit-ABG 31.4 % (42.0-52.0); Hemoglobin (Hb) 9.7 g/dL (14.0-18.0); O2 Tension (PaO2) 66.4 mmHg (80.0-100.0); pH, Arterial 7.56 (7.35-7.45)
[2017-05-09 07:50] LABS: ALV-art Gradient 107.125 (0-20); Puncture Site L.R.
[2017-05-09] MEDS: Scopolamine 1.5 mg/72 hour Patch TD SCH (08:14)
[2017-05-09] MEDS: Pantoprazole 40 MG GRANULES PACKET PO SCH (08:14)
[2017-05-09] MEDS: Polyethylene Glycol 3350 17 GM Packet PO SCH (08:14)
--- NOTE | 2017-05-09 08:20 | RAD ---
PORTABLE UPRIGHT FRONTAL CHEST RADIOGRAPH: Date: 05-09-17 Comparison: 05-08-17 History: Ventilated CCU patient. FINDINGS: Stable dual-lead transvenous pacing device. There is dense opacity in the left base suggesting left l ower lobe consolidation/collapse and possible left pleural fluid. Hazy density in the right lung base may represent pleural fluid as well. Nasogastric tube in place. There is an endotracheal tube noted, distal tip near the region of the trever, which is difficult to visualize secondary to technique. Endotracheal tube is probably within the 1-2 cm of the trever and c ould be retracted by approximately 2.5-3 cm. No pneumothorax is seen. IMPRESSION: Lines and tubes as above. Endotracheal tube is somewhat low lying and should be slightly retracted. P ersistent basilar opacity noted. Results called to ICU staff to be relayed to the covering nurseMary Jo. Call placed at 7:50 a.m. 05-09. Code CR POS: [facility]
[2017-05-09] MEDS: Cefepime 2 GM in Syringe 12.5 ML SLOW IVP SCH (08:24)
[2017-05-09] MEDS ORDERED: Vancomycin HCl 750 MG in Sodium Chloride 0.9% 250 ML 250 ML IVPB SCH (09:00)
--- NOTE | 2017-05-09 14:01 | PDOC.PN ---
- Subjective Encounter Start Date: 05/09/17 Encounter Start Time: 14:09 Subjective: No acute events overnight. -: Cath yesterday 90% disease in L main - Objective Resuscitation Status: Resuscitation Status FULL:Full Resuscitation MAR Reviewed: Yes Vital Signs & Weight: Vital Signs (12 hours) Temp Pulse Pulse Pulse Resp BP BP 05/09/17 12:00 20 05/09/17 11:15 90 83 112/41 L 05/09/17 11:00 99.3 F 05/09/17 10:13 95 124/33 L 05/09/17 10:00 26 H 05/09/17 08:00 99.3 F 86 15 05/09/17 07:00 99.9 F H 87 136/51 L 05/09/17 06:00 19 05/09/17 04:00 98.8 F 20 05/09/17 02:00 21 H BP Pulse Ox 05/09/17 12:00 05/09/17 11:15 101/34 L 05/09/17 11:00 05/09/17 10:13 05/09/17 10:00 05/09/17 08:00 98 05/09/17 07:00 05/09/17 06:00 05/09/17 04:00 05/09/17 02:00 Weight Admit Weight 158 lb Weight 152 lb 12.485 oz Most Recent Monitor Data Heart Rate from ECG 85 NIBP 117/47 NIBP BP-Mean 92 Respiration from ECG 22 SpO2 98 I&O: 05/08/17 05/09/17 05/10/17 06:59 06:59 06:59 Intake Total 2152.5 2271.9 640 Output Total 3641 2525 955 Balance -1488.5 -253.1 -315 Result Diagrams: 05/09/17 04:37 05/09/17 04:37 Additional Labs: Accuchecks 05/09/17 05/09/17 05/08/17 11:44 04:41 21:16 POC Glucose 140 H 94 114 H 05/08/17 15:47 POC Glucose 105 Phys Exam - Physical Examination Constitutional: NAD HEENT: PERRLA, moist MMs, sclera anicteric Neck: no JVD, supple Respiratory: no wheezing, no rales, no rhonchi, clear to auscultation bilateral Decreased sounds b/l Cardiovascular: RRR, no significant murmur, no rub Gastrointestinal: soft, non-tender, no distention, positive bowel sounds Musculoskeletal: no edema Neurological: non-focal following connands with gestures and head movement. Skin: no rash, normal turgor Dx/Plan (1) Coronary artery disease Code(s): I25.10 - ATHSCL HEART DISEASE OF [place] CORONARY ARTERY W/O ANG PCTRS Status: Chronic Qualifiers: Coronary Disease-Associated Artery/Lesion type: due to calcified coronary lesion Qualified Code(s): I25.10 - Atherosclerotic heart disease of [place] coronary artery without angina pectoris; I25.84 - Coronary atherosclerosis due to calcified coronary lesion; I25.84 - Coronary atherosclerosis due to calcified coronary lesion; I25.84 - Coronary atherosclerosis due to calcified coronary lesion Comment: CATH showed ~90% blockage L main, calcified and unstentable per cardiology Very poor prognosis as patient's clinical condition precluded CABG. Cardiology discussed extensively with family. Possible hospice discussed. Will f/u with family. (2) Acute hypoxemic respiratory failure Code(s): J96.01 - ACUTE RESPIRATORY FAILURE WITH HYPOXIA Status: Acute Comment: Stable but still on the vent. Previously extubated; reintubated s/p cardiac arrest 05/01. On minimal vent settings. Daily SBT Will discontinue Vancomycin and Cefepime Continue IV steroids. Resp therapy Daily CXR Daily ABG Pulm on board, recs appreciated. Will attempt weaning off vent (3) Acute on chronic diastolic (congestive) heart failure Code(s): I50.33 - ACUTE ON CHRONIC DIASTOLIC (CONGESTIVE) HEART FAILURE Status : Acute Comment: Stable. Cardiology on board. Recs appreciated. Continued on IV furosemide. Achieving negative fluid balance. (4) PNA (pneumonia) Code(s): J18.9 - PNEUMONIA, UNSPECIFIED ORGANISM Status: Resolved Qualifiers: Pneumonia type: due to unspecified organism Laterality: bilateral Lung location: unspecified part of lung Qualified Code(s): J18.9 - Pneumonia, unspecified organism Plan: As above. Comment: Septic on admission, placed on vancomycin and Cefepime/ Cx negative. No significant cx growths. : Will discontinue Vancomycin and Cefepime (5) Anemia, normocytic normochromic Code(s): D64.9 - ANEMIA, UNSPECIFIED Status: Chronic Plan: Stable. Monitor. Comment: s/p transfusion with PRBC. 2/2 Iron deficiency. Starged on supplementation. Transfuse for Hb < 8 (6) COPD (chronic obstructive pulmonary disease) Status: Chronic Qualifiers: COPD type: unspecified COPD Qualified Code(s): J44.9 - Chronic obstructive pulmonary disease, unspecified Comment: Stable O2 requirements. Not in exacerbartion. Continue RT, nebs (7) Hypernatremia Code(s): E87.0 - HYPEROSMOLALITY AND HYPERNATREMIA Status: Resolved Comment : Stable. on free water flushes through feeding tube. (8) Thrombocytopenia Code(s): D69.6 - THROMBOCYTOPENIA, UNSPECIFIED Status: Acute Plan: Stable. Will monitor. Comment: Mild, asymptomatic. No signs of bleeding. SCDs. Enoxaparin discontinued. (9) Cardiac arrest Code(s): I46.9 - CARDIAC ARREST, CAUSE UNSPECIFIED Status: Resolved Comment : V-fib , converted with defibrilation to sinus (10) Hypokalemia Code(s): E87.6 - HYPOKALEMIA Status: Resolved Comment: Repleted. Likely 2/2 diuretics. - Plan cont current plan of care, PT/OT, social worker * .
[2017-05-10] MEDS: guaiFENesin 200 MG TAB PO SCH ×6 (00:26→20:04)
[2017-05-10] MEDS: Furosemide 40 MG/4 ML VIAL SLOW IVP SCH ×2 (06:05→15:30)
--- NOTE | 2017-05-10 06:31 | PRG ---
DATE OF SERVICE: 05/09/2017 SUBJECTIVE: Mr. Kasper is doing well overnight. He is lot awake this morning. He was placed on p ressure support, 5 of PEEP and 5 of pressure support. He did well with that. He passed the leak soniya t. His minute volume is 8 L a minute. stable overnight. He has had no ventricular arrhythmia. OBJECTIVE: VITAL SIGNS: He is afebrile. Heart rate was 82, respiratory rate 24, saturation 95 since he has bee n extubated and was close to 100% intubated. LUNGS: Clear. HEART: Regular rhythm. ABDOMEN: Soft. EXTREMITIES: Without asymmetry. Chest radiograph still is abnormal, have not cleared completely. Cardiothoracic Surgery assessed and it was felt that he is not a candidate for operative procedure be cause of his unlikely chance of postop recovery and weaning from mechanical ventilation. His pH today is 7.56, pCO2 of 33, and pO2 of 66. The answered all his questions. I was actually talking to Mr. Kasper prior to extubation about re-intubation. He very quickly told me no. He never wanted to be intubated again, so he is now a D O NOT RESUSCITATE patient. Subsequently, he has been extubated and has been evaluated multiple times this afternoon and has done well since post-extubation. He has been in no distress. IMPRESSION: 1. Pneumonia. 2. Respiratory failure. 3. Underlying obstructive lung disease, on oxygen. 4. Chronic respiratory failure, on home O2 with acute exacerbation of his pneumonia. 5. Ventricular fibrillation and ventricular tachycardia secondary to left main coronary disease. 6. Inoperable left main coronary disease. 7. Deconditioning. Traveling in a scooter to the grocery store and ambulating very little around e house with oxygen. PLAN: Transfer out of the ICU for supportive care. Hopefully, he will regain some degree of the fun ctional status. Met with the and answered all her questions. Critical care time was 30 minutes.
[2017-05-10 06:41] LABS: Hemoglobin 10.9 g/dL (14.0-18.0); Mean Corpuscular Hemoglobin 28.6 pg (27.0-31.0); Mean Corpuscular Volume 92.3 fl (80.0-94.0); Mean Platelet Volume 8.5 fL (7.4-10.4); Platelet Count 146 thou/uL (130-400); RBC Distribution Width 19.9 % (11.5-14.5); Red Blood Cell (RBC) Count 3.82 mill/uL (4.70-6.10); White Blood Cell (WBC) Count 7.3 thou/uL (4.8-10.8)
[2017-05-10 06:56] LABS: Eosinophils 1 % (0-10); Lymphocytes 18 % (21-51); MDiff Complete? YES; Monocytes 5 % (0-10); Neutrophil 76 % (42-75)
[2017-05-10 07:04] LABS: ALT (SGPT) 78 U/L (8-55); AST (SGOT) 46 U/L (5-34); Albumin 3.3 g/dL (3.4-4.8); Alkaline Phosphatase 78 U/L (40-150); Anion Gap 11 mmol/L (10-20); BUN (Urea Nitrogen) 24 mg/dL (8.4-25.7); Bilirubin, Total 0.9 mg/dL (0.2-1.2); Calc. Creatinine Clearance 89 mL/min (70-130); Calcium 9.3 mg/dL (7.8-10.44); Carbon Dioxide 32 mmol/L (23-31); Chloride 99 mmol/L (98-107); Estimated GFR-MDRD Greater than 90; Globulin 2.3 g/dL (2.4-3.5); Glucose 93 mg/dL (83-110); Magnesium 2.3 mg/dL (1.6-2.6); Potassium 3.2 mmol/L (3.5-5.1); Protein, Total 5.6 g/dL (5.8-8.1); Sodium 139 mmol/L (136-145)
[2017-05-10] MEDS: Pantoprazole 40 MG GRANULES PACKET PO SCH (08:02)
[2017-05-10] MEDS: Polyethylene Glycol 3350 17 GM Packet PO SCH (08:02)
[2017-05-10] MEDS: Diltiazem 125 MG in Sodium Chloride 0.9% 100 ML IVPB SCH (09:18)
[2017-05-10] MEDS: Potassium Chloride 20 MEQ TAB PO SCH ×2 (10:21→17:29)
--- NOTE | 2017-05-10 10:30 | PRG ---
DATE OF SERVICE: 05/10/2017 SUBJECTIVE: Mr. Kasper is extubated today. PHYSICAL EXAMINATION: GENERAL: He is alert, but mildly confused. VITAL SIGNS: Blood pressure 146/74, pulse 90 with atrial fibrillation. LUNGS: Clear. CARDIAC: Irregularly irregular. ABDOMEN: Soft and nontender. ASSESSMENT: 1. Severe calcified left main stenosis, inoperable. 2. Normal left ventricular systolic function. 3. Chronic obstructive pulmonary disease. 4. Chronic atrial fibrillation. PLAN: 1. We will resume Lovenox tomorrow morning. 2. Need to control the heart rate. We will give diltiazem intravenously. 3. Prognosis is very poor. The patient has been turned down for surgery.
--- NOTE | 2017-05-10 12:51 | PDOC.PN ---
- Subjective Encounter Start Date: 05/10/17 Encounter Start Time: 12:54 Subjective: Extubated yesterday. Alert but not fullt oriented today. -: No acute events overnight. Tolerating NC oxygen - Objective Resuscitation Status: Resuscitation Status DNR:Do Not Resuscitate Vital Signs & Weight: Vital Signs (12 hours) Temp Pulse Resp Pulse Ox 05/10/17 12:00 98.0 F 05/10/17 10:45 87 20 95 05/10/17 08:00 98.2 F 93 21 H 95 05/10/17 07:42 97 05/10/17 07:40 93 21 H 98 05/10/17 07:00 97.9 F 05/10/17 04:00 98.1 F 05/10/17 02:16 81 22 H 95 Weight Admit Weight 158 lb Weight 152 lb 1.903 oz Most Recent Monitor Data Heart Rate from ECG 85 NIBP 120/46 NIBP BP-Mean 78 Respiration from ECG 28 SpO2 97 I&O: 05/09/17 05/10/17 05/11/17 06:59 06:59 06:59 Intake Total 2271.9 1945 240 Output Total 2525 2715 880 Balance -253.1 -770 -640 Result Diagrams: 05/10/17 06:33 05/10/17 06:33 Additional Labs: Accuchecks 05/10/17 05/10/17 05/09/17 10:31 04:55 20:46 POC Glucose 103 78 97 05/09/17 17:06 POC Glucose 134 H Phys Exam - Physical Examination Constitutional: NAD HEENT: PERRLA, moist MMs, sclera anicteric Neck: no JVD, supple, full ROM Respiratory: no wheezing, no rales, no rhonchi, clear to auscultation bilateral Cardiovascular: RRR, no significant murmur, no rub Gastrointestinal: soft, non-tender, no distention, positive bowel sounds Musculoskeletal: no edema, pulses present Neurological: non-focal, moves all 4 limbs Psychiatric: normal affect Deviation from normal: A&O x 1 Skin: no rash, normal turgor Dx/Plan (1) Coronary artery disease Code(s): I25.10 - ATHSCL HEART DISEASE OF [place] CORONARY ARTERY W/O ANG PCTRS Status: Chronic Qualifiers: Coronary Disease-Associated Artery/Lesion type: due to calcified coronary lesion Qualified Code(s): I25.10 - Atherosclerotic heart disease of [place] coronary artery without angina pectoris; I25.84 - Coronary atherosclerosis due to calcified coronary lesion; I25.84 - Coronary atherosclerosis due to calcified coronary lesion; I25.84 - Coronary atherosclerosis due to calcified coronary lesion Comment: CATH showed inoperable lesion (~90% blockage L main, calcified) Very poor prognosis as patient's clinical condition precluded CABG. Cardiology discussed extensively with family. Possible hospice discussed. Will f/u with family. (2) Acute hypoxemic respiratory failure Code(s): J96.01 - ACUTE RESPIRATORY FAILURE WITH HYPOXIA Status: Resolved Comment: Stable. Extubated 05/09/ He had been reintubated s/p cardiac arrest 05/01. On minimal vent settings. Daily SBT Continue IV steroids. Resp therapy Pulm on board, recs appreciated. (3) Acute on chronic diastolic (congestive) heart failure Code(s): I50.33 - ACUTE ON CHRONIC DIASTOLIC (CONGESTIVE) HEART FAILURE Status : Acute Comment: Stable. Cardiology on board. Recs appreciated. Continued on IV furosemide. Achieving negative fluid balance. (4) Anemia, normocytic normochromic Code(s): D64.9 - ANEMIA, UNSPECIFIED Status: Chronic Comment: s/p transfusion with PRBC. 2/2 Iron deficiency. Starged on supplementation. Transfuse for Hb < 8 (5) COPD (chronic obstructive pulmonary disease) Status: Chronic Qualifiers: COPD type: unspecified COPD Qualified Code(s): J44.9 - Chronic obstructive pulmonary disease, unspecified Comment: Stable O2 requirements. Not in exacerbartion. Continue RT, nebs (6) Thrombocytopenia Code(s): D69.6 - THROMBOCYTOPENIA, UNSPECIFIED Status: Acute Comment: Mild, asymptomatic. No signs of bleeding. SCDs. Enoxaparin discontinued. (7) Hypernatremia Code(s): E87.0 - HYPEROSMOLALITY AND HYPERNATREMIA Status: Resolved Comment : Stable. on free water flushes through feeding tube. (8) Cardiac arrest Code(s): I46.9 - CARDIAC ARREST, CAUSE UNSPECIFIED Status: Resolved Comment : V-fib , converted with defibrilation to sinus (9) Hypokalemia Code(s): E87.6 - HYPOKALEMIA Status: Acute Comment: Repleted. Likely 2/2 diuretics. (10) PNA (pneumonia) Code(s): J18.9 - PNEUMONIA, UNSPECIFIED ORGANISM Status: Resolved Qualifiers: Pneumonia type: due to unspecified organism Laterality: bilateral Lung location: unspecified part of lung Qualified Code(s): J18.9 - Pneumonia, unspecified organism Comment: Resolved. Septic on admission, placed on vancomycin and Cefepime/ Cx negative. No significant cx growths. Vancomycin and Cefepime discontinued 05/09 - Plan cont current plan of care, PT/OT * .
--- NOTE | 2017-05-10 19:07 | PRG ---
DATE OF SERVICE: 05/10/2017 SUBJECTIVE: Mr. Kasper was started on some IV Cardizem. This morning, his heart rate was in the 90s, in atrial fibrillation. He denied having any shortness of breath. OBJECTIVE: LUNGS: Surprisingly clear anteriorly and laterally. HEART: Irregularly irregular. ABDOMEN: Soft and nontender. LABORATORY DATA: White count 7.3, hemoglobin 10.9, platelets 146. Sodium 139, potassium 3.2, chloride 99, bicarbonate 32, BUN 24, creatinine 0.68. Last glucose 124. IMPRESSION: 1. Respiratory failure associated with ventricular fibrillation, ventricular tachycardia, and left main coronary disease. 2. Probable right lower lobe pneumonia on presentation. 3. Deconditioning. 4. Underlying obstructive lung disease. 5. Acute on chronic respiratory failure with chronic hypoxemia, on home oxygen therapy. 6. Status post intubation at [facility] recently. He was only able to get around in a scooter when he went to the [facility] recently. He cannot walk very far. PLAN: Slow physical therapy. Could start him on p.o. Cardizem since he is swallowing well at 30 mg 3 times a day, and then perhaps Cardizem can be weaned off and we can consider going to a skilled facility. 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 TOLU
[2017-05-11] MEDS: guaiFENesin 200 MG TAB PO SCH ×6 (03:56→21:13)
[2017-05-11 04:59] LABS: Anion Gap 13 mmol/L (10-20); BUN (Urea Nitrogen) 21 mg/dL (8.4-25.7); Calc. Creatinine Clearance 85 mL/min (70-130); Calcium 9.3 mg/dL (7.8-10.44); Carbon Dioxide 29 mmol/L (23-31); Chloride 102 mmol/L (98-107); Estimated GFR-MDRD Greater than 90; Glucose 79 mg/dL (83-110); Sodium 140 mmol/L (136-145)
[2017-05-11 05:30] LABS: Band 7 % (5-11); Eosinophils 2 % (0-10); Hemoglobin 10.5 g/dL (14.0-18.0); Lymphocytes 23 % (21-51); MDiff Complete? YES; Mean Corpuscular HGB CONC 30.8 g/dL (32.0-36.0); Mean Corpuscular Hemoglobin 28.8 pg (27.0-31.0); Mean Corpuscular Volume 93.6 fl (80.0-94.0); Mean Platelet Volume 8.7 fL (7.4-10.4); Monocytes 3 % (0-10); Neutrophil 65 % (42-75); Platelet Count 172 thou/uL (130-400); RBC Distribution Width 20.2 % (11.5-14.5); Red Blood Cell (RBC) Count 3.65 mill/uL (4.70-6.10); White Blood Cell (WBC) Count 6.6 thou/uL (4.8-10.8)
[2017-05-11] MEDS: Furosemide 40 MG/4 ML VIAL SLOW IVP SCH ×2 (05:37→15:07)
--- NOTE | 2017-05-11 08:47 | PRG ---
DATE OF SERVICE: 05/11/2017 Mr. Kasper is awake and alert today. He knows his name is Saji. He does not know where he is or wh at year it is. He does follow commands. PHYSICAL EXAMINATION: VITAL SIGNS: Blood pressure 132/43, pulse is 80, it is irregular. He is still on intravenous diltia zem. LUNGS: Clear. CARDIAC: Irregular, irregular. ABDOMEN: Soft, nontender. ASSESSMENT: 1. Severe left main stenosis, heavily calcified. 2. Inoperable due to pulmonary status. 3. Atrial fibrillation, paroxysmal. PLAN: 1. He is back on Lovenox. 2. Transition to oral diltiazem. CURRENT STATUS: Do not resuscitate. I spoke with Dr. Anderson today about the possibility of getting an opinion from a senior applications architect in [facility] [place] on about whether high risk intervention could be considered. Would probably require rotablader of th e left main unprotected, most likely could not protect the circumflex. Dr. Anderson is not certain that the patient or family would be interested in that. For now, we will continue medical therapy. Cont inue to follow. Prognosis is obviously is poor in this unfortunate gentleman.
[2017-05-11] MEDS: Diltiazem 125 MG in Sodium Chloride 0.9% 100 ML IVPB SCH (09:15)
[2017-05-11] MEDS: Enoxaparin Sodium 60 MG/0.6 ML SYRINGE SC SCH ×2 (09:21→21:25)
[2017-05-11] MEDS: Pantoprazole 40 MG GRANULES PACKET PO SCH (09:23)
[2017-05-11] MEDS: Polyethylene Glycol 3350 17 GM Packet PO SCH (09:23)
[2017-05-11] MEDS: Potassium Chloride 20 MEQ TAB PO SCH (09:24)
--- NOTE | 2017-05-11 13:49 | PRG ---
DATE OF SERVICE: 05/11/2017 SUBJECTIVE: Mr. Kasper is stable. He is a little confused today. OBJECTIVE: VITAL SIGNS: He is afebrile. Heart 79, respiratory rate 18 and oximetry is 97% on 2 liters. LUNGS: Clear. HEART: Regular rhythm. ABDOMEN: Soft. IMPRESSION: 1. Status post respiratory failure, presumably triggered by pneumonia. 2. Left main coronary disease with calcified 95% left main lesion. 3. Status post ventricular fibrillation followed by ventricular tachycardia. In this admission the ventricular fibrillation was while after he was extubated. Ventricular tachycardia was while he was intubated. 4. Underlying obstructive lung disease. 5. Chronic respiratory failure, on home oxygen with acute exacerbation. 6. Extreme deconditioning, unable to ambulate in from the parking lot recently. 7. Recent intubation at home, which led to his admission here and then reintubation when he had vent ricular fibrillation here. PLAN: Continue supportive care. Dr. Powers was contemplating whether somebody might want to try per cutaneous intervention of this left main lesion. It would be a significant increase over average cat heterization mortality. It is unclear whether or not he would want to go through this and we can darryl lly ask him now since he is not really of sound mind. His has implied that he would not really want to go through anything that was in the ICU, but we can continue to discuss this with her. I am not sure he is going to become functional enough to even consider this.
--- NOTE | 2017-05-11 14:47 | PDOC.PN ---
- Subjective Encounter Start Date: 05/11/17 Encounter Start Time: 12:20 Subjective: awake, not oriented, on nasal canula -: no chest pain or palp -: follows verbal stimuli - Objective Resuscitation Status: Resuscitation Status DNR:Do Not Resuscitate MAR Reviewed: Yes Vital Signs & Weight: Vital Signs (12 hours) Temp Pulse Resp Pulse Ox 05/11/17 12:00 98.7 F 05/11/17 11:54 79 19 97 05/11/17 08:00 98.2 F 05/11/17 07:20 99 05/11/17 07:19 77 21 H 99 05/11/17 04:00 97.9 F Weight Admit Weight 158 lb Weight 139 lb 15.896 oz Most Recent Monitor Data Heart Rate from ECG 73 NIBP 95/36 NIBP BP-Mean 63 Respiration from ECG 19 SpO2 93 I&O: 05/10/17 05/11/17 05/12/17 06:59 06:59 06:59 Intake Total 1945 783.2 510 Output Total 2715 2240 1005 Balance -770 -1456.8 -495 Result Diagrams: 05/11/17 03:56 05/11/17 03:56 Additional Labs: Accuchecks 05/11/17 05/11/17 05/10/17 12:41 05:38 21:29 POC Glucose 135 H 95 101 05/10/17 16:24 POC Glucose 124 H Phys Exam - Physical Examination HEENT: PERRLA, sclera anicteric Neck: no JVD, supple Respiratory: no wheezing, no rales Cardiovascular: RRR, no significant murmur Gastrointestinal: soft, non-tender, positive bowel sounds Musculoskeletal: pulses present, edema present Neurological: non-focal, moves all 4 limbs Dx/Plan (1) COPD (chronic obstructive pulmonary disease) Status: Chronic Qualifiers: COPD type: unspecified COPD Qualified Code(s): J44.9 - Chronic obstructive pulmonary disease, unspecified Comment: Stable O2 requirements. Not in exacerbartion. Continue RT, nebs (2) Acute on chronic diastolic (congestive) heart failure Code(s): I50.33 - ACUTE ON CHRONIC DIASTOLIC (CONGESTIVE) HEART FAILURE Status : Resolved (3) Anemia, normocytic normochromic Code(s): D64.9 - ANEMIA, UNSPECIFIED Status: Chronic (4) Aortic stenosis, moderate Code(s): I35.0 - NONRHEUMATIC AORTIC (VALVE) STENOSIS Status: Chronic (5) Coronary artery disease Code(s): I25.10 - ATHSCL HEART DISEASE OF [place] CORONARY ARTERY W/O ANG PCTRS Status: Chronic Qualifiers: Coronary Disease-Associated Artery/Lesion type: due to calcified coronary lesion Qualified Code(s): I25.10 - Atherosclerotic heart disease of [place] coronary artery without angina pectoris; I25.84 - Coronary atherosclerosis due to calcified coronary lesion; I25.84 - Coronary atherosclerosis due to calcified coronary lesion; I25.84 - Coronary atherosclerosis due to calcified coronary lesion Comment: CATH showed inoperable lesion (~90% blockage L main, calcified) Very poor prognosis as patient's clinical condition precluded CABG. Cardiology discussed extensively with family. Possible hospice discussed. Will f/u with family. (6) Acute hypoxemic respiratory failure Code(s): J96.01 - ACUTE RESPIRATORY FAILURE WITH HYPOXIA Status: Resolved Comment: Stable. Extubated 05/09/ He had been reintubated s/p cardiac arrest 05/01. (7) Cardiac arrest Code(s): I46.9 - CARDIAC ARREST, CAUSE UNSPECIFIED Status: Resolved Comment : V-fib , converted with defibrilation to sinus (8) Demand ischemia of myocardium Code(s): I24.8 - OTHER FORMS OF ACUTE ISCHEMIC HEART DISEASE Status: Resolved Comment: Symptom Free. 2/2 Cardiac arrest. Cardiology on board. Would like to discuss with patient's spouse to explain risk of proceeding with catheterization - Plan on asp, lovenox full dose -: oral cardizem -: iv solu, nebs -: PT to mobilize pt as tolerated -: prognosis guarded * . Review of Systems - Medications/Allergies Allergies/Adverse Reactions: Allergies Allergy/AdvReac Type Severity Reaction Status Date / Time No Known Drug Allergies Allergy Unverified 04/23/17 03:39 Medications: Current Medications Acetaminophen (Tylenol) 500 mg PO Q6H PRN PRN Reason: Headache/Fever or Pain Last Admin: 04/30/17 02:44 Dose: 500 mg Albuterol/Ipratropium (Duoneb) 3 ml NEB Q1RS-HQ LIZ Last Admin: 05/11/17 11:54 Dose: 3 ml Aspirin (Aspirin Chewable) 81 mg PO DAILY LIZ Last Admin: 05/11/17 09:23 Dose: 81 mg Bisacodyl (Dulcolax) 10 mg VA DAILYPRN PRN PRN Reason: Constipation Dextrose/Water (Dextrose 50%) 25 gm SLOW IVP PRN PRN PRN Reason: Hypoglycemia Last Admin: 05/08/17 06:25 Dose: 25 gm Diltiazem HCl (Cardizem) 60 mg PO TID [facility] Last Admin: 05/11/17 09:33 Dose: 60 mg Enoxaparin Sodium (Lovenox) 60 mg SC 0900,2100 [facility] Last Admin: 05/11/17 09:21 Dose: 60 mg Ferrous Sulfate (Ferrous Sulfulte) 300 mg PO BID-WM [facility] Last Admin: 05/11/17 09:27 Dose: 300 mg Furosemide (Lasix) 40 mg SLOW IVP 0600,1400 [facility] Last Admin: 05/11/17 05:37 Dose: 40 mg Glucagon (Glucagon) 1 mg IM PRN PRN PRN Reason: Hypoglycemia Guaifenesin (Organ-I Nr) 400 mg PO Q4H [facility] Last Admin: 05/11/17 09:00 Dose: Not Given Potassium Chloride 40 meq/ (Sodium Chloride) 270 mls @ 135 mls/hr IVPB ASDIR PRN PRN Reason: FOR SERUM K+ 2.5 - 3.5 Last Admin: 05/08/17 07:13 Dose: 270 mls Potassium Chloride 40 meq/ (Device) 100 mls @ 50 mls/hr IVPB ASDIR PRN PRN Reason: FOR SERUM K+ 2.5 - 3.5 Magnesium Sulfate 1 gm/ Sodium (Chloride) 102 mls @ 102 mls/hr IV PRN PRN PRN Reason: MAG LEVEL 1.4 - 2.0 Magnesium Sulfate 2 gm/ Device 100 mls @ 100 mls/hr IVPB ASDIR PRN PRN Reason: MAGNESIUM < 1.4 Potassium Phosphate 9 mmol/ (Sodium Chloride) 103 mls @ 25.75 mls/hr IVPB ASDIR PRN PRN Reason: Phosphate 1.0-1.8 Potassium Phosphate 12 mmol/ (Sodium Chloride) 254 mls @ 63.5 mls/hr IV ASDIR PRN PRN Reason: Serum phosphate 0.5-0.9 Potassium Phosphate 15 mmol/ (Sodium Chloride) 255 mls @ 63.75 mls/hr IV ASDIR PRN PRN Reason: Serum Phos < 0.5 Dextrose/Water (D5w) 1,000 mls @ 0 mls/hr IV .Q0M PRN; As Directed PRN Reason: Hypoglycemia Diltiazem HCl 125 mg/ Sodium (Chloride) 125 mls @ 5 mls/hr IVPB INF LIZ; 5 MG/ HR PRN Reason: Protocol Last Admin: 05/11/17 09:15 Dose: 125 mls Insulin Human Lispro (Humalog) 0 units SC .MILD SLIDING SCALE PRN PRN Reason: Mild Correctional Scale Last Admin: 05/03/17 16:16 Dose: 2 unit Insulin Human Lispro (Humalog) 0 units SC .BEDTIME SLIDING SC PRN PRN Reason: Bedtime Correctional Scale Lorazepam (Ativan) 2 mg SLOW IVP Q2H PRN PRN Reason: Anxiety to achieve Mckeon 2-3 Stop: 05/23/17 09:48 Last Admin: 04/29/17 22:15 Dose: 2 mg Magnesium Oxide (Magnesium Oxide) 400 mg PO BIDPRN PRN PRN Reason: FOR SERUM MAG 1.4 - 2.0 Magnesium Oxide (Magnesium Oxide) 800 mg PO PRN PRN PRN Reason: FOR SERUM MAG < 1.4 Methylprednisolone Sodium Succinate (Solu-Medrol) 40 mg IVP DAILY [facility] Last Admin: 05/11/17 09:23 Dose: 40 mg Miscellaneous Medication (Phos-Nak) 1 pkt PO TIDPRN PRN PRN Reason: FOR PHOS LEVEL 1.0 - 1.8 Miscellaneous Medication (Phos-Nak) 2 pkt PO TIDPRN PRN PRN Reason: FOR PHOS LEVEL 0.5 - 1.0 Pantoprazole Sodium (Protonix) 40 mg PO DAILY [facility] Last Admin: 05/11/17 09:23 Dose: 40 mg Polyethylene Glycol (Miralax) 17 gm PO DAILY [facility] Last Admin: 05/11/17 09:23 Dose: 17 gm Potassium Chloride (K-Dur) 40 meq PO ASDIR PRN PRN Reason: FOR SERUM K+ 2.5 - 3.5 Potassium Chloride (Klor-Con) 40 meq PER TUBE ASDIR PRN PRN Reason: FOR SERUM K+ 2.5-3.5 Last Admin: 05/10/17 07:57 Dose: 40 meq Potassium Chloride (Klor-Con) 20 meq PO BID-[facility] Last Admin: 05/11/17 09:23 Dose: 20 meq Propofol (Diprivan) 1,000 mg IV INF PRN; Protocol PRN Reason: TO ACHIEVE MCKEON SCORE 2-3 Stop: 05/23/17 09:48 Last Admin: 05/08/17 11:42 Dose: 1,000 mg Scopolamine (Transderm Scop) 1.5 mg TD Q3D [facility] Last Admin: 05/09/17 08:14 Dose: 1.5 mg Sodium Chloride (Flush - Normal Saline) 10 ml IVF Q12HR [facility] Last Admin: 05/11/17 09:27 Dose: 10 ml Sodium Chloride (Flush - Normal Saline) 10 ml IVF PRN PRN PRN Reason: Saline Flush
[2017-05-11 15:04] VITALS: BMI 20.7
[2017-05-11] MEDS: HumaLOG 300 UNITS/3 ML VIAL SC PRN ×2 (17:58→21:14)
[2017-05-12] MEDS: guaiFENesin 200 MG TAB PO SCH ×6 (02:45→20:53)
[2017-05-12] MEDS: Diltiazem 125 MG in Sodium Chloride 0.9% 100 ML IVPB SCH (03:44)
[2017-05-12 04:33] LABS: Anion Gap 14 mmol/L (10-20); BUN (Urea Nitrogen) 25 mg/dL (8.4-25.7); Calc. Creatinine Clearance 75 mL/min (70-130); Calcium 9.5 mg/dL (7.8-10.44); Carbon Dioxide 30 mmol/L (23-31); Chloride 98 mmol/L (98-107); Estimated GFR-MDRD Greater than 90; Glucose 99 mg/dL (83-110); Sodium 137 mmol/L (136-145)
[2017-05-12 04:36] LABS: Band 3 % (5-11); Hemoglobin 10.4 g/dL (14.0-18.0); Lymphocytes 11 % (21-51); MDiff Complete? YES; Mean Corpuscular HGB CONC 31.5 g/dL (32.0-36.0); Mean Corpuscular Hemoglobin 29.4 pg (27.0-31.0); Mean Corpuscular Volume 93.3 fl (80.0-94.0); Mean Platelet Volume 8.3 fL (7.4-10.4); Monocytes 7 % (0-10); Neutrophil 79 % (42-75); Platelet Count 202 thou/uL (130-400); Red Blood Cell (RBC) Count 3.53 mill/uL (4.70-6.10); White Blood Cell (WBC) Count 7.6 thou/uL (4.8-10.8)
[2017-05-12] MEDS: Furosemide 40 MG/4 ML VIAL SLOW IVP SCH ×2 (05:11→14:36)
--- NOTE | 2017-05-12 09:32 | PRG ---
DATE OF SERVICE: SERVICE: Pulmonary Medicine. INTERVAL HISTORY: The patient is doing fairly well from a respiratory standpoint. This morning, he continues to remain confused. That being said, his mentation is a little bit better today. His stre ngth is also improved. I think he could probably participate with physical therapy. He does not kno w where he is and what the circumstances are. He denies any chest pain or shortness of breath curren tly. PHYSICAL EXAMINATION: VITAL SIGNS: Afebrile, pulse 74, blood pressure 121/40, respirations 18, saturation 96% on 2 liters nasal cannula. GENERAL: Patient is awake, alert, in no apparent distress. LUNGS: Decent air entry. There are crackles present. HEART: Normal rate, regular. ABDOMEN: Soft, nontender, nondistended. Bowel sounds are positive. MUSCULOSKELETAL: No cyanosis or clubbing. There is no pitting in the bilateral lower extremities. NEUROLOGIC: Grossly nonfocal. LABORATORY DATA: WBC 7.6, hemoglobin 10.4 and stable, platelets 202,000. Basic metabolic profile is completely unremarkable with potassium 5.0 and creatinine 0.74. Body fluid culture was consistent w ith a transudate. Culture is negative to date. ASSESSMENT: 1. Chronic hypoxic respiratory failure. 2. Status post ventricular fibrillation and ventricular tachycardia arrest. 3. Community-acquired pneumonia. 4. Coronary artery disease, severe, with 95% left main lesion. 5. Deconditioning, severe. PLAN: The patient will remain in the ICU until we decide what to do about this left main lesion. In the meantime, physical therapy will be invited to help us make certain the patient does not get furt her deconditioned. We will try to move him as best we can. Oxygen will be weaned as tolerated. Mukesh t being said, he is on home O2 and so it would be reasonable to leave him on a low rate. Pulmonary o r Critical Care will continue to follow while he remains in this location.
[2017-05-12] MEDS: Pantoprazole 40 MG GRANULES PACKET PO SCH (09:37)
[2017-05-12] MEDS: Enoxaparin Sodium 60 MG/0.6 ML SYRINGE SC SCH ×2 (09:38→20:53)
[2017-05-12] MEDS: Polyethylene Glycol 3350 17 GM Packet PO SCH (09:38)
[2017-05-12] MEDS: Scopolamine 1.5 mg/72 hour Patch TD SCH (09:40)
--- NOTE | 2017-05-12 14:46 | PDOC.PN ---
- Subjective Encounter Start Date: 05/12/17 Encounter Start Time: 12:45 Subjective: no sob or palp -: is sitting in chair and feeding -: not fully oriented - Objective Resuscitation Status: Resuscitation Status DNR:Do Not Resuscitate MAR Reviewed: Yes Vital Signs & Weight: Vital Signs (12 hours) Temp Pulse Resp Pulse Ox 05/12/17 12:00 98.1 F 05/12/17 08:00 98.7 F 80 24 H 98 05/12/17 06:49 96 05/12/17 06:47 74 18 96 05/12/17 04:00 97.9 F Weight Admit Weight 158 lb Weight 132 lb 8 oz Most Recent Monitor Data Heart Rate from ECG 77 NIBP 110/46 NIBP BP-Mean 73 Respiration from ECG 19 SpO2 96 I&O: 05/11/17 05/12/17 05/13/17 06:59 06:59 06:59 Intake Total 783.2 1853.6 720 Output Total 2240 1598 720 Balance -1456.8 255.6 0 Result Diagrams: 05/12/17 03:47 05/12/17 03:47 Additional Labs: Accuchecks 05/12/17 05/12/17 05/11/17 12:07 05:14 21:11 POC Glucose 126 H 90 170 H 05/11/17 16:24 POC Glucose 174 H Phys Exam - Physical Examination HEENT: PERRLA, moist MMs Neck: no JVD, supple Respiratory: no wheezing, no rales Cardiovascular: no significant murmur, irregular Gastrointestinal: soft, non-tender, positive bowel sounds Musculoskeletal: no edema, pulses present Neurological: non-focal, moves all 4 limbs Dx/Plan (1) COPD (chronic obstructive pulmonary disease) Status: Chronic Qualifiers: COPD type: unspecified COPD Qualified Code(s): J44.9 - Chronic obstructive pulmonary disease, unspecified Comment: Stable O2 requirements. Not in exacerbartion. Continue RT, nebs (2) Acute on chronic diastolic (congestive) heart failure Code(s): I50.33 - ACUTE ON CHRONIC DIASTOLIC (CONGESTIVE) HEART FAILURE Status : Resolved (3) Anemia, normocytic normochromic Code(s): D64.9 - ANEMIA, UNSPECIFIED Status: Chronic (4) Aortic stenosis, moderate Code(s): I35.0 - NONRHEUMATIC AORTIC (VALVE) STENOSIS Status: Chronic (5) Coronary artery disease Code(s): I25.10 - ATHSCL HEART DISEASE OF [place] CORONARY ARTERY W/O ANG PCTRS Status: Chronic Qualifiers: Coronary Disease-Associated Artery/Lesion type: due to calcified coronary lesion Qualified Code(s): I25.10 - Atherosclerotic heart disease of [place] coronary artery without angina pectoris; I25.84 - Coronary atherosclerosis due to calcified coronary lesion; I25.84 - Coronary atherosclerosis due to calcified coronary lesion; I25.84 - Coronary atherosclerosis due to calcified coronary lesion Comment: CATH showed inoperable lesion (~90% blockage L main, calcified) Very poor prognosis as patient's clinical condition precluded CABG. Cardiology discussed extensively with family. Possible hospice discussed. Will f/u with family. (6) Acute hypoxemic respiratory failure Code(s): J96.01 - ACUTE RESPIRATORY FAILURE WITH HYPOXIA Status: Resolved Comment: Stable. Extubated 05/09/ He had been reintubated s/p cardiac arrest 05/01. (7) Cardiac arrest Code(s): I46.9 - CARDIAC ARREST, CAUSE UNSPECIFIED Status: Resolved Comment : V-fib , converted with defibrilation to sinus (8) Demand ischemia of myocardium Code(s): I24.8 - OTHER FORMS OF ACUTE ISCHEMIC HEART DISEASE Status: Resolved Comment: Symptom Free. 2/2 Cardiac arrest. Cardiology on board. Would like to discuss with patient's spouse to explain risk of proceeding with catheterization (9) Afib Code(s): I48.91 - UNSPECIFIED ATRIAL FIBRILLATION Status: Acute - Plan is on cardizem drip at 5mg/hr -: full dose lovenox, lasix 40mg iv q12h -: solumedrol daily -: PT to mobilize pt as tolerated -: prognosis guarded with left main lesion * . Review of Systems - Medications/Allergies Allergies/Adverse Reactions: Allergies Allergy/AdvReac Type Severity Reaction Status Date / Time No Known Drug Allergies Allergy Unverified 04/23/17 03:39 Medications: Current Medications Acetaminophen (Tylenol) 500 mg PO Q6H PRN PRN Reason: Headache/Fever or Pain Last Admin: 04/30/17 02:44 Dose: 500 mg Albuterol/Ipratropium (Duoneb) 3 ml NEB Q8PA-OH LIZ Last Admin: 05/12/17 06:47 Dose: 3 ml Aspirin (Aspirin Chewable) 81 mg PO DAILY [facility] Last Admin: 05/12/17 09:37 Dose: 81 mg Bisacodyl (Dulcolax) 10 mg CA DAILYPRN PRN PRN Reason: Constipation Dextrose/Water (Dextrose 50%) 25 gm SLOW IVP PRN PRN PRN Reason: Hypoglycemia Last Admin: 05/08/17 06:25 Dose: 25 gm Diltiazem HCl (Cardizem) 60 mg PO TID [facility] Last Admin: 05/12/17 14:36 Dose: 60 mg Enoxaparin Sodium (Lovenox) 60 mg SC 0900,2100 [facility] Last Admin: 05/12/17 09:38 Dose: 60 mg Ferrous Sulfate (Ferrous Sulfulte) 300 mg PO BID-WM [facility] Last Admin: 05/12/17 09:38 Dose: 300 mg Furosemide (Lasix) 40 mg SLOW IVP 0600,1400 [facility] Last Admin: 05/12/17 14:36 Dose: 40 mg Glucagon (Glucagon) 1 mg IM PRN PRN PRN Reason: Hypoglycemia Guaifenesin (Organ-I Nr) 400 mg PO Q4H [facility] Last Admin: 05/12/17 13:21 Dose: 400 mg Potassium Chloride 40 meq/ (Sodium Chloride) 270 mls @ 135 mls/hr IVPB ASDIR PRN PRN Reason: FOR SERUM K+ 2.5 - 3.5 Last Admin: 05/08/17 07:13 Dose: 270 mls Potassium Chloride 40 meq/ (Device) 100 mls @ 50 mls/hr IVPB ASDIR PRN PRN Reason: FOR SERUM K+ 2.5 - 3.5 Magnesium Sulfate 1 gm/ Sodium (Chloride) 102 mls @ 102 mls/hr IV PRN PRN PRN Reason: MAG LEVEL 1.4 - 2.0 Magnesium Sulfate 2 gm/ Device 100 mls @ 100 mls/hr IVPB ASDIR PRN PRN Reason: MAGNESIUM < 1.4 Potassium Phosphate 9 mmol/ (Sodium Chloride) 103 mls @ 25.75 mls/hr IVPB ASDIR PRN PRN Reason: Phosphate 1.0-1.8 Potassium Phosphate 12 mmol/ (Sodium Chloride) 254 mls @ 63.5 mls/hr IV ASDIR PRN PRN Reason: Serum phosphate 0.5-0.9 Potassium Phosphate 15 mmol/ (Sodium Chloride) 255 mls @ 63.75 mls/hr IV ASDIR PRN PRN Reason: Serum Phos < 0.5 Dextrose/Water (D5w) 1,000 mls @ 0 mls/hr IV .Q0M PRN; As Directed PRN Reason: Hypoglycemia Diltiazem HCl 125 mg/ Sodium (Chloride) 125 mls @ 5 mls/hr IVPB INF LIZ; 5 MG/ HR PRN Reason: Protocol Last Admin: 05/12/17 03:44 Dose: 125 mls Insulin Human Lispro (Humalog) 0 units SC .MILD SLIDING SCALE PRN PRN Reason: Mild Correctional Scale Last Admin: 05/11/17 21:14 Dose: 2 unit Insulin Human Lispro (Humalog) 0 units SC .BEDTIME SLIDING SC PRN PRN Reason: Bedtime Correctional Scale Magnesium Oxide (Magnesium Oxide) 400 mg PO BIDPRN PRN PRN Reason: FOR SERUM MAG 1.4 - 2.0 Magnesium Oxide (Magnesium Oxide) 800 mg PO PRN PRN PRN Reason: FOR SERUM MAG < 1.4 Methylprednisolone Sodium Succinate (Solu-Medrol) 40 mg IVP DAILY [facility] Last Admin: 05/12/17 09:38 Dose: 40 mg Miscellaneous Medication (Phos-Nak) 1 pkt PO TIDPRN PRN PRN Reason: FOR PHOS LEVEL 1.0 - 1.8 Miscellaneous Medication (Phos-Nak) 2 pkt PO TIDPRN PRN PRN Reason: FOR PHOS LEVEL 0.5 - 1.0 Pantoprazole Sodium (Protonix) 40 mg PO DAILY [facility] Last Admin: 05/12/17 09:37 Dose: 40 mg Polyethylene Glycol (Miralax) 17 gm PO DAILY [facility] Last Admin: 05/12/17 09:38 Dose: 17 gm Potassium Chloride (K-Dur) 40 meq PO ASDIR PRN PRN Reason: FOR SERUM K+ 2.5 - 3.5 Potassium Chloride (Klor-Con) 40 meq PER TUBE ASDIR PRN PRN Reason: FOR SERUM K+ 2.5-3.5 Last Admin: 05/10/17 07:57 Dose: 40 meq Potassium Chloride (Klor-Con) 20 meq PO BID-[facility] Last Admin: 05/12/17 09:37 Dose: 20 meq Propofol (Diprivan) 1,000 mg IV INF PRN; Protocol PRN Reason: TO ACHIEVE MCKEON SCORE 2-3 Stop: 05/23/17 09:48 Last Admin: 05/08/17 11:42 Dose: 1,000 mg Scopolamine (Transderm Scop) 1.5 mg TD Q3D [facility] Last Admin: 05/12/17 09:40 Dose: Not Given Sodium Chloride (Flush - Normal Saline) 10 ml IVF Q12HR [facility] Last Admin: 05/12/17 09:39 Dose: 10 ml Sodium Chloride (Flush - Normal Saline) 10 ml IVF PRN PRN PRN Reason: Saline Flush
[2017-05-12] MEDS: HumaLOG 300 UNITS/3 ML VIAL SC PRN (16:33)
[2017-05-13] MEDS: Diltiazem 125 MG in Sodium Chloride 0.9% 100 ML IVPB SCH (00:17)
[2017-05-13] MEDS: guaiFENesin 200 MG TAB PO SCH ×6 (00:31→20:43)
[2017-05-13 04:43] LABS: Anion Gap 11 mmol/L (10-20); BUN (Urea Nitrogen) 23 mg/dL (8.4-25.7); Calc. Creatinine Clearance 71 mL/min (70-130); Calcium 9.5 mg/dL (7.8-10.44); Carbon Dioxide 31 mmol/L (23-31); Chloride 97 mmol/L (98-107); Estimated GFR-MDRD Greater than 90; Glucose 94 mg/dL (83-110); Potassium 4.4 mmol/L (3.5-5.1); Sodium 135 mmol/L (136-145)
[2017-05-13] MEDS: Furosemide 40 MG/4 ML VIAL SLOW IVP SCH (05:06)
[2017-05-13 05:21] LABS: Band 6 % (5-11); Hemoglobin 9.8 g/dL (14.0-18.0); Lymphocytes 17 % (21-51); MDiff Complete? YES; Mean Corpuscular HGB CONC 31.5 g/dL (32.0-36.0); Mean Corpuscular Hemoglobin 29.2 pg (27.0-31.0); Mean Corpuscular Volume 92.7 fl (80.0-94.0); Mean Platelet Volume 8.1 fL (7.4-10.4); Monocytes 5 % (0-10); Neutrophil 72 % (42-75); Platelet Count 254 thou/uL (130-400); RBC Distribution Width 20.1 % (11.5-14.5); Red Blood Cell (RBC) Count 3.37 mill/uL (4.70-6.10); White Blood Cell (WBC) Count 8.7 thou/uL (4.8-10.8)
[2017-05-13] MEDS: Pantoprazole 40 MG GRANULES PACKET PO SCH (10:54)
[2017-05-13] MEDS: Enoxaparin Sodium 60 MG/0.6 ML SYRINGE SC SCH ×2 (10:54→20:43)
[2017-05-13] MEDS: Polyethylene Glycol 3350 17 GM Packet PO SCH (10:54)
--- NOTE | 2017-05-13 14:19 | PDOC.PN ---
- Subjective Encounter Start Date: 05/13/17 Encounter Start Time: 11:50 Pt states breatihng is a little easier today. Was up with PT earlier, walked form bed to window, to other window. + CHÁVEZ, no n/V/D/C, no F/C, coughing, but non-productive 10 point ROS performed and neg for all systems except as above - Objective Resuscitation Status: Resuscitation Status DNR:Do Not Resuscitate MAR Reviewed: Yes Vital Signs & Weight: Vital Signs (12 hours) Temp Pulse Resp Pulse Ox 05/13/17 11:38 85 22 H 05/13/17 08:00 97.6 F 85 22 H 96 05/13/17 07:47 87 L 05/13/17 07:41 70 19 87 L 05/13/17 07:00 97.6 F 05/13/17 04:00 98.1 F Weight Admit Weight 158 lb Weight 132 lb 3.2 oz Most Recent Monitor Data Heart Rate from ECG 75 NIBP 94/37 NIBP BP-Mean 80 Respiration from ECG 30 SpO2 91 I&O: 05/12/17 05/13/17 05/14/17 06:59 06:59 06:59 Intake Total 1853.6 1519.8 480 Output Total 1598 1635 805 Balance 255.6 -115.2 -325 Result Diagrams: 05/13/17 03:50 05/13/17 03:50 Additional Labs: Accuchecks 05/13/17 05/12/17 05/12/17 13:52 21:07 16:27 POC Glucose 95 131 H 151 H Radiology Reviewed by me: Yes EKG Reviewed by me: Yes Phys Exam - Physical Examination Constitutional: NAD HEENT: PERRLA, moist MMs, sclera anicteric, oral pharynx no lesions Neck: no nodes, no JVD, supple, full ROM prolonged expiration, + high-pitched exp wheezes, no crackles Cardiovascular: no significant murmur, no rub tachy 100 to 133 back to 100 Gastrointestinal: soft, non-tender, no distention, positive bowel sounds Musculoskeletal: pulses present, edema present Neurological: non-focal, normal sensation, moves all 4 limbs Lymphatic: no nodes Psychiatric: normal affect, A&O x 3 Skin: no rash, normal turgor, cap refill <2 seconds Dx/Plan (1) Acute hypoxemic respiratory failure Code(s): J96.01 - ACUTE RESPIRATORY FAILURE WITH HYPOXIA Status: Resolved Comment: Stable. Extubated 05/09 He had been reintubated s/p cardiac arrest 05/01. (2) PNA (pneumonia) Code(s): J18.9 - PNEUMONIA, UNSPECIFIED ORGANISM Status: Resolved Qualifiers: Pneumonia type: due to unspecified organism Laterality: bilateral Lung location: unspecified part of lung Qualified Code(s): J18.9 - Pneumonia, unspecified organism Comment: Resolved. Septic on admission, placed on vancomycin and Cefepime/ Cx negative. No significant cx growths. Vancomycin and Cefepime discontinued 05/09 (3) COPD (chronic obstructive pulmonary disease) Status: Chronic Qualifiers: COPD type: unspecified COPD Qualified Code(s): J44.9 - Chronic obstructive pulmonary disease, unspecified Comment: Stable O2 requirements. Not in exacerbartion. Continue RT, nebs (4) Physical deconditioning Code(s): R53.81 - OTHER MALAISE Status: Acute - Plan cont current plan of care, continue antibiotics, PT/OT, respiratory therapy, out of bed/ambulate, DVT proph w/lovenox * .
--- NOTE | 2017-05-13 15:00 | PRG ---
DATE OF SERVICE: 05/13/2017 SERVICE: Pulmonary Medicine. INTERVAL HISTORY: The patient doing really well from a respiratory standpoint. He is breathing comf ortably. Yesterday, he actually fell out of his chair. Today we have gotten him back up into the ch air. Otherwise, he is a little bit confused. He does not recognize how weak he is and continues to make attempts and moving. He denies any overnight events. Nursing reports no events. PHYSICAL EXAMINATION: VITAL SIGNS: Afebrile, pulse 70, blood pressure 106/48, respirations 19, saturation 92% on 2 liters nasal cannula. GENERAL: The patient is awake, alert, in no apparent distress. LUNGS: Reduced air entry with prolonged expiratory phase. There is expiratory wheezing identified. No rhonchi or crackles are appreciated. HEART: Normal rate, irregular. ABDOMEN: Soft, nontender, nondistended. Bowel sounds are positive. MUSCULOSKELETAL: No cyanosis or clubbing. There is minimal pitting in the bilateral lower extremiti es. NEUROLOGIC: Grossly nonfocal. LABORATORY DATA: WBC 8.7, hemoglobin 9.8, platelets 254,000. Basic metabolic profile is essentially unremarkable. His chloride is 97. Urinalysis is essentially unremarkable. One out of two blood cu ltures growing presumptive micrococcus. Body fluid cultures negative. ASSESSMENT: 1. Chronic hypoxic respiratory failure. 2. Status post ventricular fibrillation and ventricular tachycardia arrest. 3. Coronary artery disease, severe, with 95% left main lesion. 4. Community acquired pneumonia, improving. 5. Deconditioning, severe. PLAN: At this point, the patient remains stable for transition out of the ICU to the telemetry unit. Unfortunately, he is going to require at risk. Pulmonary Critical Care will continue to foll ow while the patient remains in this location. I am going to stop his daily laboratories and we will continue focusing efforts on mobilizing the patient.
[2017-05-14] MEDS: guaiFENesin 200 MG TAB PO SCH ×6 (00:49→22:10)
[2017-05-14] MEDS: Acetaminophen 500 MG TAB PO PRN (05:14)
[2017-05-14] MEDS ORDERED: Furosemide 40 MG/4 ML VIAL SLOW IVP SCH (09:00)
[2017-05-14] MEDS ORDERED: Digoxin 0.5 MG/2 ML AMP SLOW IVP SCH (09:30)
--- NOTE | 2017-05-14 09:43 | PRG ---
DATE OF SERVICE: 05/14/2017 SUBJECTIVE: Mr. Kasper is more awake and alert today. He has no chest pain, no shortness of breath. PHYSICAL EXAMINATION: VITAL SIGNS: Blood pressure 124/45, pulse is 90-100, it is irregular. LUNGS: Clear. CARDIAC: Irregularly irregular. ABDOMEN: Soft, nontender. EXTREMITIES: No clubbing or cyanosis. There is no edema. ASSESSMENT: 1. Left main stenosis, calcified. 2. Chronic obstructive pulmonary disease. 3. Atrial fibrillation, chronic. PLAN: 1. Increased diltiazem. 2. We will give him a single dose of digoxin. 3. We will discuss again with Dr. Anderson. He looks better now, whether he could be reconsidered for surgery, if not, we need to try to consider whether he would be a candidate for high risk interventio n. He is much more awake and alert now.
[2017-05-14] MEDS: Polyethylene Glycol 3350 17 GM Packet PO SCH (10:27)
[2017-05-14] MEDS: Enoxaparin Sodium 60 MG/0.6 ML SYRINGE SC SCH ×2 (10:27→22:10)
[2017-05-14] MEDS: predniSONE 20 MG TAB PO SCH (10:27)
[2017-05-14] MEDS: Pantoprazole 40 MG GRANULES PACKET PO SCH (10:31)
[2017-05-14] MEDS: HumaLOG 300 UNITS/3 ML VIAL SC PRN (17:08)
--- NOTE | 2017-05-14 17:25 | PRG ---
DATE OF SERVICE: 05/14/2017 Saji Kasper is more lucid. OBJECTIVE: VITAL SIGNS: Today, his heart rate is 79, respiratory rate is in the 20s, oximetry is 94, blood pres sure 120/39. Intake and output is negative 503. LUNGS: Clear. HEART: Regular rhythm. ABDOMEN: Soft. IMPRESSION: 1. Status post respiratory failure what appeared to be pneumonia. 2. Calcified left main stenosis. 3. Underlying obstructive lung disease with severe. 4. Acute on chronic respiratory failure with chronic hypoxemia on oxygen at home. 5. Chronic atrial fibrillation. Because of his deconditioning and inactivity, I do not think he could survive the surgery. He is jus t a little bit better than bedridden and prior to this admission, he could only get in from the [facility] lot if he was in a scooter. I really do not feel he would tolerate median sternotomy for bypass s urgery. I do not doubt that he would survive surgery, but weaning from mechanical ventilation will l ikely be very prolonged. I will discuss with him again, but Cardiothoracic Surgery thought his funct ional status precluded an operative procedure was well.
--- NOTE | 2017-05-14 18:33 | ADD-PRG ---
ADDENDUM DATE OF SERVICE: 05/14/2017 Discussed the case of Mr. Kasper with the physicians at [facility] in [place]. They have agreed to accept the patient and transfer. Consideration for high risk intervention will need to be given. The patient has severely calcified left main stenosis. Not an operative candidate for thoracic shahana kathe here at this point.
--- NOTE | 2017-05-14 22:47 | PDOC.PN ---
- Subjective Encounter Start Date: 05/14/17 Encounter Start Time: 18:20 Subjective: f/u for acute/chronic hypoxic resp failure with severe L main CAD. Remains -: high risk for surgical intervention but apparently will be evaluated at [facility] -: [place] for surgical options. - Objective Resuscitation Status: Resuscitation Status DNR:Do Not Resuscitate MAR Reviewed: Yes Vital Signs & Weight: Vital Signs (12 hours) Temp Pulse Resp Pulse Ox 05/14/17 22:21 78 20 95 05/14/17 20:00 98.8 F 74 20 98 05/14/17 19:03 70 15 98 05/14/17 16:00 98.2 F 05/14/17 15:41 79 25 H 94 L 05/14/17 12:00 98.0 F 05/14/17 11:15 89 25 H 98 Weight Admit Weight 158 lb Weight 143 lb 8.335 oz Most Recent Monitor Data Heart Rate from ECG 81 NIBP 121/41 NIBP BP-Mean 98 Respiration from ECG 21 SpO2 94 I&O: 05/13/17 05/14/17 05/15/17 06:59 06:59 06:59 Intake Total 1519.8 840 560 Output Total 1635 1343 100 Balance -115.2 -503 460 Result Diagrams: 05/13/17 03:50 05/13/17 03:50 Additional Labs: Accuchecks 05/14/17 05/14/17 17:07 05:20 POC Glucose 180 H 78 EKG Reviewed by me: Yes (Tele -A-fib with variable rate) Phys Exam - Physical Examination Constitutional: NAD HEENT: PERRLA, oral pharynx no lesions Neck: no JVD, supple exp wheezes, diminished in bases Respiratory: wheezing present Cardiovascular: irregular Gastrointestinal: soft, non-tender, no distention, positive bowel sounds Musculoskeletal: pulses present, edema present Neurological: normal sensation, moves all 4 limbs Psychiatric: A&O x 3 Skin: normal turgor, cap refill <2 seconds Dx/Plan (1) Acute hypoxemic respiratory failure Code(s): J96.01 - ACUTE RESPIRATORY FAILURE WITH HYPOXIA Status: Resolved Comment: Stable. Extubated 05/09 He had been reintubated s/p cardiac arrest 05/01, currently on RA (2) Afib Code(s): I48.91 - UNSPECIFIED ATRIAL FIBRILLATION Status: Acute Qualifiers: Atrial fibrillation type: chronic Qualified Code(s): I48.2 - Chronic atrial fibrillation Comment: Rate variable, continue Cardizem, Lovenox (3) Hypokalemia Code(s): E87.6 - HYPOKALEMIA Status: Acute Comment: Repleted. Likely 2/2 diuretics., Resolved (4) Physical deconditioning Code(s): R53.81 - OTHER MALAISE Status: Chronic Comment: PT for mobilization and functional assessment (5) Coronary artery disease Code(s): I25.10 - ATHSCL HEART DISEASE OF [place] CORONARY ARTERY W/O ANG PCTRS Status: Chronic Qualifiers: Coronary Disease-Associated Artery/Lesion type: due to calcified coronary lesion Qualified Code(s): I25.10 - Atherosclerotic heart disease of [place] coronary artery without angina pectoris; I25.84 - Coronary atherosclerosis due to calcified coronary lesion; I25.84 - Coronary atherosclerosis due to calcified coronary lesion; I25.84 - Coronary atherosclerosis due to calcified coronary lesion Comment: CATH showed inoperable lesion (~90% blockage L main, calcified) Very poor prognosis as patient's clinical condition precluded CABG. Apparently [facility] in [place] willing to accept pt in transfer for operative mgmt. (6) Acute on chronic diastolic (congestive) heart failure Code(s): I50.33 - ACUTE ON CHRONIC DIASTOLIC (CONGESTIVE) HEART FAILURE Status : Resolved Comment: Stabilizing, continue Lasix 40mg daily (7) PNA (pneumonia) Code(s): J18.9 - PNEUMONIA, UNSPECIFIED ORGANISM Status: Resolved Qualifiers: Pneumonia type: due to unspecified organism Laterality: bilateral Lung location: unspecified part of lung Qualified Code(s): J18.9 - Pneumonia, unspecified organism Comment: Resolved. Septic on admission, placed on vancomycin and Cefepime/ Cx negative. No significant cx growths. Vancomycin and Cefepime discontinued 05/09 (8) Sepsis with acute organ dysfunction Code(s): A41.9 - SEPSIS, UNSPECIFIED ORGANISM; R65.20 - SEVERE SEPSIS WITHOUT SEPTIC SHOCK Status: Resolved Comment: Vancomycin and Cefepime initially now d/c'd - Plan PT/OT, social work therapist, respiratory therapy, out of bed/ambulate, DVT proph w/ SCDs Continue supportive mgmt -: Continue Cardizem 240mg daily -: Lovenox 60mg SC q12h -: Continue ASA 81mg daily -: Likely can transfer to [facility] [place] in 24h * .
[2017-05-15] MEDS: guaiFENesin 200 MG TAB PO SCH ×2 (03:00→06:19)
[2017-05-15 07:28] VITALS: TEMP 97.5
--- NOTE | 2017-05-15 07:59 | ULT ---
VENOUS DOPPLER ULTRASOUND OF THE RIGHT LOWER EXTREMITY: Date; 05/14/18 HISTORY: Right lower extremity edema and pain, recent catheterization, swelling in the right upper anterior th igh. TECHNIQUE: Ayon scale ultrasound with color flow and spectral Doppler imaging of the deep venous systems of the right lower extremity is performed. FINDINGS: There is good flow, compression, and augmentation noted in the right common femoral, femoral, deep fe moral, popliteal, posterior tibial, and greater saphenous veins. There is a heterogeneous mass in the right upper anterior thigh measuring 14.0 x 6.1 x 6.1 cm, which is within the muscle, suspicious for hematoma. IMPRESSION: No evidence of deep venous thrombosis in the right lower extremity. POS: HUSEYIN
--- NOTE | 2017-05-15 08:52 | PRG ---
DATE OF SERVICE: 05/15/2017 The patient was about to be transferred this morning. I Was alerted there is some swelling of his ri ght thigh. He has no chest pain or pressure. PHYSICAL EXAMINATION: VITAL SIGNS: His blood pressure was 120 systolic. Pulse 80-90, it is irregular. LUNGS: Clear. CARDIAC: Irregularly irregular. EXTREMITIES; The right thigh is swollen. Reviewing the study, he had a venous ultrasound done last night which showed no clots, but probably h ematoma. ASSESSMENT: 1. Left main stenosis, inoperable. 2. Chronic atrial fibrillation. 3. Previous pacemaker insertion. 4. Hematoma, suspect arterial source. PLAN: The patient was about to be transferred as we speak. He will need an ultrasound of the right femoral to see if has a pseudoaneurysm, may need further attention with that. The patient has been o n Lovenox that was held the day of the cath and the day after and resumed the next day, but he may arteaga ve developed a pseudoaneurysm that needs to be evaluated. I have handwritten that in the note.
[2017-05-15] MEDS: predniSONE 20 MG TAB PO SCH (08:56)
[2017-05-15 09:00] VITALS: BP 127/82
--- NOTE | 2017-05-19 17:34 | EKG ---
Test Reason : UNCONSCIOUS Blood Pressure : / mmHG Vent. Rate : 090 BPM Atrial Rate : 098 BPM P-R Int : 000 ms QRS Dur : 100 ms QT Int : 402 ms P-R-T Axes : 000 056 -83 degrees QTc Int : 491 ms Atrial fibrillation Prolonged QT Abnormal ECG Confirmed by HAIDER BAE ([id number]), make up editor ROBY AYALA ([id number]) on 05/19/2017 5:33:25 PM Referred By: Confirmed By:HAIDER BAE
== END 2017-05-15 09:00 | disposition short-term general hospital (02) | DRG 870 ==
LOC: ERS 02:48 → ERHOLD 04:01 → CCU 07:03
PROVIDERS: ADMIT Emergency Medicine; ATTEND Emergency Medicine
PROC: 5A1955Z Respiratory Ventilation, Greater than 96 Consecutive Hours (ICD-10-PCS; principal; 2017-04-23)
PROC: 0W993ZX Drainage of Right Pleural Cavity, Percutaneous Approach, Diagnostic (ICD-10-PCS; 2017-04-27)
PROC: 0BH17EZ Insertion of Endotracheal Airway into Trachea, Via Natural or Artificial Opening (ICD-10-PCS; 2017-05-01)
PROC: 5A2204Z Restoration of Cardiac Rhythm, Single (ICD-10-PCS; 2017-05-01)
PROC: 30233N1 Transfusion of Nonautologous Red Blood Cells into Peripheral Vein, Percutaneous Approach (ICD-10-PCS; 2017-05-04)
PROC: 4A023N7 Measurement of Cardiac Sampling and Pressure, Left Heart, Percutaneous Approach (ICD-10-PCS; 2017-05-08)
PROC: B2111ZZ Fluoroscopy of Multiple Coronary Arteries using Low Osmolar Contrast (ICD-10-PCS; 2017-05-08)
PROC: B2151ZZ Fluoroscopy of Left Heart using Low Osmolar Contrast (ICD-10-PCS; 2017-05-08)
DX: A41.9 Sepsis, unspecified organism (principal); J96.02 Acute respiratory failure with hypercapnia; J18.9 Pneumonia, unspecified organism; I47.2 Ventricular tachycardia; I50.33 Acute on chronic diastolic (congestive) heart failure; I24.8 Other forms of acute ischemic heart disease; D69.6 Thrombocytopenia, unspecified; E87.0 Hyperosmolality and hypernatremia; I11.0 Hypertensive heart disease with heart failure; J96.21 Acute and chronic respiratory failure with hypoxia; I49.01 Ventricular fibrillation; I46.9 Cardiac arrest, cause unspecified; J44.0 Chronic obstructive pulmonary disease with (acute) lower respiratory infection; I42.9 Cardiomyopathy, unspecified; I27.20 Pulmonary hypertension, unspecified; D50.9 Iron deficiency anemia, unspecified; E11.9 Type 2 diabetes mellitus without complications; I48.0 Paroxysmal atrial fibrillation; I48.2 Chronic atrial fibrillation; J44.9 Chronic obstructive pulmonary disease, unspecified; Z99.81 Dependence on supplemental oxygen; Z95.0 Presence of cardiac pacemaker; I25.2 Old myocardial infarction; Z79.01 Long term (current) use of anticoagulants; E66.9 Obesity, unspecified; I25.10 Atherosclerotic heart disease of native coronary artery without angina pectoris; Z66 Do not resuscitate; Z95.5 Presence of coronary angioplasty implant and graft; I73.9 Peripheral vascular disease, unspecified; E87.6 Hypokalemia; I35.0 Nonrheumatic aortic (valve) stenosis; R65.20 Severe sepsis without septic shock; Z78.1 Physical restraint status; Z68.23 Body mass index [BMI] 23.0-23.9, adult
CPT/HCPCS: 36415; 36416; 36430; 51702; 71045; 71250; 76942; 80048; 80053; 80202; 81001; 82550; 82553; 82607; 82728; 82746; 82805; 82945; 83540; 83550; 83605; 83615; 83735; 83880; 83986; 84157; 84484; 85007; 85025; 85027; 85060; 86850; 86900; 86901; 87040; 87070; 87149; 87205; 88112; 88305; 89051; 93005; 93306; 93458; 94002; 94003; 94150; 94640; 96361; 96365; 96375; A4216; C1769; C9113; G8978-GP-CM; G8979-GP-CL; G8987-GO-CN; G8988-GO-CL; G8996-GN-CI; G8996-GN-CJ; G8997-GN-CI; J0456; J0692; J0696; J1160; J1644; J1650; J1750; J1940; J1956; J2060; J2250; J2270; J2704; J2920; J2930; J3370; J3480; J7050; J7506; J7611; J7620; P9016

== ENCOUNTER 2017-05-28 11:34 | Emergency (ER) | payer MEDICARE, OTHER ==
[2017-05-28 12:11] LABS: #Basophils 0.1 thou/uL (0.0-0.2); #Lymphocytes 3.1 thou/uL (1.20-3.40); #Monocytes 0.6 thou/uL (0.11-0.59); #Neutrophils 8.3 thou/uL (1.40-6.50); %Basophils 0.7 % (0.0-1.0); %Eosinophils 0.3 % (0.0-10.0); %Lymphocytes 25.3 % (21.0-51.0); %Neutrophils 68.7 % (42.0-75.0); Hemoglobin 10.4 g/dL (14.0-18.0); Mean Corpuscular HGB CONC 31.8 g/dL (32.0-36.0); Mean Corpuscular Hemoglobin 29.8 pg (27.0-31.0); Mean Corpuscular Volume 93.9 fl (80.0-94.0); Mean Platelet Volume 7.8 fL (7.4-10.4); Platelet Count 277 thou/uL (130-400); Red Blood Cell (RBC) Count 3.49 mill/uL (4.70-6.10); White Blood Cell (WBC) Count 12.1 thou/uL (4.8-10.8)
[2017-05-28] MEDS ORDERED: Pantoprazole 40 MG VIAL ONE (12:15)
[2017-05-28 12:16] LABS: Bilirubin Negative (Negative); Blood, Urine Negative (Negative); Clarity CLEAR (Clear); Glucose, Urine (Dipstick) Negative (Negative); Leukocyte Moderate (Negative); Nitrite Negative (Negative); Protein, Urine (Dipstick) Negative (Neg-Trace); Specific Gravity, Urine 1.017 (1.002-1.036); Urobilinogen 0.2 mg/dL (0.2-1.0)
[2017-05-28 12:18] LABS: INR-International Normal Ratio 2.3; PTT 44.5 SEC (22.9-36.1)
[2017-05-28 12:19] LABS: Bacteria/HPF None Seen HPF (None Seen); Hyaline Casts/LPF 4-6 HYALINE CAST LPF (0-3 Hyaline); Pathc Cast-AUWi Flag 1.08 (0-2.49); Squamous Epithelial 0-3 HPF (0-3)
[2017-05-28 12:25] LABS: Yeast-AUWi Flag 198.6 (0-25.0)
[2017-05-28 12:33] LABS: RBC/HPF None Seen HPF (0-3); Yeast-All Forms 1+ HPF (None Seen)
[2017-05-28 12:39] LABS: ALT (SGPT) 14 U/L (8-55); AST (SGOT) 20 U/L (5-34); Albumin 2.9 g/dL (3.4-4.8); Alkaline Phosphatase 99 U/L (40-150); Anion Gap 10 mmol/L (10-20); BUN (Urea Nitrogen) 22 mg/dL (8.4-25.7); Bilirubin, Total 0.9 mg/dL (0.2-1.2); Calc. Creatinine Clearance 0 mL/min (70-130); Calcium 8.8 mg/dL (7.8-10.44); Carbon Dioxide 27 mmol/L (23-31); Chloride 102 mmol/L (98-107); Estimated GFR-MDRD Greater than 90; Globulin 2.1 g/dL (2.4-3.5); Glucose 115 mg/dL (83-110); Lipase 85 U/L (8-78); Potassium 3.7 mmol/L (3.5-5.1); Sodium 135 mmol/L (136-145)
== END 2017-05-28 12:52 | disposition home or self-care (01) ==
LOC: ERS 11:34
DX: K29.70 Gastritis, unspecified, without bleeding (principal); I25.10 Atherosclerotic heart disease of native coronary artery without angina pectoris; I48.91 Unspecified atrial fibrillation; E11.9 Type 2 diabetes mellitus without complications; I10 Essential (primary) hypertension; J44.9 Chronic obstructive pulmonary disease, unspecified; Z87.891 Personal history of nicotine dependence
CPT/HCPCS: 80053; 81003; 81015; 83690; 85025; 85610; 85730; 94760; 96374; C9113

== ENCOUNTER 2017-06-06 10:24 | Day surgery (SDC) | payer MEDICARE, OTHER ==
--- NOTE | 2017-06-06 06:00 | HP ---
DATE OF ADMISSION: 06/06/2017 HISTORY OF PRESENT ILLNESS: This is a 77-year-old male referred to me by Dr. Sandoval. He had a history of coffee ground emesis. The patient came to the ER a week ago with history of coffee-ground emesis. He also had abdominal pain. The patient takes Xarelto. The Xarelto has been discontinued. The patient has history of COPD, atrial fibrillation and also history of coronary artery disease . I did talk to Dr. Shabnam Powers, his investment counselor. Dr. Powers feels it is safe to go for an EGD. The patient brought to do an EGD, because of the above reason. ALLERGIES: None. MEDICAL ILLNESSES: 1. Paroxysmal atrial fibrillation. 2. Peripheral vascular disease. 3. Chronic obstructive pulmonary disease. 4. Chronic acid reflux. 5. Coronary artery disease with left mainstem occlusion. 6. Hypertension. 7. Hyperlipidemia. PHYSICAL EXAMINATION: GENERAL: He is a fragile looking male who appears comfortable. VITAL SIGNS: Stable. CARDIOVASCULAR: First and second heart sounds were normal. LUNGS: Clear to auscultation. ABDOMEN: Soft to palpate. No organomegaly. No tenderness. No masses. ADMITTING DIAGNOSIS: Coffee ground emesis a week ago. PLAN: EGD. MTDD
[2017-06-06] MEDS ORDERED: Ondansetron ODT 4 MG TAB ONE (14:06)
[2017-06-06] MEDS ORDERED: PROPOFOL 200 MG/20 ML VIAL ONE (16:30)
[2017-06-06] MEDS ORDERED: PHENYLEPHRINE-NS 100 MCG/ML 10 ML SYRINGE ONE (16:30)
[2017-06-06] MEDS ORDERED: Lidocaine 1% PF 5 ML VIAL ONE (16:30)
--- NOTE | 2017-06-06 19:09 | EKG ---
Test Reason : PREOP Blood Pressure : / mmHG Vent. Rate : 077 BPM Atrial Rate : 234 BPM P-R Int : 000 ms QRS Dur : 078 ms QT Int : 388 ms P-R-T Axes : 000 050 006 degrees QTc Int : 439 ms Atrial fibrillation with frequent ventricular-paced complexes Abnormal ECG When compared with ECG of 23-APR-2017 02:52, Electronic ventricular pacemaker has replaced Atrial fibrillation Confirmed by DR. Vance PHILIPPE ([id number]) on 06/06/2017 7:08:51 PM Referred By: JOHNNA Confirmed By:DR. Vance PHILIPPE
--- NOTE | 2017-06-06 21:33 | OP ---
DATE OF PROCEDURE: 06/06/2017 PREOPERATIVE DIAGNOSIS: A 77-year-old male with coffee-ground emesis a week ago. The patient takes Plavix and also Xarelto. The patient comes in for EGD, because of gastrointestinal bleeding. POSTOPERATIVE DIAGNOSES: 1. Normal esophagus and duodenum. 2. Multiple gastric ulcers, 2 of the stomach, including fundus, gastric body, incisura angularis. OPERATIVE PROCEDURE: Esophagogastroduodenoscopy. PROCEDURE NOTE: The patient was placed on his left lateral position and the throat was anesthetized with Cetacaine spray and the patient was given sedation by Anesthesia Department. A Pentax video gas troscope under direct vision was passed down the oropharynx, past the GE junction, into the stomach a nd subsequently into the descending duodenum. The esophageal mucosa appeared normal. The GE junctio n, no pathology seen. He does have a small hiatus hernia. The fundus showed a gastric ulcer, which is quite large and also appears chronic. He had multiple ulcers in the gastric body and also over th e incisura angularis. All the ulcers appears chronic and quite large. The gastric antrum, no patho logy seen. The duodenal bulb, descending duodenum, no pathology seen. No biopsy is taken and he is on two anticoagulation. . The stomach was decompressed and the scope removed. DISCHARGE RECOMMENDATIONS: 1. Start the patient on either Nexium 40 once a day or Protonix 40 once a day. 2. Risk of bleeding is very high within the presence of multiple gastric ulcers and patient being on Plavix and Xarelto.
== END 2017-06-06 15:40 | disposition home or self-care (01) ==
LOC: SDC 10:24
PROVIDERS: ATTEND Internal Medicine Gastroenterology
PROC: 0DJ08ZZ Inspection of Upper Intestinal Tract, Via Natural or Artificial Opening Endoscopic (ICD-10-PCS; principal; 2017-06-06)
DX: K25.7 Chronic gastric ulcer without hemorrhage or perforation (principal); K44.9 Diaphragmatic hernia without obstruction or gangrene; I48.0 Paroxysmal atrial fibrillation; I73.9 Peripheral vascular disease, unspecified; J44.9 Chronic obstructive pulmonary disease, unspecified; K21.9 Gastro-esophageal reflux disease without esophagitis; I25.10 Atherosclerotic heart disease of native coronary artery without angina pectoris; I10 Essential (primary) hypertension; E78.5 Hyperlipidemia, unspecified; Z79.01 Long term (current) use of anticoagulants; Z79.02 Long term (current) use of antithrombotics/antiplatelets; Z79.51 Long term (current) use of inhaled steroids; Z79.899 Other long term (current) drug therapy
CPT/HCPCS: 93005; 93010; 94640; J2001; J2704; J7620; Q0162

== ENCOUNTER 2017-06-25 10:14 | Inpatient (IN) | payer MEDICARE, OTHER ==
[2017-06-25 10:43] LABS: Bilirubin Negative (Negative); Blood, Urine Large (Negative); Clarity TURBID (Clear); Glucose, Urine (Dipstick) Negative (Negative); Leukocyte Large (Negative); Nitrite Positive (Negative); Protein, Urine (Dipstick) 30 mg/dL (Neg-Trace); Specific Gravity, Urine 1.014 (1.002-1.036); Urobilinogen 0.2 mg/dL (0.2-1.0)
[2017-06-25 10:45] LABS: Bacteria/HPF None Seen HPF (None Seen); Hyaline Casts/LPF 4-6 HYALINE CAST LPF (0-3 Hyaline); Pathc Cast-AUWi Flag 1.35 (0-2.49); Squamous Epithelial None Seen HPF (0-3); Yeast-AUWi Flag 2241.1 (0-25.0)
[2017-06-25 10:53] LABS: Yeast-All Forms 4+ HPF (None Seen)
[2017-06-25 11:17] LABS: #Eosinphils 0.1 thou/uL (0.0-0.7); #Lymphocytes 2.2 thou/uL (1.20-3.40); #Monocytes 0.8 thou/uL (0.11-0.59); #Neutrophils 13.3 thou/uL (1.40-6.50); %Basophils 0.3 % (0.0-1.0); %Eosinophils 0.5 % (0.0-10.0); %Lymphocytes 13.6 % (21.0-51.0); %Monocytes 4.8 % (0.0-10.0); %Neutrophils 80.8 % (42.0-75.0); Hemoglobin 11.2 g/dL (14.0-18.0); Mean Corpuscular HGB CONC 31.1 g/dL (32.0-36.0); Mean Corpuscular Hemoglobin 28.2 pg (27.0-31.0); Mean Corpuscular Volume 90.6 fl (80.0-94.0); Mean Platelet Volume 7.6 fL (7.4-10.4); Platelet Count 230 thou/uL (130-400); RBC Distribution Width 18.5 % (11.5-14.5); Red Blood Cell (RBC) Count 3.98 mill/uL (4.70-6.10); White Blood Cell (WBC) Count 16.4 thou/uL (4.8-10.8)
--- NOTE | 2017-06-25 11:40 | RAD ---
SINGLE VIEW OF THE CHEST: COMPARISON: 05/09/17. HISTORY: Altered mental status since Sunday. FINDINGS: A single view of the chest shows a normal-size cardiomediastinal silhouette. A pacemaker is seen wit h its leads in the right atrium and ventricle. Increased interstitial lung markings are present. Th ere appears to be a small right pleural effusion. IMPRESSION: Right pleural effusion. POS: [facility]
[2017-06-25 11:43] LABS: ALT (SGPT) 13 U/L (8-55); AST (SGOT) 21 U/L (5-34); Albumin 2.9 g/dL (3.4-4.8); Alkaline Phosphatase 105 U/L (40-150); Anion Gap 18 mmol/L (10-20); BUN (Urea Nitrogen) 17 mg/dL (8.4-25.7); Bilirubin, Total 0.9 mg/dL (0.2-1.2); Calc. Creatinine Clearance 0 mL/min (70-130); Calcium 9.1 mg/dL (7.8-10.44); Carbon Dioxide 23 mmol/L (23-31); Chloride 98 mmol/L (98-107); Estimated GFR-MDRD Greater than 90; Globulin 3.2 g/dL (2.4-3.5); Glucose 60 mg/dL (83-110); Lipase 15 U/L (8-78); Potassium 3.8 mmol/L (3.5-5.1); Protein, Total 6.1 g/dL (5.8-8.1); Sodium 135 mmol/L (136-145)
[2017-06-25] MEDS ORDERED: Gentamicin Sulfate 340 MG in Sodium Chloride 0.9% 100 ML IVPB SCH (15:00)
[2017-06-25] MEDS ORDERED: Acetaminophen 325 MG TAB PO PRN (15:17)
[2017-06-25] MEDS ORDERED: Senokot 8.6 MG TAB PO PRN (15:17)
[2017-06-25] MEDS: Sodium Chloride 0.9% 1,000 ML IV SCH ×2 (16:47→21:26)
[2017-06-25 16:57] VITALS: BMI 21.5
[2017-06-25] MEDS ORDERED: Fluconazole In NaCl,Iso-Osm 200 MG in Premix Bag 1 BAG IVPB SCH ×4 (18:15→20:00)
[2017-06-25] MEDS: Mometasone/Formoterol 120 PUFF INHALER INH SCH (18:23)
--- NOTE | 2017-06-25 18:52 | HP ---
REASON FOR ADMISSION: Sepsis, possible UTI with indwelling Renteria, possible CVA. HISTORY OF PRESENTING ILLNESS: Please note majority of this history is obtained by my talking to patient's and prior records as patient is not a very good historian. He lives at [facility] and was transferred here. Patient apparently was sitting in a wheelchair and slumped over. His speech was slurred. He was unable to eat and a decision was made to transfer him then. The patient is right-handed person. Currently, he has limp right upper extremity, but patient is able to move both lower extremities better. He does not appear to be in any distress at present. PAST MEDICAL AND SURGICAL HISTORY: History of atrial fibrillation, COPD, pacemaker, prior history of coronary artery disease, aortic stenosis. Cardiac catheterization done in 04/2017 showed 90% stenosis of left main, previous stent to the proximal LAD was patent. Left circumflex had multiple stenoses and was irregular and a small caliber vessel, proximal circumflex had 90% stenosis, first obtuse marginal midsection at 90% stenosis. Mid stent was patent. The patient subsequently had 2 stents put in May at [facility]. Upper endoscopy done on showed multiple gastric ulcers, two in the stomach, including fundus gastric body, incisura angularis, peripheral vascular disease, dyslipidemia. The patient had severe left main coronary artery disease and had stenting done at [facility] for the same, chronic anemia, severe deconditioning, diastolic heart failure, prior right common iliac stent, bilateral carotid occlusion status post right carotid endarterectomy, [employer] pacemaker, carpal tunnel release surgery on the left , cataract extraction with intraocular lens. CURRENT MEDICATIONS: Per [facility] records, patient is on Graff p.r.n. He was started on Levaquin on for suspected pneumonia, Protonix 40 mg p.o. daily, Xarelto 20 mg daily, ferrous sulfate 325 mg daily, Flomax 0.4 mg extended release daily, Lasix 40 mg daily, Plavix 75 mg daily, metoprolol 50 mg twice daily, potassium chloride 20 mEq p.o. daily, gabapentin 300 mg 2 capsules 3 times a day, atorvastatin 80 mg p.o. at bedtime, DuoNebs p.r.n. He is on 2 liters nasal cannula oxygen and has had Renteria catheter from 05/23/2017, Symbicort inhaler 160/4.5 mcg 2 puffs twice daily. ALLERGIES: No known drug allergies. PERSONAL HISTORY: Quit smoking in 04/2017. Smoke 2-3 packs a day for nearly 30 -40 years. Does not abuse alcohol or drugs. FAMILY HISTORY: Mother in her 60s from massive [place]. Father in his 80s due to old age. REVIEW OF SYSTEMS: Cannot be obtained as patient is not oriented. PHYSICAL EXAMINATION: GENERAL: The patient is a 77-year-old male who is currently not in any acute distress. VITAL SIGNS: Blood pressure 160/88, pulse 110 per minute, respiratory rate 22 per minute, temperature 97.4 degrees Fahrenheit, saturating 100% on 3 liters nasal cannula. NECK: Supple, no elevated JVD. EYES: Extraocular muscles intact. Pupils reacting to light. ORAL CAVITY: Mucous membranes are dry. No exudates or congestion. CARDIOVASCULAR SYSTEM: S1, S2 heard. Regular rhythm. RESPIRATORY SYSTEM: Air entry 1+ bilaterally. No rales or rhonchi. ABDOMEN: Soft, bowel sounds heard. No tenderness, rigidity or guarding. EXTREMITIES: No peripheral edema or calf tenderness. The patient has multiple skin excoriations seen as extremely dry skin with flaking. He also has what appears to be a small ulcer at the right metacarpophalangeal webspace with purulent discharge. Has an ulcer on the right heel and left ankle. CENTRAL NERVOUS SYSTEM: Patient is physically deconditioned and is also holding his right upper extremity limp with weakness. He is able to move with gravity in the same. He moves the other three extremities better, but more so weak on the right upper. Accurate neurologic exam is not possible due to patient's cognitive deficits at present. PSYCHIATRIC SYSTEM: The patient does not have any obvious hallucinations or delusions. IMAGING DATA AND LABORATORY DATA: Chest x-ray done shows right pleural effusion. Influenza A and B antigens are negative. Urinalysis shows positive nitrite, large leukocyte esterase, greater than 50 wbc's, but no bacteria seen. There is 4+ yeast. BUN is 17, creatinine 0.8, and glucose 60. Lactic acid is 2.5. Liver enzymes are within normal limits. Albumin is 2.9. Lipase is 15. White count of 16, hemoglobin and hematocrit 11 and 36, platelet count 230 with 80% neutrophils, MCV is 90. EKG done shows atrial fibrillation at 112 beats per minute. CLINICAL IMPRESSION AND PLAN: The patient will be admitted to telemetry for possible sepsis with indwelling Renteria catheter, likely fungal. We will place him on fluconazole and empirically cover him with cefepime, Levaquin, and vancomycin until cultures are back. Patient has physical deconditioning which has been progressively getting worse per . She does not want him to be resuscitated and wants him to be DNR. He has had left main and circumflex stent placed recently and is on Plavix and Xarelto along with Multaq. We will continue Plavix and Multaq for now. We will continue his Lipitor as well. He will be gently hydrated with normal saline at 100 mL per hour. Wound Care consultation will be requested as well. We will obtain a CT brain to rule out cerebrovascular accident. The patient has an AICD and cannot obtain an MRI. His overall prognosis is guarded with multiple medical issues at present. We will also consult Dr. Chakraborty for Infectious Disease. We will also obtain speech evaluation to rule out aspiration. [facility]
--- NOTE | 2017-06-25 19:20 | CT ---
CT BRAIN NONCONTRAST: HISTORY: 77-year-old male with acute CVA: Right sided weakness. FINDINGS: There is no midline shift or any other mass effect. There is no evidence of acute intracranial hemor rhage, large cortical infarct, obstructive hydrocephalus, or extraaxial fluid collection. The calvar ium is intact. IMPRESSION: No acute intracranial findings. renetta POS: [facility]
[2017-06-25 19:35] LABS: Lactic Acid 0.9 mmol/L (0.5-2.2)
[2017-06-25] MEDS ORDERED: Vancomycin HCl 1 GM in Sodium Chloride 0.9% 250 ML 250 ML IVPB SCH (21:00)
[2017-06-25] MEDS ORDERED: Cefepime 1 GM in Sodium Chloride 0.9% 100 ML IVPB SCH (21:00)
[2017-06-25] MEDS: Metoprolol Tartrate 50 MG TAB PO SCH (21:21)
[2017-06-25] MEDS: Gabapentin 300 MG CAP PO SCH (21:21)
[2017-06-25] MEDS: Docusate 100 MG CAP PO SCH (21:21)
[2017-06-25] MEDS: Famotidine 20 MG TAB PO SCH (21:21)
[2017-06-25] MEDS: Dronedarone HCl 400 MG TAB PO SCH (21:21)
[2017-06-25] MEDS: Cefepime 1 GM, Admixture Fee 1 EACH in Sodium Chloride 0.9% 10 ML SLOW IVP SCH (21:21)
[2017-06-26] MEDS: Vancomycin HCl 1 GM in Premix Bag 1 BAG IVPB SCH ×2 (05:30→16:14)
[2017-06-26 05:32] LABS: #Lymphocytes 1.9 thou/uL (1.20-3.40); #Monocytes 0.7 thou/uL (0.11-0.59); #Neutrophils 9.6 thou/uL (1.40-6.50); %Basophils 0.2 % (0.0-1.0); %Eosinophils 0.3 % (0.0-10.0); %Lymphocytes 15.4 % (21.0-51.0); %Monocytes 5.4 % (0.0-10.0); %Neutrophils 78.7 % (42.0-75.0); Mean Corpuscular HGB CONC 30.7 g/dL (32.0-36.0); Mean Corpuscular Hemoglobin 28.2 pg (27.0-31.0); Mean Corpuscular Volume 91.9 fl (80.0-94.0); Mean Platelet Volume 7.3 fL (7.4-10.4); Platelet Count 199 thou/uL (130-400); RBC Distribution Width 18.6 % (11.5-14.5); Red Blood Cell (RBC) Count 3.18 mill/uL (4.70-6.10); White Blood Cell (WBC) Count 12.2 thou/uL (4.8-10.8)
[2017-06-26] MEDS: Mometasone/Formoterol 120 PUFF INHALER INH SCH ×2 (05:53→18:20)
[2017-06-26 05:56] LABS: ALT (SGPT) 8 U/L (8-55); AST (SGOT) 18 U/L (5-34); Albumin 2.2 g/dL (3.4-4.8); Alkaline Phosphatase 81 U/L (40-150); Anion Gap 14 mmol/L (10-20); BUN (Urea Nitrogen) 16 mg/dL (8.4-25.7); Bilirubin, Total 0.5 mg/dL (0.2-1.2); Calc. Creatinine Clearance 74 mL/min (70-130); Carbon Dioxide 20 mmol/L (23-31); Chloride 105 mmol/L (98-107); Estimated GFR-MDRD Greater than 90; Globulin 2.6 g/dL (2.4-3.5); Potassium 3.4 mmol/L (3.5-5.1); Protein, Total 4.8 g/dL (5.8-8.1); Sodium 136 mmol/L (136-145)
[2017-06-26 05:59] LABS: Glucose 51 mg/dL (83-110)
[2017-06-26] MEDS ORDERED: Dextrose 50% Abboject 50 ML SYRINGE SLOW IVP PRN (06:10)
[2017-06-26] MEDS ORDERED: Dextrose 5% in Water 1,000 ML IV PRN (06:10)
[2017-06-26] MEDS ORDERED: Non-Formulary Item 1 EACH (Tiotropium Bromide [Spiriva Respimat] 2 INH) IH SCH (09:00)
[2017-06-26] MEDS ORDERED: Non-Formulary Item 1 EACH (Rivaroxaban [Xarelto] 15 MG) PO SCH (09:00)
[2017-06-26] MEDS: Tamsulosin HCl 0.4 MG CAP PO SCH (10:13)
[2017-06-26] MEDS: Ferrous Sulfate 325 MG TAB PO SCH (10:13)
[2017-06-26] MEDS: Rivaroxaban 15 MG TAB PO SCH (10:13)
[2017-06-26] MEDS: Metoprolol Tartrate 50 MG TAB PO SCH ×2 (10:13→21:46)
[2017-06-26] MEDS: Clopidogrel Bisulfate 75 MG TAB PO SCH (10:13)
[2017-06-26] MEDS: Fluconazole 100 MG TAB PO SCH (10:16)
[2017-06-26] MEDS: Dronedarone HCl 400 MG TAB PO SCH ×2 (10:16→21:45)
[2017-06-26] MEDS: Atorvastatin Calcium 40 MG TAB PO SCH (10:16)
[2017-06-26] MEDS: Famotidine 20 MG TAB PO SCH ×2 (10:16→21:46)
[2017-06-26] MEDS: Cefepime 1 GM, Admixture Fee 1 EACH in Sodium Chloride 0.9% 10 ML SLOW IVP SCH ×2 (10:17→21:46)
[2017-06-26] MEDS: Docusate 100 MG CAP PO SCH ×2 (10:17→21:45)
[2017-06-26] MEDS: Enoxaparin Sodium 40 MG/0.4 ML SYRINGE SC SCH (10:17)
[2017-06-26] MEDS: Sodium Chloride 0.9% 1,000 ML IV SCH (10:29)
[2017-06-26] MEDS: Gabapentin 300 MG CAP PO SCH ×3 (10:29→21:45)
--- NOTE | 2017-06-26 13:03 | CON ---
DATE OF CONSULTATION: 06/26/2017 REASON FOR CONSULTATION: Change in mental status, abnormal urinalysis. HISTORY OF PRESENT ILLNESS: A 77-year-old patient who is a resident of [facility] with a history of COPD, coronary artery disease, pacemaker, and prior carotid endarterectomy and significant cognitive dysfunction who was found slumping on the chair at the [facility]. According to the nurse, there had been no recorded fever prior to this event. He had displayed no evidence of aspiration. The patient has a chronic indwelling Renteria catheter, unclear the indication for that. There had been no reported diarrhea or constipation. After admission, his BP was identified at 160/88, pulse 110, respirations 22, temperature 97.4, O2 sat 100%. He had no evidence of jugular vein distention. Heart exam was normal. Lungs with 1+ bilateral air entry, no crackles or wheezing. Abdomen was soft, without tenderness. The patient has what they described as "excoriation" in the extremity. The right upper extremity was felt to be weak. The other three extremities had better movement. Initial data, white cell count 16,000, hemoglobin 11, platelets 230, with 80% neutrophils. Sodium 135, creatinine 0.81. Liver profile is normal. Albumin 2.9, globulin 3.2. Lactic acid was 2.5 and now is down to 0.9. Urinalysis with greater than 50 wbc's and microbiology results, pending blood cultures. There is a urine culture from 06/25/2017 with still pending results. Influenza A and B were negative. The patient had a chest x-ray which showed a right pleural effusion, pacemaker, increased interstitial lung markings. Brain CT scan with no acute intracranial findings. The patient has been given cefepime, levofloxacin, vancomycin and fluconazole. Currently, Mr. Kasper is awake. He does not appear in distress. He was disoriented. Denied any headaches, no sore throat. No back pain, no chest pain , no abdominal pain. He was concerned about the lesions in the skin of his right hand and forearm. The accuracy or reliability of his subjective account is limited because of cognitive issues. ALLERGIES: NONE. PAST MEDICAL HISTORY: Atrial fibrillation, coronary artery disease, prior stenting, COPD, pacemaker, peripheral vascular disease, endarterectomies, diastolic heart failure, carpal tunnel release, cataract extraction. MEDICATIONS: Meds at the long-term, had been given levofloxacin in the past , Protonix, Xarelto daily, Flomax extended release, Lasix, Plavix, metoprolol, potassium, gabapentin, atorvastatin, DuoNeb, Renteria catheter, Symbicort inhaler. PERSONAL HISTORY: Former smoker, quit smoking in 04/2017. FAMILY HISTORY: Coronary artery disease. PHYSICAL EXAMINATION: VITAL SIGNS: Temperature max 98.6, blood pressure 104/51, pulse 78, respirations 16, O2 sat 93-98%. SKIN: Shows a scabbed over a small ulcerations, dermatomal distribution of the C5-C6 right hand starting at the forearm and going towards the hand and radial aspect, there is a little bit larger irregular ulceration with yellow base in the first, second finger web space. No lymphadenopathy. Peripheral IV access. HEENT: Ocular movements are conjugate. Oral cavity with numerous missing teeth , the remainder ones with quite a bit of decay and gum disease. No oral mucosal lesion. NECK: Supple. No jugular vein distention. LUNGS: With symmetric breath sounds, little bit of wheezing in the mid lung ron. The right side has a few crackles. ABDOMEN: Soft, not distended or tender. No ascites. No bladder distention. : Renteria catheter in place. Genital evaluation normal. EXTREMITIES: Pulses 1+ in dorsalis pedis. NEUROLOGIC: Plantar responses are indifferent and diffusely weak. I could not find any focal weakness. He is awake, follows commands. Labs have been discussed above. White cell count down to 12,000, hemoglobin 9, platelets 199 with 78% neutrophils. ASSESSMENT: 1. Chronic obstructive pulmonary disease with coronary artery disease with pacemaker. 2. Peripheral vascular disease with prior endarterectomies. 3. Chronic smoking. 4. Indwelling Renteria catheter unknown indication with abnormal urinalysis. 5. Change in mental status, which seems to have resolved. 6. Elevated lactate and neutrophilia. DISCUSSION: Differential diagnosis includes an invasive urinary tract infection associated with Renteria catheterization versus aspiration pneumonia versus thromboembolism. Patient has Xarelto listed as a part of his medication profile in the long-term, which would decrease the risk of pulmonary embolism or thromboembolism, if he truly is taking it daily, he does have abnormal lung examination and in part may be due to cardiac dysfunction with interstitial edema. Aspiration pneumonia is not ruled out. It is important to image the abdominal area and pelvis to evaluate for possible obstructive findings. We will order a CT stone protocol for that. [facility]
--- NOTE | 2017-06-26 13:56 | CT ---
NONCONTRAST CT ABDOMEN AND PELVIS: 06/26/2017 HISTORY: Neutrophilia. Abnormal urinalysis. Tailbone pain. Sepsis and UTI. COMPARISON: Noncontrast CT thorax on 04/24/2017. FINDINGS: There is a small pericardial effusion, which has increased from prior exam. Again noted are moderate bilateral pleural effusions with consolidation at each lung base. Areas of consolidation may be rel ated to passive atelectasis, but bibasilar pneumonia is also a differential consideration. There is partial visualization of cardiac pacemaker leads. There are calcifications of the mitral va lve annulus partially imaged with dense vascular calcifications seen in the abdominal aorta and invol ving the iliac arteries. A vascular stent is present in the right common iliac artery. There are remote bilateral rib fractures. Degenerative changes are seen in the spine with S-shaped s coliotic curvature. There is a compression type fracture involving the T11 vertebral body, stable fr om prior exam. There is an exophytic increased density lesion involving the posterior aspect, mid portion, right kid brett, measuring 2.3 cm. This cannot be characterized as a simple cyst based on this exam. There is a subcentimeter, exophytic, slightly increased density lesion at the posterior aspect junction, mid po rtion, inferior pole, left kidney. There is a nonobstructing 3 mm calculus, mid portion, left kidney. No ureteral calculus is visualize d. A subcentimeter low density lesion is seen in the peripheral aspect of the body of the spleen, which was not definitely visualized on the prior exam. The gallbladder is mildly distended, measurin 10 cm in craniocaudal dimensions. The liver, pancreas, and bilateral adrenal glands demonstrate a grossly normal nonenhanced CT appeara nce. A Renteria catheter is present in a decompressed urinary bladder. There is colonic diverticulosis. Prominent degenerative changes are seen on the left at the lumbosacral junction. There is a mass-like, incompletely imaged density seen along the lateral aspect of the proximal right femoral diaphysis, which extends from the level of the lesser trochanter inferiorly. The most infer ior extent of this mass-like structure is not imaged. The greatest AP and transverse dimensions on t he visualized portions of this mass-like structure are 6.9 cm AP x 5.1 cm transverse. The adjacent c ortex of the proximal femur does appear intact, without cortical irregularity. This could represent a mass, such as sarcoma, in this region. While hematoma is not entirely excluded, there are no adjac ent areas of stranding to suggest that this is related to hematoma. Further evaluation with MRI is r ecommended. IMPRESSION: 1. Incomplete imaging of a mass-like structure along the lateral, anterolateral, and posterolateral aspect of the proximal right femoral diaphysis. Findings could be related to a neoplastic process. H ematoma is a differential consideration but thought less likely. Further evaluation with MRI is nida mmended. This should be performed with and without IV contrast, depending on the patient's renal fun ction. 2. Increased density lesion, posterior aspect, mid portion, right kidney, which cannot be characteri zed as a cyst. This may represent a hyperdense cyst, but further characterization with pre and post contrast imaging is recommended. In addition, there is a subcentimeter, [id number]-characterize, e xophytic lesion, inferior pole, left kidney. 3. Moderate size bilateral pleural effusions with bibasilar consolidation also seen on prior CT thor ax. Findings may be related to passive atelectasis, although bibasilar pneumonia should be considere d. 4. Small right pericardial effusion. 5. Nonobstructing left renal calculus. 6. Dense vascular calcifications. 7. Mild distention of the gallbladder. 8. Colonic diverticulosis. 9. Nonspecific presacral inflammatory stranding. The adjacent colonic wall does not appear to be th ickened. 10. Stable compression fracture of the T11 vertebral body. Multilevel degenerative changes are seen in the spine with S-shaped scoliotic curvature of the thoracolumbar spine. CODE T POS: [facility]
--- NOTE | 2017-06-26 16:59 | PDOC.PN ---
- Subjective Encounter Start Date: 06/26/17 Encounter Start Time: 09:00 Patient is seen today, more alert and orientd. explained about his Sepsis and UTI. He has No concer nsnoted. - Objective Resuscitation Status: Resuscitation Status DNR:Do Not Resuscitate MAR Reviewed: Yes Vital Signs & Weight: Vital Signs (12 hours) Temp Pulse Resp BP BP Pulse Ox 06/26/17 13:32 70 14 94 L 06/26/17 10:13 78 104/51 L 06/26/17 09:34 78 16 93 L 06/26/17 08:00 98.3 F 78 17 104/51 L 98 06/26/17 05:53 72 18 94 L 06/26/17 05:51 72 16 94 L Weight Admit Weight 137 lb 6 oz Weight 137 lb 6 oz I&O: 06/25/17 06/26/17 06/27/17 06:59 06:59 06:59 Intake Total 1525 240 Output Total 400 Balance 1125 240 Result Diagrams: 06/26/17 05:08 06/26/17 05:08 Additional Labs: Accuchecks 06/26/17 06:35 POC Glucose 92 Radiology Reviewed by me: Yes EKG Reviewed by me: Yes Phys Exam - Physical Examination HEENT: PERRLA, moist MMs Neck: no nodes, no JVD Respiratory: wheezing present Cardiovascular: RRR, no significant murmur Gastrointestinal: soft, non-tender Musculoskeletal: no edema, pulses present Neurological: non-focal, normal sensation Dx/Plan (1) Sepsis Code(s): A41.9 - SEPSIS, UNSPECIFIED ORGANISM Status: Acute Comment: Patient is on IV antibiotics, Responded, with improving WBC, ID consulted. (2) UTI (urinary tract infection) Status: Acute Qualifiers: Urinary tract infection type: catheter-associated UTI Comment: Contiue with IV Abx, improving pending [place] sensitivities. (3) COPD (chronic obstructive pulmonary disease) Status: Chronic Qualifiers: Comment: Stable O2 requirements. Not in exacerbartion. Continue RT, nebs (4) Coronary artery disease Code(s): I25.10 - ATHSCL HEART DISEASE OF [place] CORONARY ARTERY W/O ANG PCTRS Status: Chronic Qualifiers: Comment: CATH showed inoperable lesion (~90% blockage L main, calcified) Very poor prognosis as patient's clinical condition precluded CABG. Apparently [facility] in [place] willing to accept pt in transfer for operative mgmt. (5) PNA (pneumonia) Code(s): J18.9 - PNEUMONIA, UNSPECIFIED ORGANISM Status: Resolved Qualifiers: Comment: Chest xray neg, will look for Pneumonia if persistant SOB,, Swallow study today. - Plan cont current plan of care, diaz catheter, continue antibiotics, PT/OT, long term care social worker, speech therapy, incentive spirometry, out of bed/ambulate, DVT proph w /lovenox * . - Discharge Day Encounter end time: 09:35 Review of Systems - Review of Systems Eyes: negative: Pain, Vision Change, Conjunctivae Inflammation, Eyelid Inflammation, Redness, Other ENT: negative: Ear Pain, Ear Discharge, Nose Pain, Nose Discharge, Nose Congestion, Mouth Pain, Mouth Swelling, Throat Pain, Throat Swelling, Other Respiratory: negative: Cough, Dry, Shortness of Breath, Hemoptysis, SOB with Excertion, Pleuritic Pain, Sputum, Wheezing Cardiovascular: edema. negative: chest pain, palpitations, orthopnea, paroxysmal nocturnal dyspnea, light headedness, other Gastrointestinal: negative: Nausea, Vomiting, Abdominal Pain, Diarrhea, Constipation, Melena, Hematochezia, Other Genitourinary: negative: Dysuria, Frequency, Incontinence, Hematuria, Retention , Other Musculoskeletal: negative: Neck Pain, Shoulder Pain, Arm Pain, Back Pain, Hand Pain, Leg Pain, Foot Pain, Other Skin: negative: Rash, Lesions, Hao, Bruising, Other - Medications/Allergies Allergies/Adverse Reactions: Allergies Allergy/AdvReac Type Severity Reaction Status Date / Time No Known Drug Allergies Allergy Verified 06/25/17 16:26 Medications: Current Medications Acetaminophen (Tylenol) 650 mg PO Q4H PRN PRN Reason: Headache/Fever or Pain Albuterol/Ipratropium (Duoneb) 3 ml NEB QID-RT [facility] Last Admin: 06/26/17 13:32 Dose: 3 ml Atorvastatin Calcium (Lipitor) 80 mg PO DAILY [facility] Last Admin: 06/26/17 10:16 Dose: 80 mg Clopidogrel Bisulfate (Plavix) 75 mg PO DAILY [facility] Last Admin: 06/26/17 10:13 Dose: 75 mg Dextrose/Water (Dextrose 50%) 25 gm SLOW IVP PRN PRN PRN Reason: Hypoglycemia Diltiazem HCl (Cardizem Cd) 240 mg PO DAILY [facility] Last Admin: 06/26/17 10:13 Dose: 240 mg Docusate Sodium (Colace) 100 mg PO BID [facility] Last Admin: 06/26/17 10:17 Dose: Not Given Dronedarone (Multaq) 400 mg PO BID [facility] Last Admin: 06/26/17 10:16 Dose: 400 mg Enoxaparin Sodium (Lovenox) 40 mg SC 0900 [facility] Last Admin: 06/26/17 10:17 Dose: 40 mg Famotidine (Pepcid) 20 mg PO BID [facility] Last Admin: 06/26/17 10:16 Dose: 20 mg Ferrous Sulfate (Feosol) 325 mg PO DAILY [facility] Last Admin: 06/26/17 10:13 Dose: 325 mg Fluconazole (Diflucan) 100 mg PO DAILY [facility] Last Admin: 06/26/17 10:16 Dose: 100 mg Gabapentin (Neurontin) 300 mg PO TID [facility] Last Admin: 06/26/17 16:14 Dose: 300 mg Glucagon (Glucagon) 1 mg IM PRN PRN PRN Reason: Hypoglycemia Levofloxacin 500 mg/ Device 100 mls @ 100 mls/hr IVPB Q24HR [facility] Last Admin: 06/26/17 16:13 Dose: 100 mls Sodium Chloride (Normal Saline 0.9%) 1,000 mls @ 100 mls/hr IV .Q10H [facility] Last Admin: 06/26/17 10:29 Dose: 1,000 mls Cefepime HCl 1 gm/Miscellaneous Medication 1 each/ Sodium Chloride 10 mls @ 120 mls/hr SLOW IVP Q12HR [facility] Last Admin: 06/26/17 10:17 Dose: 10 mls Vancomycin HCl 1 gm/ Device 200 mls @ 200 mls/hr IVPB 0300,1500 [facility] Last Admin: 06/26/17 16:14 Dose: 200 mls Dextrose/Water (D5w) 1,000 mls @ 0 mls/hr IV .Q0M PRN; As Directed PRN Reason: Hypoglycemia Metoprolol Tartrate (Lopressor) 50 mg PO BID [facility] Last Admin: 06/26/17 10:13 Dose: 50 mg Miscellaneous Medication (Pharmacy To Dose) 1 each IVPB PRN PRN PRN Reason: . Mometasone Furoate/Formoterol Fumar (Dulera 200 Mcg/5 Mcg Inhaler) 2 puff INH BID-RT [facility] Last Admin: 06/26/17 05:53 Dose: 2 puff Rivaroxaban (Xarelto) 15 mg PO DAILY [facility] Last Admin: 06/26/17 10:13 Dose: 15 mg Senna (Senokot) 2 tab PO HSPRN PRN PRN Reason: Constipation Sodium Chloride (Flush - Normal Saline) 10 ml IVF Q12HR [facility] Last Admin: 06/26/17 10:17 Dose: Not Given Sodium Chloride (Flush - Normal Saline) 10 ml IVF PRN PRN PRN Reason: Saline Flush Tamsulosin HCl (Flomax) 0.4 mg PO DAILY [facility] Last Admin: 06/26/17 10:13 Dose: 0.4 mg
[2017-06-27] MEDS: Sodium Chloride 0.9% 1,000 ML IV SCH ×2 (00:21→13:20)
[2017-06-27 02:16] LABS: Vancomycin, Trough 23.8 ug/mL
[2017-06-27] MEDS ORDERED: Vancomycin HCl 750 MG in Sodium Chloride 0.9% 250 ML 250 ML IVPB SCH (03:00)
[2017-06-27] MEDS: Mometasone/Formoterol 120 PUFF INHALER INH SCH ×2 (06:53→19:30)
[2017-06-27] MEDS: Cefepime 1 GM, Admixture Fee 1 EACH in Sodium Chloride 0.9% 10 ML SLOW IVP SCH ×2 (10:08→21:02)
[2017-06-27] MEDS: Rivaroxaban 15 MG TAB PO SCH (10:08)
[2017-06-27] MEDS: Famotidine 20 MG TAB PO SCH ×2 (10:12→20:56)
[2017-06-27] MEDS: Dronedarone HCl 400 MG TAB PO SCH ×2 (10:12→20:57)
[2017-06-27] MEDS: Atorvastatin Calcium 40 MG TAB PO SCH (10:12)
[2017-06-27] MEDS: Metoprolol Tartrate 50 MG TAB PO SCH ×2 (10:12→20:56)
[2017-06-27] MEDS: Fluconazole 100 MG TAB PO SCH (10:13)
[2017-06-27] MEDS: Tamsulosin HCl 0.4 MG CAP PO SCH (10:13)
[2017-06-27] MEDS: Docusate 100 MG CAP PO SCH ×2 (10:13→20:56)
[2017-06-27] MEDS: Ferrous Sulfate 325 MG TAB PO SCH (10:13)
[2017-06-27] MEDS: Gabapentin 300 MG CAP PO SCH ×3 (10:13→20:56)
[2017-06-27] MEDS: Enoxaparin Sodium 40 MG/0.4 ML SYRINGE SC SCH (10:13)
[2017-06-27] MEDS: Clopidogrel Bisulfate 75 MG TAB PO SCH (10:14)
--- NOTE | 2017-06-27 11:54 | PDOC.PN ---
- Subjective Encounter Start Date: 06/27/17 Encounter Start Time: 11:00 PAtient is seen today, very drowsy and disoriented. Unable to Talk at this timke. Discussed with nurse pt has bveen drowsy since this morning too. - Objective Resuscitation Status: Resuscitation Status DNR:Do Not Resuscitate MAR Reviewed: Yes Vital Signs & Weight: Vital Signs (12 hours) Temp Pulse Resp BP BP Pulse Ox 06/27/17 10:09 72 101/58 L 06/27/17 10:08 58 L 14 06/27/17 08:00 97.6 F 72 18 93/56 L 93 L 06/27/17 06:55 72 14 06/27/17 04:32 97.6 F 83 20 92/52 L 94 L 06/27/17 00:37 97.7 F 75 20 94 L 06/27/17 00:00 97.7 F 75 20 91/51 L 94 L Weight Admit Weight 137 lb 6 oz Weight 137 lb 6 oz I&O: 06/26/17 06/27/17 06/28/17 06:59 06:59 06:59 Intake Total 1525 2667 Output Total 400 450 Balance 1125 2217 Result Diagrams: 06/26/17 05:08 06/26/17 05:08 Additional Labs: Accuchecks 06/27/17 06/26/17 06/26/17 04:40 20:51 16:15 POC Glucose 77 97 85 06/26/17 13:35 POC Glucose 129 H Radiology Reviewed by me: Yes EKG Reviewed by me: Yes Phys Exam - Physical Examination HEENT: PERRLA, moist MMs Neck: no nodes Respiratory: no wheezing, no rales Cardiovascular: RRR, no significant murmur Gastrointestinal: soft, non-tender Musculoskeletal: no edema, pulses present Neurological: non-focal, normal sensation Psychiatric: normal affect, A&O x 3 Dx/Plan (1) Sepsis Code(s): A41.9 - SEPSIS, UNSPECIFIED ORGANISM Status: Acute Comment: Patient is on IV antibiotics, Responded, with improving WBC, ID consulted. (2) UTI (urinary tract infection) Status: Acute Qualifiers: Urinary tract infection type: catheter-associated UTI Comment: Contiue with IV Abx, improving cultures growing yeast, Will d/c vancomycin.. (3) COPD (chronic obstructive pulmonary disease) Status: Chronic Qualifiers: Comment: Stable O2 requirements. Not in exacerbartion. Continue RT, nebs (4) Coronary artery disease Code(s): I25.10 - ATHSCL HEART DISEASE OF [place] CORONARY ARTERY W/O ANG PCTRS Status: Chronic Qualifiers: Comment: CATH showed inoperable lesion (~90% blockage L main, calcified) Very poor prognosis as patient's clinical condition precluded CABG. Apparently [facility] in [place] willing to accept pt in transfer for operative mgmt. (5) PNA (pneumonia) Code(s): J18.9 - PNEUMONIA, UNSPECIFIED ORGANISM Status: Resolved Qualifiers: Comment: Chest xray neg, will look for Pneumonia if persistant SOB,, Swallow study today. (6) Yeast UTI Code(s): B37.49 - OTHER UROGENITAL CANDIDIASIS Status: Acute Comment: Will start pt on Diflucan 200mg IV now and 100mg IV daily. - Plan cont current plan of care, continue antibiotics, PT/OT, social work assistant, respiratory therapy, incentive spirometry, DVT proph w/lovenox * . - Discharge Day Encounter end time: 11:35 Review of Systems - Review of Systems Eyes: negative: Pain, Vision Change, Conjunctivae Inflammation, Eyelid Inflammation, Redness, Other ENT: negative: Ear Pain, Ear Discharge, Nose Pain, Nose Discharge, Nose Congestion, Mouth Pain, Mouth Swelling, Throat Pain, Throat Swelling, Other Respiratory: negative: Cough, Dry, Shortness of Breath, Hemoptysis, SOB with Excertion, Pleuritic Pain, Sputum, Wheezing Cardiovascular: negative: chest pain, palpitations, orthopnea, paroxysmal nocturnal dyspnea, edema, light headedness, other Gastrointestinal: negative: Nausea, Vomiting, Abdominal Pain, Diarrhea, Constipation, Melena, Hematochezia, Other Genitourinary: negative: Dysuria, Frequency, Incontinence, Hematuria, Retention , Other Musculoskeletal: negative: Neck Pain, Shoulder Pain, Arm Pain, Back Pain, Hand Pain, Leg Pain, Foot Pain, Other - Medications/Allergies Allergies/Adverse Reactions: Allergies Allergy/AdvReac Type Severity Reaction Status Date / Time No Known Drug Allergies Allergy Verified 06/25/17 16:26 Medications: Current Medications Acetaminophen (Tylenol) 650 mg PO Q4H PRN PRN Reason: Headache/Fever or Pain Albuterol/Ipratropium (Duoneb) 3 ml NEB QID-RT [facility] Last Admin: 06/27/17 10:08 Dose: 3 ml Atorvastatin Calcium (Lipitor) 80 mg PO DAILY [facility] Last Admin: 06/27/17 10:12 Dose: 80 mg Clopidogrel Bisulfate (Plavix) 75 mg PO DAILY [facility] Last Admin: 06/27/17 10:14 Dose: 75 mg Dextrose/Water (Dextrose 50%) 25 gm SLOW IVP PRN PRN PRN Reason: Hypoglycemia Diltiazem HCl (Cardizem Cd) 240 mg PO DAILY [facility] Last Admin: 06/27/17 10:09 Dose: 240 mg Docusate Sodium (Colace) 100 mg PO BID [facility] Last Admin: 06/27/17 10:13 Dose: 100 mg Dronedarone (Multaq) 400 mg PO BID [facility] Last Admin: 06/27/17 10:12 Dose: 400 mg Enoxaparin Sodium (Lovenox) 40 mg SC 0900 [facility] Last Admin: 06/27/17 10:13 Dose: 40 mg Famotidine (Pepcid) 20 mg PO BID [facility] Last Admin: 06/27/17 10:12 Dose: 20 mg Ferrous Sulfate (Feosol) 325 mg PO DAILY [facility] Last Admin: 06/27/17 10:13 Dose: 325 mg Gabapentin (Neurontin) 300 mg PO TID [facility] Last Admin: 06/27/17 10:13 Dose: 300 mg Glucagon (Glucagon) 1 mg IM PRN PRN PRN Reason: Hypoglycemia Levofloxacin 500 mg/ Device 100 mls @ 100 mls/hr IVPB Q24HR [facility] Last Admin: 06/26/17 16:13 Dose: 100 mls Sodium Chloride (Normal Saline 0.9%) 1,000 mls @ 100 mls/hr IV .Q10H [facility] Last Admin: 06/27/17 00:21 Dose: 1,000 mls Cefepime HCl 1 gm/Miscellaneous Medication 1 each/ Sodium Chloride 10 mls @ 120 mls/hr SLOW IVP Q12HR [facility] Last Admin: 06/27/17 10:08 Dose: 10 mls Dextrose/Water (D5w) 1,000 mls @ 0 mls/hr IV .Q0M PRN; As Directed PRN Reason: Hypoglycemia Vancomycin HCl 750 mg/ Sodium (Chloride) 250 mls @ 200 mls/hr IVPB 0300,1500 [facility] Last Admin: 06/27/17 03:07 Dose: 250 mls Fluconazole/Sodium Chloride (100 mg/ Device) 50 mls @ 100 mls/hr IVPB DAILY [facility] Fluconazole/Sodium Chloride (200 mg/ Device) 100 mls @ 100 mls/hr IVPB NOW [facility] Stop: 06/27/17 14:00 Metoprolol Tartrate (Lopressor) 50 mg PO BID [facility] Last Admin: 06/27/17 10:12 Dose: 50 mg Miscellaneous Medication (Pharmacy To Dose) 1 each IVPB PRN PRN PRN Reason: . Mometasone Furoate/Formoterol Fumar (Dulera 200 Mcg/5 Mcg Inhaler) 2 puff INH BID-RT [facility] Last Admin: 06/27/17 06:53 Dose: 2 puff Rivaroxaban (Xarelto) 15 mg PO DAILY [facility] Last Admin: 06/27/17 10:08 Dose: 15 mg Senna (Senokot) 2 tab PO HSPRN PRN PRN Reason: Constipation Sodium Chloride (Flush - Normal Saline) 10 ml IVF Q12HR [facility] Last Admin: 06/27/17 10:14 Dose: 10 ml Sodium Chloride (Flush - Normal Saline) 10 ml IVF PRN PRN PRN Reason: Saline Flush Tamsulosin HCl (Flomax) 0.4 mg PO DAILY [facility] Last Admin: 06/27/17 10:13 Dose: 0.4 mg
[2017-06-27] MEDS ORDERED: Fluconazole In NaCl,Iso-Osm 200 MG in Premix Bag 1 BAG IVPB SCH ×2 (12:00)
--- NOTE | 2017-06-27 12:03 | PQF ---
CLINICAL DOCUMENTATION IMPROVEMENT CLARIFICATION FORM: ICD-10 Updated PLEASE DO AN ADDENDUM TO THE PROGRESS NOTE WITH ANY DOCUMENTATION UPDATES OR ADDITIONS AND CARRY THROUGH TO DC SUMMARY. THANK YOU. DATE: 06/27/17 ATTN: Dr. Redmond Please exercise your independent, professional judgment in responding to the clarification form. Clinical indicators are provided on the bottom of this form for your review Please check appropriate box(es): [ x] Sepsis due to UTI, due to indwelling diaz catheter [ ] Sepsis due to Pneumonia. [ ] Sepsis due to other: [ ] Localized infection without sepsis [ ] Other diagnosis [ ] Unable to determine In addition, please specify: Present on Admission (POA): [x ] Yes [ ] No [ ] Unable to determine For continuity of documentation, please document condition throughout progress notes and discharge summary. Thank You. CLINICAL INDICATORS - SIGNS / SYMPTOMS / LABS H&P: BP 160/88, PULSE 110, RESP 22 LACTIC ACID 2.5 WHITE COUNT OF 16 ADMITTED TO TELEMETRY FOR POSSIBLE SEPSIS W/ INDWELLING DIAZ CATHETER LIKELY FUNGAL. ID CONSULT: DIFFERENTIAL DIAGNOSIS INCLUDES AN INVASIVE UTI ASSOC. WITH DIAZ CATHETERIZATION VS ASPIRATION PNEUMONIA VS THROMBOEMBOLISM. PN 06/26: SEPSIS CATHETER - ASSOCIATED UTI PNEUMONIA . RESOLVED. RISKS: H&P: AGE 77. INTERMEDIATE RESIDENT. HX OF ATRIAL FIB, COPD, CAD. HAS HAD DIAZ CATHETER FROM 05/23/2017. TREATMENTS: CPOE 06/25: LEVAQUIN 500MG IV Q 24HR CPOE 06/25: CEFEPIME 1 GM SLOW IV Q 12 HR ORDER 06/25: IV VANCOMYCIN PRN, Thank you, Myesha (This form is maintained as a part of the permanent medical record) 2014 [employer]. All Rights Reserved Myesha Guevara RN, BSN [email or web address] Office: [phone] [facility] HE[facility] SERVICESLorena
--- NOTE | 2017-06-27 16:20 | PRG ---
DATE OF SERVICE: 06/27/2017 SUBJECTIVE: More alert. Still having a little bit trouble hearing. Family in the room today. Claus es any headaches, no respiratory symptoms, no abdominal pain. Voiding without difficulty. PHYSICAL EXAMINATION: VITAL SIGNS: His T-max 97.7, blood pressure 101/58, pulse 69, respirations 16, O2 sat 93% room air. GENERAL: Appears in no distress, chronically ill appearing. SKIN: Skin lesions are noted before. LUNGS: Symmetric air entry. HEART: S1, S2, regular rate. GASTROINTESTINAL: No abdominal findings. MUSCULOSKELETAL: Right thigh with no areas of swelling or ecchymosis noted in the hip either. LABORATORY DATA AND IMAGING DATA: White cell count 12.2, hemoglobin 9, platelets 199. Chemistry: S odium 136, creatinine 0.74. Liver profile normal. Albumin 2.2. We have urine culture with yeast sp ecies, greater than 100,000 CFUs. Two sets of blood culture showed no growth at 48 [address] pelvis [address] demonstrated small pericardial effusion, bilateral pleural effusions with consolidation in lung base and dense vascular calcifications seen in the abdominal aorta, remote rib fractures, co mpression fracture of T11, which is stable. There is increased density lesion in posterior aspect ri ght kidney 2.3 cm, nonobstructing calculus, mid portion of left kidney 3 mm, gallbladder is mildly di stended. Liver, pancreas, and adrenal glands normal. There was a mass-like incompletely imaged dens ity seen along the lateral aspect of the proximal right femoral diaphysis, which extends from the lev el of the lesser trochanter inferiorly. The greatest AP and transverse dimensions were 6.9 x 5.1 cm. No cortical irregularities noted. Further evaluation with MRI was recommended. ASSESSMENT AND DISCUSSION: Chronic obstructive pulmonary disease, coronary artery disease with pacem magali, peripheral vascular disease, chronic smoking, indwelling Renteria catheter, elevated lactate neutr ophilia. The previous differential diagnosis had been discussed with possible invasive urinary tract infection versus aspiration pneumonia, but now the patient has this mass which was serendipitously i dentified in the right femur. We will go ahead and image that area for identification purposes.
[2017-06-28] MEDS: Sodium Chloride 0.9% 1,000 ML IV SCH ×3 (02:02→16:44)
[2017-06-28 04:37] LABS: #Eosinphils 0.1 thou/uL (0.0-0.7); #Lymphocytes 1.6 thou/uL (1.20-3.40); #Monocytes 0.5 thou/uL (0.11-0.59); #Neutrophils 6.1 thou/uL (1.40-6.50); %Basophils 0.2 % (0.0-1.0); %Eosinophils 1.3 % (0.0-10.0); %Monocytes 6.3 % (0.0-10.0); %Neutrophils 73.2 % (42.0-75.0); Hemoglobin 8.8 g/dL (14.0-18.0); Mean Corpuscular Hemoglobin 29.1 pg (27.0-31.0); Mean Corpuscular Volume 93.9 fl (80.0-94.0); Mean Platelet Volume 7.6 fL (7.4-10.4); Platelet Count 184 thou/uL (130-400); RBC Distribution Width 18.3 % (11.5-14.5); Red Blood Cell (RBC) Count 3.04 mill/uL (4.70-6.10); White Blood Cell (WBC) Count 8.4 thou/uL (4.8-10.8)
[2017-06-28 04:43] LABS: Anion Gap 12 mmol/L (10-20); BUN (Urea Nitrogen) 13 mg/dL (8.4-25.7); Calc. Creatinine Clearance 79 mL/min (70-130); Calcium 7.9 mg/dL (7.8-10.44); Carbon Dioxide 20 mmol/L (23-31); Chloride 109 mmol/L (98-107); Estimated GFR-MDRD Greater than 90; Glucose 72 mg/dL (83-110); Sodium 138 mmol/L (136-145)
[2017-06-28 04:47] LABS: Potassium 2.5 mmol/L (3.5-5.1)
[2017-06-28] MEDS: Mometasone/Formoterol 120 PUFF INHALER INH SCH ×2 (06:43→19:29)
[2017-06-28] MEDS ORDERED: Fluconazole In NaCl,Iso-Osm 100 MG in Premix Bag 1 BAG IVPB SCH ×2 (09:00)
[2017-06-28] MEDS: Cefepime 1 GM, Admixture Fee 1 EACH in Sodium Chloride 0.9% 10 ML SLOW IVP SCH ×2 (09:59→21:55)
[2017-06-28] MEDS: Rivaroxaban 15 MG TAB PO SCH (09:59)
[2017-06-28] MEDS: Docusate 100 MG CAP PO SCH ×3 (10:00→22:09)
[2017-06-28] MEDS: Ferrous Sulfate 325 MG TAB PO SCH (10:00)
[2017-06-28] MEDS: Gabapentin 300 MG CAP PO SCH ×3 (10:00→21:56)
[2017-06-28] MEDS: Enoxaparin Sodium 40 MG/0.4 ML SYRINGE SC SCH (10:00)
[2017-06-28] MEDS: Famotidine 20 MG TAB PO SCH ×2 (10:00→21:55)
[2017-06-28] MEDS: Atorvastatin Calcium 40 MG TAB PO SCH (10:00)
[2017-06-28] MEDS: Tamsulosin HCl 0.4 MG CAP PO SCH (10:00)
[2017-06-28] MEDS: Clopidogrel Bisulfate 75 MG TAB PO SCH (10:01)
[2017-06-28] MEDS: Dronedarone HCl 400 MG TAB PO SCH ×3 (10:02→22:03)
[2017-06-28] MEDS: Metoprolol Tartrate 50 MG TAB PO SCH ×3 (10:05→22:01)
--- NOTE | 2017-06-28 14:47 | PDOC.PN ---
- Subjective Encounter Start Date: 06/28/17 Encounter Start Time: 12:00 Paitent seen today, Discussed about the mass on the Right Femur, which ID is evaaluting, with MRi. PT is lethargic and Confused. - Objective Resuscitation Status: Resuscitation Status DNR:Do Not Resuscitate MAR Reviewed: Yes Vital Signs & Weight: Vital Signs (12 hours) Temp Pulse Resp BP Pulse Ox 06/28/17 14:40 80 18 06/28/17 10:21 68 16 06/28/17 10:07 68 06/28/17 08:41 97.4 F L 68 16 103/61 93 L 06/28/17 08:00 97.4 F L 68 16 93 L 06/28/17 06:45 70 16 Weight Admit Weight 137 lb 6 oz Weight 137 lb 6 oz I&O: 06/27/17 06/28/17 06/29/17 06:59 06:59 06:59 Intake Total 2667 2811 Output Total 450 400 Balance 2217 2411 Result Diagrams: 06/28/17 04:03 06/28/17 04:03 Additional Labs: Accuchecks 06/28/17 06/28/17 06/27/17 11:39 04:24 19:55 POC Glucose 92 72 71 Radiology Reviewed by me: Yes Phys Exam - Physical Examination HEENT: PERRLA, moist MMs Neck: no nodes, no JVD Respiratory: no wheezing, no rales Cardiovascular: RRR, no significant murmur Gastrointestinal: soft, non-tender Musculoskeletal: no edema Neurological: non-focal Psychiatric: normal affect, A&O x 3 Dx/Plan (1) Sepsis Code(s): A41.9 - SEPSIS, UNSPECIFIED ORGANISM Status: Acute Comment: Patient is on IV antibiotics, Responded, with improving WBC, ID consulted, pt has Right femur mass, likley reason for failure to thrive, evalauting with MRI . (2) UTI (urinary tract infection) Status: Acute Qualifiers: Urinary tract infection type: catheter-associated UTI Comment: Contiue with IV Abx, improving cultures growing yeast, Will d/c vancomycin.. (3) COPD (chronic obstructive pulmonary disease) Status: Chronic Qualifiers: Comment: Stable O2 requirements. Not in exacerbartion. Continue RT, nebs (4) Coronary artery disease Code(s): I25.10 - ATHSCL HEART DISEASE OF [place] CORONARY ARTERY W/O ANG PCTRS Status: Chronic Qualifiers: Comment: CATH showed inoperable lesion (~90% blockage L main, calcified) Very poor prognosis as patient's clinical condition precluded CABG. Apparently [facility] in [place] willing to accept pt in transfer for operative mgmt. (5) PNA (pneumonia) Code(s): J18.9 - PNEUMONIA, UNSPECIFIED ORGANISM Status: Resolved Qualifiers: Comment: Chest xray neg, will look for Pneumonia if persistant SOB,, Swallow study showed high risk of aspiration with all consistency (6) Yeast UTI Code(s): B37.49 - OTHER UROGENITAL CANDIDIASIS Status: Acute Comment: Will start pt on Diflucan 200mg IV now and 100mg IV daily. (7) right Femur mass Status: Acute Comment: Mass suspicious for a malignancy, MRI pending now. - Plan cont current plan of care, continue antibiotics, PT/OT, social media analyst, speech therapy, respiratory therapy, incentive spirometry, DVT proph w/lovenox * . - Discharge Day Encounter end time: 12:35 Review of Systems - Review of Systems Respiratory: Cough, Shortness of Breath Cardiovascular: edema Gastrointestinal: Nausea Neurological: Confusion - Medications/Allergies Allergies/Adverse Reactions: Allergies Allergy/AdvReac Type Severity Reaction Status Date / Time No Known Drug Allergies Allergy Verified 06/25/17 16:26 Medications: Current Medications Acetaminophen (Tylenol) 650 mg PO Q4H PRN PRN Reason: Headache/Fever or Pain Albuterol/Ipratropium (Duoneb) 3 ml NEB QID-RT [facility] Last Admin: 06/28/17 14:40 Dose: 3 ml Atorvastatin Calcium (Lipitor) 80 mg PO DAILY [facility] Last Admin: 06/28/17 10:00 Dose: 80 mg Clopidogrel Bisulfate (Plavix) 75 mg PO DAILY [facility] Last Admin: 06/28/17 10:01 Dose: 75 mg Dextrose/Water (Dextrose 50%) 25 gm SLOW IVP PRN PRN PRN Reason: Hypoglycemia Diltiazem HCl (Cardizem Cd) 240 mg PO DAILY [facility] Last Admin: 06/28/17 10:07 Dose: Not Given Docusate Sodium (Colace) 100 mg PO BID [facility] Last Admin: 06/28/17 10:00 Dose: 100 mg Dronedarone (Multaq) 400 mg PO BID [facility] Last Admin: 06/28/17 10:02 Dose: 400 mg Enoxaparin Sodium (Lovenox) 40 mg SC 0900 [facility] Last Admin: 06/28/17 10:00 Dose: 40 mg Famotidine (Pepcid) 20 mg PO BID [facility] Last Admin: 06/28/17 10:00 Dose: 20 mg Ferrous Sulfate (Feosol) 325 mg PO DAILY [facility] Last Admin: 06/28/17 10:00 Dose: 325 mg Gabapentin (Neurontin) 300 mg PO TID [facility] Last Admin: 06/28/17 10:00 Dose: 300 mg Glucagon (Glucagon) 1 mg IM PRN PRN PRN Reason: Hypoglycemia Levofloxacin 500 mg/ Device 100 mls @ 100 mls/hr IVPB Q24HR [facility] Last Admin: 06/27/17 16:17 Dose: 100 mls Sodium Chloride (Normal Saline 0.9%) 1,000 mls @ 100 mls/hr IV .Q10H [facility] Last Admin: 06/28/17 09:58 Dose: 1,000 mls Cefepime HCl 1 gm/Miscellaneous Medication 1 each/ Sodium Chloride 10 mls @ 120 mls/hr SLOW IVP Q12HR [facility] Last Admin: 06/28/17 09:59 Dose: 10 mls Dextrose/Water (D5w) 1,000 mls @ 0 mls/hr IV .Q0M PRN; As Directed PRN Reason: Hypoglycemia Fluconazole/Sodium Chloride (100 mg/ Device) 50 mls @ 100 mls/hr IVPB DAILY [facility] Last Admin: 06/28/17 10:04 Dose: 50 mls Metoprolol Tartrate (Lopressor) 50 mg PO BID [facility] Last Admin: 06/28/17 10:05 Dose: Not Given Mometasone Furoate/Formoterol Fumar (Dulera 200 Mcg/5 Mcg Inhaler) 2 puff INH BID-RT [facility] Last Admin: 06/28/17 06:43 Dose: 2 puff Potassium Chloride (Klor-Con) 40 meq PO Q4HR [facility] Stop: 06/28/17 17:01 Last Admin: 06/28/17 10:04 Dose: 40 meq Rivaroxaban (Xarelto) 15 mg PO DAILY [facility] Last Admin: 06/28/17 09:59 Dose: 15 mg Senna (Senokot) 2 tab PO HSPRN PRN PRN Reason: Constipation Sodium Chloride (Flush - Normal Saline) 10 ml IVF Q12HR [facility] Last Admin: 06/28/17 10:04 Dose: 10 ml Sodium Chloride (Flush - Normal Saline) 10 ml IVF PRN PRN PRN Reason: Saline Flush Tamsulosin HCl (Flomax) 0.4 mg PO DAILY [facility] Last Admin: 06/28/17 10:00 Dose: 0.4 mg
[2017-06-28] MEDS ORDERED: Ondansetron ODT 4 MG TAB PO PRN (14:55)
--- NOTE | 2017-06-28 15:22 | RAD ---
BARIUM SWALLOW PERFORMED WITH SPEECH THERAPIST: HISTORY: Dysphagia with feeding difficulty. FINDINGS: The patient was given a variety of materials. With thin barium, a single episode of penetration was noted. With mechanical, soft texture food, the re is an episode of penetration and minimal aspiration demonstrated. There is persistent residue in the vallecular region with all residues. IMPRESSION: Findings as above. POS: HUSEYIN
--- NOTE | 2017-06-28 18:25 | PRG ---
DATE OF SERVICE: 06/28/2017 SUBJECTIVE: Delirious, having visions, chronically ill appearing. Denies any chest pain or abdomina l pain. OBJECTIVE: VITAL SIGNS: With normal temperature. LUNGS: Symmetric air entry. HEART: S1 and S2, regular rate. ABDOMEN: Soft. SKIN: Areas of bruising in the upper extremities. LABORATORY AND IMAGING DATA: White cell count down to 8.4, hemoglobin 8.8 and platelets 184. Sodium 138, potassium 2.5 and creatinine 0.69. Modified barium swallow study with a single episode of pene tration, minimal aspiration demonstrated, persistent residue in the vallecular region. ASSESSMENT AND DISCUSSION: Chronic obstructive lung disease, coronary artery disease, pacemaker, per ipheral vascular disease, chronic smoking, indwelling Renteria catheter and neutrophilia. Now, discussi ons regarding palliative care has been initiated. The patient cannot have an MRI because of pacemake r at this point and the issue of the mass in the right femur; it is somewhat moot point in view of th e plan for palliative care.
[2017-06-29] MEDS: Sodium Chloride 0.9% 1,000 ML IV SCH ×2 (04:22→14:14)
[2017-06-29] MEDS: Mometasone/Formoterol 120 PUFF INHALER INH SCH ×2 (06:31→18:22)
[2017-06-29] MEDS: Cefepime 1 GM, Admixture Fee 1 EACH in Sodium Chloride 0.9% 10 ML SLOW IVP SCH ×2 (09:53→20:30)
[2017-06-29] MEDS: Enoxaparin Sodium 40 MG/0.4 ML SYRINGE SC SCH (09:54)
[2017-06-29] MEDS: Tamsulosin HCl 0.4 MG CAP PO SCH (09:54)
[2017-06-29] MEDS: Rivaroxaban 15 MG TAB PO SCH (09:54)
[2017-06-29] MEDS: Metoprolol Tartrate 50 MG TAB PO SCH ×2 (09:55→20:37)
[2017-06-29] MEDS: Dronedarone HCl 400 MG TAB PO SCH ×2 (09:55→20:36)
[2017-06-29] MEDS: Docusate 100 MG CAP PO SCH ×2 (09:55→20:36)
[2017-06-29] MEDS: Ferrous Sulfate 325 MG TAB PO SCH (09:55)
[2017-06-29] MEDS: Gabapentin 300 MG CAP PO SCH ×3 (09:55→20:37)
[2017-06-29] MEDS: Clopidogrel Bisulfate 75 MG TAB PO SCH (09:55)
[2017-06-29] MEDS: Famotidine 20 MG TAB PO SCH ×2 (09:55→20:37)
[2017-06-29] MEDS: Atorvastatin Calcium 40 MG TAB PO SCH (09:55)
[2017-06-29] MEDS: Fluconazole In NaCl,Iso-Osm 100 MG in Premix Bag 1 BAG IVPB SCH ×2 (09:56)
--- NOTE | 2017-06-29 14:38 | PDOC.PN ---
- Subjective Encounter Start Date: 06/29/17 Encounter Start Time: 13:00 Paient is seen today, still remains confused. Pt has UTI/ with worsening Aspiration pneumonia. - Objective Resuscitation Status: Resuscitation Status DNR:Do Not Resuscitate MAR Reviewed: Yes Vital Signs & Weight: Vital Signs (12 hours) Temp Pulse Resp BP BP Pulse Ox 06/29/17 14:20 84 24 H 06/29/17 12:00 97.4 F L 73 16 101/61 96 06/29/17 10:29 74 20 92 L 06/29/17 09:54 75 122/75 06/29/17 08:00 97.4 F L 74 20 96 06/29/17 07:48 97.4 F L 75 16 122/75 92 L 06/29/17 06:28 71 22 H Weight Admit Weight 137 lb 6 oz Weight 137 lb 6 oz I&O: 06/28/17 06/29/17 06/30/17 06:59 06:59 06:59 Intake Total 2811 2730 Output Total 400 325 Balance 2411 2405 Result Diagrams: 06/28/17 04:03 06/28/17 04:03 Additional Labs: Accuchecks 06/29/17 06/29/17 06/28/17 11:22 04:56 21:18 POC Glucose 102 94 81 06/28/17 16:02 POC Glucose 68 L Radiology Reviewed by me: Yes Phys Exam - Physical Examination HEENT: PERRLA, moist MMs Neck: no nodes, no JVD Respiratory: wheezing present rales bilaterally upper lobes Cardiovascular: RRR, no significant murmur Gastrointestinal: soft, non-tender Musculoskeletal: no edema, pulses present Dx/Plan (1) Sepsis Code(s): A41.9 - SEPSIS, UNSPECIFIED ORGANISM Status: Acute Comment: Patient is on IV antibiotics, Responded, with improving WBC, ID consulted, pt has Right femur mass, jenniferley reason for failure to thrive, evalauting with MRI , is still pending. (2) UTI (urinary tract infection) Status: Acute Qualifiers: Urinary tract infection type: catheter-associated UTI Comment: Contiue with IV Abx, improving cultures growing yeast, Will d/c vancomycin.. (3) COPD (chronic obstructive pulmonary disease) Status: Chronic Qualifiers: Comment: Stable O2 requirements. Not in exacerbartion. Continue RT, nebs (4) Coronary artery disease Code(s): I25.10 - ATHSCL HEART DISEASE OF [place] CORONARY ARTERY W/O ANG PCTRS Status: Chronic Qualifiers: Comment: CATH showed inoperable lesion (~90% blockage L main, calcified) Very poor prognosis as patient's clinical condition precluded CABG. Apparently [facility] in [place] willing to accept pt in transfer for operative mgmt. (5) PNA (pneumonia) Code(s): J18.9 - PNEUMONIA, UNSPECIFIED ORGANISM Status: Resolved Qualifiers: Comment: Chest xray neg, will look for Pneumonia if persistant SOB,, Swallow study showed high risk of aspiration with all consistency (6) Yeast UTI Code(s): B37.49 - OTHER UROGENITAL CANDIDIASIS Status: Acute Comment: Will start pt on Diflucan 200mg IV now and 100mg IV daily. (7) right Femur mass Status: Acute Comment: Mass suspicious for a malignancy, MRI pending now. - Plan cont current plan of care, continue antibiotics, PT/OT, manager social work, speech therapy, respiratory therapy, incentive spirometry, DVT proph w/lovenox * . - Discharge Day Encounter end time: 13:35 Review of Systems - Review of Systems Eyes: negative: Pain, Vision Change, Conjunctivae Inflammation, Eyelid Inflammation, Redness, Other ENT: negative: Ear Pain, Ear Discharge, Nose Pain, Nose Discharge, Nose Congestion, Mouth Pain, Mouth Swelling, Throat Pain, Throat Swelling, Other Respiratory: Cough, Shortness of Breath, Wheezing. negative: Dry, Hemoptysis, SOB with Excertion, Pleuritic Pain, Sputum Cardiovascular: negative: chest pain, palpitations, orthopnea, paroxysmal nocturnal dyspnea, edema, light headedness, other Gastrointestinal: negative: Nausea, Vomiting, Abdominal Pain, Diarrhea, Constipation, Melena, Hematochezia, Other Genitourinary: negative: Dysuria, Frequency, Incontinence, Hematuria, Retention , Other - Medications/Allergies Allergies/Adverse Reactions: Allergies Allergy/AdvReac Type Severity Reaction Status Date / Time No Known Drug Allergies Allergy Verified 06/25/17 16:26 Medications: Current Medications Acetaminophen (Tylenol) 650 mg PO Q4H PRN PRN Reason: Headache/Fever or Pain Albuterol/Ipratropium (Duoneb) 3 ml NEB QID-RT [facility] Last Admin: 06/29/17 14:20 Dose: 3 ml Atorvastatin Calcium (Lipitor) 80 mg PO DAILY [facility] Last Admin: 06/29/17 09:55 Dose: 80 mg Clopidogrel Bisulfate (Plavix) 75 mg PO DAILY [facility] Last Admin: 06/29/17 09:55 Dose: 75 mg Dextrose/Water (Dextrose 50%) 25 gm SLOW IVP PRN PRN PRN Reason: Hypoglycemia Diltiazem HCl (Cardizem Cd) 240 mg PO DAILY [facility] Last Admin: 06/29/17 09:54 Dose: 240 mg Docusate Sodium (Colace) 100 mg PO BID [facility] Last Admin: 06/29/17 09:55 Dose: 100 mg Dronedarone (Multaq) 400 mg PO BID [facility] Last Admin: 06/29/17 09:55 Dose: 400 mg Famotidine (Pepcid) 20 mg PO BID [facility] Last Admin: 06/29/17 09:55 Dose: 20 mg Ferrous Sulfate (Feosol) 325 mg PO DAILY [facility] Last Admin: 06/29/17 09:55 Dose: 325 mg Gabapentin (Neurontin) 300 mg PO TID [facility] Last Admin: 06/29/17 09:55 Dose: 300 mg Glucagon (Glucagon) 1 mg IM PRN PRN PRN Reason: Hypoglycemia Levofloxacin 500 mg/ Device 100 mls @ 100 mls/hr IVPB Q24HR [facility] Last Admin: 06/28/17 16:29 Dose: 100 mls Sodium Chloride (Normal Saline 0.9%) 1,000 mls @ 100 mls/hr IV .Q10H [facility] Last Admin: 06/29/17 14:14 Dose: 1,000 mls Cefepime HCl 1 gm/Miscellaneous Medication 1 each/ Sodium Chloride 10 mls @ 120 mls/hr SLOW IVP Q12HR [facility] Last Admin: 06/29/17 09:53 Dose: 10 mls Dextrose/Water (D5w) 1,000 mls @ 0 mls/hr IV .Q0M PRN; As Directed PRN Reason: Hypoglycemia Fluconazole/Sodium Chloride (100 mg/ Device) 50 mls @ 100 mls/hr IVPB DAILY [facility] Last Admin: 06/29/17 09:56 Dose: 50 mls Metoprolol Tartrate (Lopressor) 50 mg PO BID [facility] Last Admin: 06/29/17 09:55 Dose: 50 mg Mometasone Furoate/Formoterol Fumar (Dulera 200 Mcg/5 Mcg Inhaler) 2 puff INH BID-RT [facility] Last Admin: 06/29/17 06:31 Dose: 2 puff Ondansetron HCl (Zofran Odt) 4 mg PO Q6H PRN PRN Reason: Nausea/Vomiting Rivaroxaban (Xarelto) 15 mg PO DAILY [facility] Last Admin: 06/29/17 09:54 Dose: 15 mg Senna (Senokot) 2 tab PO HSPRN PRN PRN Reason: Constipation Sodium Chloride (Flush - Normal Saline) 10 ml IVF Q12HR [facility] Last Admin: 06/29/17 09:56 Dose: 10 ml Sodium Chloride (Flush - Normal Saline) 10 ml IVF PRN PRN PRN Reason: Saline Flush Tamsulosin HCl (Flomax) 0.4 mg PO DAILY [facility] Last Admin: 06/29/17 09:54 Dose: 0.4 mg
[2017-06-30] MEDS: Sodium Chloride 0.9% 1,000 ML IV SCH (00:18)
[2017-06-30 06:02] LABS: Albumin 2.5 g/dL (3.4-4.8); Anion Gap 14 mmol/L (10-20); BUN (Urea Nitrogen) 18 mg/dL (8.4-25.7); BUN/Creatinine Ratio 16.22; Calc. Creatinine Clearance 49 mL/min (70-130); Calcium 8.5 mg/dL (7.8-10.44); Carbon Dioxide 14 mmol/L (23-31); Chloride 116 mmol/L (98-107); Estimated GFR-MDRD 64; Glucose 62 mg/dL (83-110); Magnesium 1.4 mg/dL (1.6-2.6); Phosphorus 3.7 mg/dL (2.3-4.7); Potassium 4.3 mmol/L (3.5-5.1); Sodium 140 mmol/L (136-145)
[2017-06-30 06:03] LABS: Hemoglobin 9.2 g/dL (14.0-18.0); Platelet Count 254 thou/uL (130-400)
[2017-06-30] MEDS: Mometasone/Formoterol 120 PUFF INHALER INH SCH ×2 (06:48→19:20)
--- NOTE | 2017-06-30 08:12 | RAD ---
PORTABLE CHEST: Date: 06/30/17 PROVIDED CLINICAL HISTORY: Shortness of breath. FINDINGS: Comparison made with the study dated 06/25/17. Cardiac silhouette remains enlarged. Prominence of the pulmonary vasculature and pulmonary interstiti um are redemonstrated. Right basilar pleural parenchymal opacity has developed, likely reflecting a c ombination of pleural fluid and adjacent infiltrate or atelectasis. There is bilateral perihilar air space disease suggesting alveolar edema. No evidence for pneumothorax. IMPRESSION: Findings compatible with congestive failure, with right pleural effusion and alveolar edema. Follow-u p is recommended. POS: CALLY
[2017-06-30] MEDS: Cefepime 1 GM, Admixture Fee 1 EACH in Sodium Chloride 0.9% 10 ML SLOW IVP SCH ×2 (10:42→21:47)
[2017-06-30] MEDS: Fluconazole In NaCl,Iso-Osm 100 MG in Premix Bag 1 BAG IVPB SCH ×2 (10:43)
[2017-06-30] MEDS: Famotidine 20 MG TAB PO SCH ×2 (10:44→21:49)
[2017-06-30] MEDS: Dronedarone HCl 400 MG TAB PO SCH ×2 (10:44→21:49)
[2017-06-30] MEDS: Ferrous Sulfate 325 MG TAB PO SCH (10:44)
[2017-06-30] MEDS: Atorvastatin Calcium 40 MG TAB PO SCH (10:44)
[2017-06-30] MEDS: Docusate 100 MG CAP PO SCH ×2 (10:44→21:48)
[2017-06-30] MEDS: Clopidogrel Bisulfate 75 MG TAB PO SCH (10:44)
[2017-06-30] MEDS: Metoprolol Tartrate 50 MG TAB PO SCH ×2 (10:45→21:52)
[2017-06-30] MEDS: Tamsulosin HCl 0.4 MG CAP PO SCH (10:45)
[2017-06-30] MEDS: Gabapentin 300 MG CAP PO SCH ×3 (10:45→21:49)
[2017-06-30] MEDS: Rivaroxaban 15 MG TAB PO SCH (10:45)
[2017-06-30] MEDS ORDERED: Sodium Chloride 0.9% 250 ML IV SCH (13:45)
--- NOTE | 2017-06-30 15:50 | PDOC.PN ---
- Subjective Encounter Start Date: 06/30/17 Encounter Start Time: 13:00 Patient is seen today, lethergic and drowsy, he has low blood pressures noted with Systolic in 70 - Objective Resuscitation Status: Resuscitation Status DNR:Do Not Resuscitate MAR Reviewed: Yes Vital Signs & Weight: Vital Signs (12 hours) Temp Pulse Resp BP Pulse Ox 06/30/17 14:16 74 26 H 100 06/30/17 10:43 79 06/30/17 10:10 79 20 96 06/30/17 08:05 71 18 84/54 L 96 06/30/17 08:00 97.4 F L 71 18 77/47 L 96 06/30/17 06:47 73 22 H 96 Weight Admit Weight 137 lb 6 oz Weight 137 lb 6 oz I&O: 06/29/17 06/30/17 07/01/17 06:59 06:59 06:59 Intake Total 2730 2150 Output Total 325 220 Balance 2405 1930 Result Diagrams: 06/30/17 05:13 06/30/17 05:13 Additional Labs: Accuchecks 06/30/17 06/30/17 06/29/17 11:30 05:38 19:40 POC Glucose 103 74 74 06/29/17 16:00 POC Glucose 79 Radiology Reviewed by me: Yes Phys Exam - Physical Examination HEENT: PERRLA, moist MMs Neck: no nodes JVD noted Respiratory: wheezing present Cardiovascular: RRR, no significant murmur Gastrointestinal: soft, non-tender Musculoskeletal: edema present Lymphatic: no nodes Dx/Plan (1) Hypotension Status: Acute Comment: Will do Fluid Bolus of 250ml, With Worseing CHF, pt will go into Acute Exacerbation of CHF, Poor prognosis with multiple Comorbidities, Family waiting to make decision regaring hospice, paliative care involved. (2) Sepsis Code(s): A41.9 - SEPSIS, UNSPECIFIED ORGANISM Status: Acute Comment: Patient is on IV antibiotics, Worseing mental status and Drop in Blood pressures from Sepsis. (3) UTI (urinary tract infection) Status: Acute Qualifiers: Urinary tract infection type: catheter-associated UTI Comment: Contiue with IV Abx, improving cultures growing yeast, Will d/c vancomycin.. (4) COPD (chronic obstructive pulmonary disease) Status: Chronic Qualifiers: Comment: worseing O2 requirements. . Continue RT, nebs, pt is DNR. (5) Coronary artery disease Code(s): I25.10 - ATHSCL HEART DISEASE OF [place] CORONARY ARTERY W/O ANG PCTRS Status: Chronic Qualifiers: Comment: CATH showed inoperable lesion (~90% blockage L main, calcified) Very poor prognosis as patient's clinical condition precluded CABG. Apparently [facility] in [place] willing to accept pt in transfer for operative mgmt. (6) PNA (pneumonia) Code(s): J18.9 - PNEUMONIA, UNSPECIFIED ORGANISM Status: Resolved Qualifiers: Comment: Chest xray today showed Worseing pulmonary edema., Will continue with IV antibitoics. (7) Yeast UTI Code(s): B37.49 - OTHER UROGENITAL CANDIDIASIS Status: Acute Comment: Will start pt on Diflucan 200mg IV now and 100mg IV daily. (8) right Femur mass Status: Acute Comment: Mass suspicious for a malignancy, MRI pending now. (9) Dysphagia Code(s): R13.10 - DYSPHAGIA, UNSPECIFIED Status: Acute - Plan cont current plan of care, PT/OT, pediatric social worker, speech therapy, respiratory therapy, incentive spirometry, DVT proph w/lovenox * . - Discharge Day Encounter end time: 13:35 Review of Systems - Review of Systems Other: Unable to get ROS, pt is too Drowsy to answer. - Medications/Allergies Allergies/Adverse Reactions: Allergies Allergy/AdvReac Type Severity Reaction Status Date / Time No Known Drug Allergies Allergy Verified 06/25/17 16:26 Medications: Current Medications Acetaminophen (Tylenol) 650 mg PO Q4H PRN PRN Reason: Headache/Fever or Pain Albuterol/Ipratropium (Duoneb) 3 ml NEB QID-RT [facility] Last Admin: 06/30/17 14:16 Dose: 3 ml Atorvastatin Calcium (Lipitor) 80 mg PO DAILY [facility] Last Admin: 06/30/17 10:44 Dose: Not Given Clopidogrel Bisulfate (Plavix) 75 mg PO DAILY [facility] Last Admin: 06/30/17 10:44 Dose: Not Given Dextrose/Water (Dextrose 50%) 25 gm SLOW IVP PRN PRN PRN Reason: Hypoglycemia Diltiazem HCl (Cardizem Cd) 240 mg PO DAILY [facility] Last Admin: 06/30/17 10:43 Dose: Not Given Docusate Sodium (Colace) 100 mg PO BID [facility] Last Admin: 06/30/17 10:44 Dose: Not Given Dronedarone (Multaq) 400 mg PO BID [facility] Last Admin: 06/30/17 10:44 Dose: Not Given Famotidine (Pepcid) 20 mg PO BID [facility] Last Admin: 06/30/17 10:44 Dose: Not Given Ferrous Sulfate (Feosol) 325 mg PO DAILY [facility] Last Admin: 06/30/17 10:44 Dose: Not Given Gabapentin (Neurontin) 300 mg PO TID [facility] Last Admin: 06/30/17 10:45 Dose: Not Given Glucagon (Glucagon) 1 mg IM PRN PRN PRN Reason: Hypoglycemia Levofloxacin 500 mg/ Device 100 mls @ 100 mls/hr IVPB Q24HR [facility] Last Admin: 06/29/17 16:32 Dose: 100 mls Cefepime HCl 1 gm/Miscellaneous Medication 1 each/ Sodium Chloride 10 mls @ 120 mls/hr SLOW IVP Q12HR [facility] Last Admin: 06/30/17 10:42 Dose: 10 mls Dextrose/Water (D5w) 1,000 mls @ 0 mls/hr IV .Q0M PRN; As Directed PRN Reason: Hypoglycemia Fluconazole/Sodium Chloride (100 mg/ Device) 50 mls @ 100 mls/hr IVPB DAILY [facility] Last Admin: 06/30/17 10:43 Dose: 50 mls Metoprolol Tartrate (Lopressor) 50 mg PO BID [facility] Last Admin: 06/30/17 10:45 Dose: Not Given Mometasone Furoate/Formoterol Fumar (Dulera 200 Mcg/5 Mcg Inhaler) 2 puff INH BID-RT [facility] Last Admin: 06/30/17 06:48 Dose: Not Given Ondansetron HCl (Zofran Odt) 4 mg PO Q6H PRN PRN Reason: Nausea/Vomiting Rivaroxaban (Xarelto) 15 mg PO DAILY [facility] Last Admin: 06/30/17 10:45 Dose: Not Given Senna (Senokot) 2 tab PO HSPRN PRN PRN Reason: Constipation Sodium Chloride (Flush - Normal Saline) 10 ml IVF Q12HR [facility] Last Admin: 06/30/17 10:43 Dose: 10 ml Sodium Chloride (Flush - Normal Saline) 10 ml IVF PRN PRN PRN Reason: Saline Flush Tamsulosin HCl (Flomax) 0.4 mg PO DAILY [facility] Last Admin: 06/30/17 10:45 Dose: Not Given
[2017-07-01] MEDS ORDERED: Haloperidol Lactate 5 MG/ML VIAL SLOW IVP SCH (01:15)
[2017-07-01] MEDS ORDERED: Sodium Chloride 0.9% 500 ML IV SCH (01:15)
[2017-07-01 01:28] VITALS: TEMP 97.3
[2017-07-01] MEDS: Metoprolol Tartrate 50 MG TAB PO SCH ×2 (06:22→08:32)
[2017-07-01] MEDS: Mometasone/Formoterol 120 PUFF INHALER INH SCH (06:23)
[2017-07-01] MEDS: Dronedarone HCl 400 MG TAB PO SCH (08:31)
[2017-07-01] MEDS: Docusate 100 MG CAP PO SCH (08:31)
[2017-07-01] MEDS: Atorvastatin Calcium 40 MG TAB PO SCH (08:31)
[2017-07-01] MEDS: Clopidogrel Bisulfate 75 MG TAB PO SCH (08:31)
[2017-07-01] MEDS: Famotidine 20 MG TAB PO SCH (08:31)
[2017-07-01] MEDS: Tamsulosin HCl 0.4 MG CAP PO SCH (08:32)
[2017-07-01] MEDS: Fluconazole In NaCl,Iso-Osm 100 MG in Premix Bag 1 BAG IVPB SCH ×2 (08:32)
[2017-07-01] MEDS: Cefepime 1 GM, Admixture Fee 1 EACH in Sodium Chloride 0.9% 10 ML SLOW IVP SCH (08:32)
[2017-07-01] MEDS: Rivaroxaban 15 MG TAB PO SCH (08:32)
[2017-07-01] MEDS: Gabapentin 300 MG CAP PO SCH (08:32)
[2017-07-01] MEDS: Ferrous Sulfate 325 MG TAB PO SCH (08:32)
[2017-07-01 11:26] VITALS: BP 132/92
--- NOTE | 2017-07-01 20:06 | DS ---
DATE OF ADMISSION: 06/25/2017 DATE OF EXPIRATION: 07/01/2017 SUMMARY DISCHARGE DIAGNOSES: 1. Sepsis, suspected from urinary tract infection. 2. Urinary tract infection with yeast species and in the context of chronic indwelling Renteria cathete r. 3. Acute metabolic encephalopathy, multifactorial. 4. Coronary artery disease. 5. Multiple gastric ulcers. 6. Severe peripheral vascular disease. 7. Bilateral carotid artery disease. 8. Status post pacemaker placement. 9. Chronic obstructive pulmonary disease. 10. Severe deconditioning. 11. Right proximal femoral diaphysis mass, incompletely imaged of the right femur. CONSULTATIONS: Dr. Chakraborty with Infectious Disease Service. PERTINENT LABORATORY DATA AND X-RAY FINDINGS: Potassium ranged between 2.5-4.3, lactic acid level ra nged between 0.9-2.5, phosphorus 3.7, and magnesium level 1.4. LFTs within normal limits. CBC showe d a white blood cell count ranging between 8.4-16.4, hemoglobin ranged between 8.8-11.2. Urine cultu re dated 06/25/2017 showed greater than 100,000 colonies of yeast species. Blood cultures x2 from showed no growth at 5 days. Influenza A and B antigen dated 06/25/2017 negative. Portable chest x-ray dated 06/25/2017 showed a right pleural effusion. CT of the brain without contrast dated 06/25/2017 showed no acute intracranial process. CT of the abdomen and pelvis dated 06/26/2017 show ed mass-like structure of the right proximal femoral diaphysis, incompletely imaged. Moderate size b ilateral pleural effusions with bibasilar consolidation. Nonobstructing left renal calculus. Please see dictated report for full details. Modified barium swallow study dated 06/28/2017 showed persist ent residue in the vallecular region with all residues. Penetration noted with minimal aspiration wi th mechanical and soft texture food. Portable chest x-ray dated 06/30/2017 showed increasing pulmona ry edema. HOSPITAL COURSE: Patient was initially admitted to the medical floor after presenting with suspected sepsis syndrome with acute encephalopathy and altered mentation. The patient underwent extensive ev aluation including metabolic and neuro imaging showing no evidence of an acute CVA. The patient was treated with broad-spectrum IV antibiotic therapy including cefepime, Levaquin, and vancomycin after concern for infectious process due to an indwelling Renteria catheter. Urine culture did show greater t myers 100,000 colonies of yeast species at which point the patient was treated with IV fluconazole. Th e patient was evaluated by the Infectious Disease Service with recommendations to continue therapy di rected at this organism. The patient also underwent general evaluation after concern for aspiration pneumonia. The patient had a single episode of mild penetration as stated previously under the study . The patient was noted with severe deconditioning with fluctuating mental status and encephalopathy . Despite supportive measures antibiotic therapy and directed therapy for yeast urinary infection, t he patient continued to clinically decline. The patient was noted with hypotensive episodes requirin g a small volume IV boluses of normal saline as well as intermittent treatment with Ativan for agitat ion. The patient's respiratory status and oxygen saturations fluctuated requiring acute intervention and adjustment to his oxygen supplementation. The patient was noted with decreasing urine output, w orsening change in mental status as well as hypotensive episodes with progressive clinical decline no ori on 07/01/2017. The patient was given increasing oxygen supplementation; however, the patient was unable to recover despite acute intervention. The patient with current DNR status without wishes fo r CPR or acute intervention. The patient at 13:55 p.m. on 07/01/2017. Family members were n otified and decedent affairs coordinated transfer of the patient.
--- NOTE | 2017-07-12 06:22 | PQF ---
OSWALDMARKUS HERRONBILLIE DO [id number] CLINICAL DOCUMENTATION CLARIFICATION FORM: POST DISCHARGE Addendum to original discharge summary date: 07/01/2017 DATE: 07/12/2017 ATTN: Dr. Herron Please exercise your independent, professional judgment in responding to the clarification form. Clinical indicators are provided on the bottom of this form for your review Please check appropriate box(s): [ ] Aspiration Pneumonia [ ] Empirically treating Gram Negative Pneumonia [ ] Empirically treating Anaerobic Pneumonia [ ] Pneumonia secondary to (specify organism / underlying disease) [ ] Simple Pneumonia (community acquired - nosocomial) [ ] Bronchopneumonia [ ] Pneumonia of unknown etiology [ ] Other diagnosis (please specify) [ x ] Unable to determine In addition, please specify: Present on Admission (POA): [ ] Yes [ ] No [ x ] Unable to determine For continuity of documentation, please document condition throughout progress notes and discharge summary. Thank You. CLINICAL INDICATORS - SIGNS / SYMPTOMS / LABS Barium swallow: dysphagia w/ feeding difficulty; with thin barium, single episode of penetration noted.. With Mechanical, soft texture food, there is an episode of penetration and minimal aspiration demonstrated. There is persistent residue in the vallecular region w/ all residues. H&P: speech eval to r/o aspiration. Palmer consult: aspiration PNA is not ruled out. PN 3-23 Gadam: worsening aspiration PNA. DC summary: underwent general eval for concern for aspiration PNA. Had single episode of mild penetration. Severe deconditioning. Hypotensive episodes requiring small IV boluses of NS. Respiratory status and oxygen supplementat. Pt was given increasing oxygen supplementation however, pt was unable to recover. 3-19 CXR: right pleural effusion. 3- ABD/Pelvis CT: Moderate bilateral pleural effusions w/ consolidation at each lung base. 3-24 CXR increasing pulmonary edema compatible w/ CHF. RISK FACTORS (per H&P) Dysphagia. History of smoking. COPD. Was started on Levaquin on 06/20 for suspected pneumonia. Physically deconditioned. TREATMENTS: (per progress notes) Maxipime IV / Levaquin IV. O2 therapy. IV fluids Serial CXRs (This form is maintained as a part of the permanent medical record) 2014 [employer]. All Rights Reserved [email or web address] [phone] [facility]
--- NOTE | 2017-07-12 06:39 | PQF ---
MARKUS AKERSBILLIE DO [id number] CLINICAL DOCUMENTATION CLARIFICATION FORM: POST DISCHARGE Addendum to original discharge summary date: 07/01/2017 DATE: 07/12/2017 ATTN: Dr. Herron Please exercise your independent, professional judgment in responding to the clarification form. Clinical indicators are provided on the bottom of this form for your review Please check appropriate box(s): ____x___ I (concur) with the Wound Care findings as stated below. Per wound care assessment 3-20 Pressure Ulcer Stage 3 Right heel. Pressure Ulcer left heel unstageable. Pressure Ulcer left sacrum stage 3. [ ] No pressure ulcer diagnosis [ ] Deep tissue injury [ ] Other diagnosis (please specify) [ ] Unable to determine In addition, please specify: Present on Admission (POA): [ x ] Yes [ ] No [ ] Unable to determine For continuity of documentation, please document condition throughout progress notes and discharge summary. Thank You. CLINICAL INDICATORS - SIGNS / SYMPTOMS / LABS H&P: ulcer on right heel and left ankle. RISK FACTORS: Per H&P: Physically deconditioned. TREATMENTS: Wound care consult (This form is maintained as a part of the permanent medical record) 2014 [employer] All Rights Reserved [email or web address] [phone] [facility]
--- NOTE | 2017-07-15 01:26 | EKG ---
Test Reason : Blood Pressure : / mmHG Vent. Rate : 112 BPM Atrial Rate : 277 BPM P-R Int : 000 ms QRS Dur : 088 ms QT Int : 384 ms P-R-T Axes : 000 038 229 degrees QTc Int : 524 ms Atrial fibrillation with rapid ventricular response with premature ventricular or aberrantly conducte d complexes Inferior infarct , age undetermined Abnormal ECG Confirmed by MIGUE BERGERON, ANATOLY ([id number]), magazine editor ROBY AYALA ([id number]) on 07/15/2017 1:25:33 AM Referred By: Confirmed By:ANATOLY CAMARENA MD
== END 2017-07-01 13:55 | disposition expired | DRG 698 ==
LOC: ERS 10:14 → 2NO 12:28 → T4-B 06-27 00:19
PROVIDERS: ADMIT Internal Medicine; ATTEND Internal Medicine
DX: Z87.891 Personal history of nicotine dependence; L97.419 Non-pressure chronic ulcer of right heel and midfoot with unspecified severity; L97.319 Non-pressure chronic ulcer of right ankle with unspecified severity; I48.91 Unspecified atrial fibrillation; M89.9 Disorder of bone, unspecified; I73.9 Peripheral vascular disease, unspecified; K25.9 Gastric ulcer, unspecified as acute or chronic, without hemorrhage or perforation; I50.32 Chronic diastolic (congestive) heart failure; T83.511A Infection and inflammatory reaction due to indwelling urethral catheter, initial encounter; I25.10 Atherosclerotic heart disease of native coronary artery without angina pectoris; Z95.5 Presence of coronary angioplasty implant and graft; J44.9 Chronic obstructive pulmonary disease, unspecified; Z66 Do not resuscitate; E78.5 Hyperlipidemia, unspecified; Y84.6 Urinary catheterization as the cause of abnormal reaction of the patient, or of later complication, without mention of misadventure at the time of the procedure; Z79.01 Long term (current) use of anticoagulants; Z79.899 Other long term (current) drug therapy; J18.9 Pneumonia, unspecified organism; A41.9 Sepsis, unspecified organism; Z79.02 Long term (current) use of antithrombotics/antiplatelets; G93.41 Metabolic encephalopathy; B37.49 Other urogenital candidiasis; Z95.810 Presence of automatic (implantable) cardiac defibrillator
CPT/HCPCS: 36415; 36416; 70450; 71045; 74176; 74230; 80048; 80053; 80069; 80202; 81003; 81015; 83605; 83690; 83735; 85014; 85018; 85025; 85049; 87040; 87086; 87804; 93005; 94640; 96361; 96374; 96375; A4216; G8996-GN-CK; G8996-GN-CL; G8997-GN-CI; G8997-GN-CL; J0692; J0696; J1450; J1580; J1630; J1650; J1956; J3370; J7050; J7620